=== PATIENT | female | born 1945 | race Caucasian/White ===

== ENCOUNTER → 2017-10-14 08:20 | Outpatient (CLI) | payer MEDICARE, SELFPAY | PROVIDERS: Family Provider Family Medicine; PCP Family Medicine; Visit Provider Obstetrics & Gynecology | DX: Z12.31 Encounter for screening mammogram for malignant neoplasm of breast (principal) | CPT/HCPCS: 77063; 77067 ==

== ENCOUNTER → 2018-10-16 | Outpatient (CLI) | payer MEDICARE, SELFPAY ==
--- NOTE | 2018-10-16 06:53 | BI_ITS ---
MAMMOGRAPHY - BILATERAL SCREENING - CAD and HAROON IMAGES REASON FOR EXAM: Female, 72 years old. Routine annual screening examination. PERTINENT HISTORY: Non-contributory. TECHNIQUE: Digital examination. Mediolateral oblique (MLO) and craniocaudad (CC) views of both breasts were obtained. CAD: CAD was performed on this study. Haroon images were reviewed. COMPARISON: Mammograms 10/14/2017, 10/13/2016 and 10/13/2015 FINDINGS: Breast Composition: The breasts are heterogeneously dense, which may obscure small masses. There are no suspicious masses, suspicious cluster of microcalcifications, architectural distortion or secondary sign of malignancy identified in either breast. Focal fibroglandular densities are noted bilaterally. Benign vascular and round calcifications are seen in both breasts. No other significant abnormalities are identified. CAD and Haroon were reviewed. BI/SCREEN MAMM (CAD) W/HAROON BILAT IMPRESSION: Stable bilateral screening mammogram. ASSESSMENT CATEGORY: BIRADS Category 2: Benign. A letter regarding these results will be sent to the patient by the facility within 30 days. FOLLOW UP RECOMMENDATION: Yearly follow up mammogram recommended. (A) Approximately 10% of breast cancers are not detected by mammography. A normal mammogram should not delay biopsy of a clinically suspicious abnormality. [id number] Electronically Signed: America Fitzgerald DO at 21:17 EDT Tel , Service support ,
== END | disposition home or self-care (01) ==
LOC: OPBI 07:26
PROVIDERS: Family Provider Family Medicine; PCP Family Medicine; Referring Provider Obstetrics & Gynecology; Visit Provider Obstetrics & Gynecology
DX: Z12.31 Encounter for screening mammogram for malignant neoplasm of breast (principal)
CPT/HCPCS: 77063; 77067

== ENCOUNTER → 2019-10-18 | Outpatient (CLI) | payer MEDICARE, SELFPAY ==
--- NOTE | 2019-10-18 07:03 | BI_ITS ---
MAMMOGRAPHY - BILATERAL SCREENING 3-D TOMOSYNTHESIS REASON FOR EXAM: Female, 73 years old. Routine screening PERTINENT HISTORY: FAM HX MAT AUNT AGE 45 -- NO SX. TECHNIQUE: 2-D mammograms and 3-D Tomosynthesis of the breast (s) were performed. CAD was performed. COMPARISON: 06/16/2018 FINDINGS: The breast composition is heterogeneously dense that can obscure small breast masses. Scattered benign calcifications are seen. No dense spiculated masses or suspicious microcalcifications are identified. No architectural distortion is identified. There is no skin thickening or retraction. There has been no significant change since the prior study. BI/SCREEN MAMM (CAD) W/HAROON BILAT IMPRESSION: No mammographic signs of malignancy. Routine yearly mammograms recommended. ASSESSMENT CATEGORY: BIRADS Category 2: Benign. A letter regarding these results will be sent to the patient by the facility within 30 days. FOLLOW UP RECOMMENDATION: Yearly follow up mammogram recommended. (A) Approximately 10% of breast cancers are not detected by mammography. A normal mammogram should not delay biopsy of a clinically suspicious abnormality. Electronically Signed: Jacinto Norton MD at 12:50 EDT , Service support ,
== END | disposition home or self-care (01) ==
LOC: OPBI 07:00
PROVIDERS: PCP Family Medicine; Referring Provider Obstetrics & Gynecology; Visit Provider Obstetrics & Gynecology
DX: Z12.31 Encounter for screening mammogram for malignant neoplasm of breast (principal)
CPT/HCPCS: 77063; 77067

== ENCOUNTER 2020-09-29 11:04 | Emergency (ER) | payer MEDICARE, SELFPAY ==
[2020-09-29 11:04] VITALS: BP 170/85; PULSE 87; RESP 18; TEMP 35.7; O2SAT 100; BMI 23.6
--- NOTE | 2020-09-29 11:22 | RAD_ITS ---
STUDY: X-RAY - LEFT SHOULDER REASON FOR EXAM: Female, 74 years old. trauma, shoulder pain TECHNIQUE: 2 view(s) of the shoulder. COMPARISON: None. FINDINGS: Inferior dislocation of the glenohumeral joint. Normal acromioclavicular joint. Normal acromion. Normal humeral head and visualized proximal humerus. The soft tissue structures are unremarkable. Normal visualized pulmonary apex. RAD/Shoulder min 2 Views IMPRESSION: Inferior dislocation of the glenohumeral joint. Electronically Signed: Jose Cruz Reid MD at 12:09 EDT Tel , Service support ,
[2020-09-29] MEDS: Acetaminophen 500 MG Tablet 1000 MG PO (11:29)
[2020-09-29] MEDS: Ondansetron ODT 4 MG Tablet PO (11:30)
--- NOTE | 2020-09-29 11:32 | EDS_ITS ---
HPI History of Present Illness Chief Complaint: Upper Extremity Injury Informant: patient and spouse/S.O. Narrative Narrative: Patient had a slip and fall. This was a mechanical trip. Was not syncope. She reached out and landed on her left hand which slid forward. She has some mild discomfort of her left hand elbow. Mostly her left shoulder hurts. Her shoulder is in an upward position at this time. However, she states she was able to get it down before. But spasm seems to keep it up. She denies hitting her head. She denies any pulmonary or chest symptoms. Patient is also allergic to almost are all narcotics. They cause significant nausea and vomiting. She cannot tolerate Tylenol so I will get her this. I will also give her Zofran to see if we can control her nausea pending the need for further medications. Patient is a history of high blood pressure Multiple allergies reviewed Medications and include hydrochlorothiazide and lisinopril PFSH PFSH no medical history Home Medications ondansetron HCl [Zofran] 4 mg PO Q6H PRN #14 tab 09/29/20 [Rx Last Taken Unknown] tramadol 50 mg PO Q6H PRN 3 Days #10 tab 09/29/20 [Rx Last Taken Unknown] Allergy/AdvReac Type Severity Reaction Status Date / Time acetaminophen Allergy Other Verified 09/29/20 11:07 [From Darvocet-N] oxycodone [From Percocet] Allergy Other Verified 09/29/20 11:07 Penicillins [PCN] Allergy Rash Verified 09/29/20 11:07 propoxyphene Allergy Other Verified 09/29/20 11:07 [From Darvocet-N] Social History Smoking Status: Never smoker ROS ROS ED Constitutional Constitutional ED: Denies frequent falls Eyes Eyes: Denies blurry vision or change in vision ENT ENT ED: Denies rhinorrhea Cardiovascular Cardiovascular: Denies chest pain Respiratory/Chest Respiratory/Chest: Denies dyspnea Gastrointestinal Gastrointestinal: Denies abdominal pain, nausea or vomiting Musculoskeletal Musculoskeletal: Reports other Details: See history of present illness. ; Denies back pain or neck pain Integumentary Reports Abrasions Neurologic Neurologic: Denies headache(s) or weakness Hematologic/Lymphatic Hematologic/Lymphatic: Denies easy bleeding or easy bruising EXAM Physical Exam Const Vital Signs: 09/29/20 11:04 Temperature 96.2 F L Temperature Source Temporal Pulse Rate 87 Respiratory Rate 18 Blood Pressure 170/85 H Blood Pressure Mean 113 Pulse Ox 100 Oxygen Delivery Method Room Air Positive well nourished and well developed General Appearance ED: well developed HEENT normocephalic and atraumatic; Negative for trauma Eyes PERRL and EOMs intact bilaterally Neck full ROM and supple General: Negative for tenderness Chest Wall inspection of chest normal Resp normal respiratory effort and clear to auscultation bilaterally Effort and Inspection: Negative for pain with movement Auscultation: Negative for wheezes Cardio regular rate and regular rhythm GI non-tender Palpation: soft Back/Spine no CVA tenderness Thoracic Spine / Upper Back: Negative for thoracic spinal tenderness Lumbar Spine / Lower Back: Negative for lumbar spinal tenderness Extremity Extremity Narrative: Patient has an abrasion to her left thenar eminence and left elbow. No notable tenderness is that in that area. Her left shoulder is held in an upright position. Distal pulses are intact. I did not move this down initially pending x-rays. Neuro oriented x3 Sensorium / Orientation: alert MDM MDM MDM Narrative Medical decision making narrative: Repeat imaging after procedural sedation and reduction shows good position. Patient feels much better. She states the wrist and elbow are not really hurting now. They are not tender. Her exam is much easier as she is much more relaxed and not having pain from the shoulder. We will cancel these x-rays at this time. She will follow up with orthopedics. I explained that she can have stiffness from the shoulder. She should see o rthopedics in the next couple days. I will write her for some pain meds. I will write for some Zofran as she has had problems with nausea with pain meds. Procedures Other Procedures Procedure(s): Procedural sedation and left shoulder reduction. I discussed risk benefits and options with patient and her . She did want to pursue sedation. Last meal was over 5 hours ago. Only problems with anesthesia or sensitivity to dosage of medicines. She has a Mallampati of 2. No significant cardiorespiratory illnesses. Patient is preoxygenated. All questions were answered. A timeout was done. She received a total of 60 mg of Diprivan?20, 20, 20. We had good sedation. No hypoxia. Slight external rotation and traction reduce the shoulder clinically. It is in good position clinically. Patient woke up and she is talking to us. She can tell me exactly what finger on touching. Motor sense is also intact. She has normal capillary refill. We are awaiting postreduction x-rays. Discharge Plan Triage Chief Complaint: Upper Extremity Injury ED Provider: Roddy Harrison Dx/Rx/DC Orders Clinical Impression: Fall from slipping, Dislocation of shoulder, left, closed, Contusion of elbow, left, Contusion of hand, left Instructions: ED Dislocation: Shoulder (Reduced), ED Sling and Swathe Prescriptions: New ondansetron HCl [Zofran] 4 mg tablet 4 mg PO Q6H PRN (Reason: nausea and vomiting) Qty: 14 RF: 0 tramadol 50 mg tablet 50 mg PO Q6H PRN (Reason: pain) 3 Days Qty: 10 RF: 0 Primary Care Provider: Zoë Ruth Referrals: Roma Leary DO [STAFF PHYSICIAN] - 2 Days Zoë Ruth MD [Primary Care Provider] - Disposition Disposition: Home, Self Care
[2020-09-29 12:49] VITALS: BP 119/68; BP 123/63; BP 143/80; BP 161/67; PULSE 77; PULSE 81; PULSE 82; PULSE 85; PULSE 90; PULSE 94; RESP 14; RESP 16; RESP 18; O2SAT 100; O2SAT 98; O2SAT 99
[2020-09-29] MEDS: Morphine 2 MG/ML Syringe IV (12:54)
--- NOTE | 2020-09-29 13:15 | RAD_ITS ---
INDICATION: post reduction EXAMINATION/TECHNIQUE: X-RAY - LEFT XR Shoulder Min 2 Views 2 VIEWS COMPARISON: Previous left shoulder x-rays obtained earlier on 2020 FINDINGS: The left humeral head is now in the better anatomic position and alignment. There is some mild irregularity involving the superior aspect of the humeral head. On these limited to x-rays of the left humeral head determination of the a Hill-Sachs deformity cannot be completely evaluated or and included or excluded on this study. Dedicated 3 view x-rays of the left shoulder might be helpful for additional evaluation. 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 RAD/Shoulder min 2 Views IMPRESSION: There has been interval reduction of the previously noted dislocated left shoulder which is now in good position and alignment. There is some irregularity of the superior lateral humeral head, and an underlying Hill-Sachs deformity cannot be excluded. Electronically Signed: Rodney Bowman DO at 13:52 EDT Tel , Service support ,
[2020-09-29 13:25] VITALS: BP 119/76; PULSE 84; PULSE 86; RESP 18; O2SAT 98; O2SAT 99
[2020-09-29] MEDS: Propofol 200 MG/20 ML Vial 20 MG IV BOLUS (13:28)
[2020-09-29 14:33] VITALS: BP 113/62; PULSE 77; RESP 18; O2SAT 96
== END 2020-09-29 14:39 | disposition home or self-care (01) ==
PROVIDERS: Emergency Provider Emergency Medicine; PCP Internal Medicine
DX: S43.085A Other dislocation of left shoulder joint, initial encounter (principal); S50.02XA Contusion of left elbow, initial encounter; S60.222A Contusion of left hand, initial encounter; I10 Essential (primary) hypertension; W01.0XXA Fall on same level from slipping, tripping and stumbling without subsequent striking against object, initial encounter; Y93.89 Activity, other specified; Y92.009 Unspecified place in unspecified non-institutional (private) residence as the place of occurrence of the external cause; Y99.8 Other external cause status
CPT/HCPCS: 23650; 73030; 96374; 96375; 99152; 99284; J7030; A4216

== ENCOUNTER → 2020-10-20 07:02 | Outpatient (CLI) | payer MEDICARE, SELFPAY ==
--- NOTE | 2020-10-20 07:04 | BI_ITS ---
MAMMOGRAPHY - BILATERAL SCREENING REASON FOR EXAM: Female, 74 years old. Routine annual screening examination. PERTINENT HISTORY: Aunt with breast cancer. TECHNIQUE: Digital bilateral breast haroon (3D mammographic acquisition) in the CC and MLO projections. 2-D mediolateral oblique (MLO) and craniocaudad (CC) views of both breasts were obtained. CAD: Full Field Digital Mammography with Computer Added Detection was performed. COMPARISON: Comparison is made with prior study dated 10/18/2019 and 10/16/2018. FINDINGS: Breast Composition: The breasts are heterogeneously dense, which may obscure small masses. There are no dominant masses or suspicious calcifications. Stable benign-appearing bilateral axillary. No other significant abnormalities are identified. There has been no significant change since the prior study. BI/SCRN MAMM (CAD)W/HAROON BILAT IMPRESSION: Stable bilateral screening mammogram. Yearly follow-up mammogram recommended. (A) ASSESSMENT CATEGORY: BIRADS Category 2: Benign. A letter regarding these results will be sent to the patient by the facility within 30 days. Approximately 10% of breast cancers are not detected by mammography. A normal mammogram should not delay biopsy of a clinically suspicious abnormality. [id number] Electronically Signed: Kailash López MD at 8:30 EDT , Service support ,
== END ==
PROVIDERS: PCP Internal Medicine; Referring Provider Internal Medicine; Visit Provider Internal Medicine
DX: Z12.31 Encounter for screening mammogram for malignant neoplasm of breast (principal)
CPT/HCPCS: 77063; 77067

== ENCOUNTER 2020-11-13 11:00 | Outpatient (RCR) | payer MEDICARE, SELFPAY ==
[2020-10-01 10:37] VITALS: BMI 23.6
--- NOTE | 2020-10-08 12:19 | HP.PTEVAL ---
Patient's Visit Information AJ AREVALO is a 74 year old F referred to Physical Therapy by RODRI Fitzpatrick with a diagnosis of L shoulder dislocation. Date of Evaluation: 10/08/20 Physical Therapist: Patrick Machado PT, ATC - Visit Plan Frequency: 2-3x /Week Duration: 4-6 Weeks Plan: L shoulder overhead pulleys into flex and scaption, rotator cuff strengthening, scap stab ex's, UBE, and HEP - Subjective DOI: one week ago. Pt reports she was walking on a sidewalk and tripped, resulting in a dislocation of the L shoulder. Pt reports She has had B rotator cuff tear and repairs approx 20 years ago. Pt reports she had to go to the ER to have her shoulder relocated. Pt notes she is ambidetrious being able to use both arms equally. Pt reports no tingling or numbness in L UE. Pt notes she has no sleep difficulty secondary to pain. Pt notes she has been told she may have torn her rotator cuff. 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 Pt reports she would like to get back to her normal ex's as soon as possible. Pt reports she is in no pain today, and really hasnt been in pain since the injury date. - Objective Neuro: B UE sensation is WNL to light touch. bicepital reflex= 1/3. ROM: R shoulder flex= 155, abd= 140, ER= 65, IR WNL; L shoulder flex= 105, abd= 100, ER= 40. MMT: R shoulder 5/5 throughout, L shoulder 3-/5 and painful - Balance/Special Test Scores Quick DASH Score: 47.7250 - Goals Goal 1:: Decrease L shoulder pain x 50% to aid with IADL's Goal Time Frame: 4-6 Weeks Goal 2:: Increase L shoulder strength x 1 grade to aid with return to exercise without limitation Goal Time Frame: 4-6 Weeks Goal 3:: Increase L shoulder flex and abd ROM x 20 degrees to aid with IADL's Goal Time Frame: 4-6 Weeks Goal 4:: I with HEP Goal Time Frame: 4-6 Weeks - Rehabilitation Potential Physical Therapy Diagnosis: L shoulder pain, weakness, and limited ROM secondary to L shoulder dislocation Rehabilitation Potential: Good - Anticipated Interventions Patient/Client Instruction: Educate patient on: Condition, Plan of Care For the Purpose of:: To improve self management Therapeutic Exercise to Include: Strength training, Body mechanics, Active ROM, Scapular Strength/Stabilization For the Purpose of:: To decrease pain, To increase ROM, To improve muscle performance and motor function Cryotherapy (ice pack, ice massage): Yes For the Purpose of:: To decrease pain Thank you for the opportunity to evaluate your patient. For Medicare and Medicare HMO plans, please review the plan of care and approve it. It will need to be FAXED BACK to us at [phone] for Medicare purposes. For Medicare only, by signing this I certify the plan of care. Please let me know if there are questions or concerns regarding this plan of care. Physician Signature: Date:
--- NOTE | 2020-11-13 11:25 | HP.PTDCSUM ---
It has been my pleasure to treat AJ AREVALO referred by RODRI Fitzpatrick, with the diagnosis of L shoulder dislocation for a total of 17 visit(s). Discharge Date: Please see the following information for a summary of their discharge status. Subjective: Pain is about the same L shoulder Pain Intensity (Out of 10): 1 % Improvement: 95 Objective/Function: R shoulder pain 1/10 currently. R shoulder MMT: B shoulders are grossly 4/5 throughout. R shoulder ROM: flex= 145, abd= 150. Pt is I with HEP. Rx goals achieved Goal 1:: Decrease L shoulder pain x 50% to aid with IADL's Goal Progress: Goal Met Goal 2:: Increase L shoulder strength x 1 grade to aid with return to exercise without limitation Goal Progress: Goal Met Goal 3:: Increase L shoulder flex and abd ROM x 20 degrees to aid with IADL's Goal Progress: Goal Met Goal 4:: I with HEP Goal Progress: Goal Met Plan: Discharge to HEP If there are questions or concerns regarding this patient's physical therapy, please feel free to call me at [phone]. Thank you for the referral of this patient. Sincerely, Patrick Machado, PT, ATC Balance/Gait/Functional tests - Balance/Special Test Scores Quick DASH Score: 15.9075
== END 2020-11-13 19:00 | disposition home or self-care (01) ==
LOC: PT 11:00
PROVIDERS: PCP Internal Medicine
DX: S43.005D Unspecified dislocation of left shoulder joint, subsequent encounter (principal); X58.XXXD Exposure to other specified factors, subsequent encounter; M19.012 Primary osteoarthritis, left shoulder; Z87.828 Personal history of other (healed) physical injury and trauma
CPT/HCPCS: 97110; 97161; 97164

== ENCOUNTER → 2021-10-21 | Outpatient (CLI) | payer MEDICARE, SELFPAY ==
--- NOTE | 2021-10-21 07:07 | BI_ITS ---
MAMMOGRAPHY - BILATERAL SCREENING REASON FOR EXAM: Female, 75 years old. Routine annual screening examination. PERTINENT HISTORY: Aunt with breast cancer. TECHNIQUE: Digital bilateral breast haroon (3D mammographic acquisition) in the CC and MLO projections. 2-D mediolateral oblique (MLO) and craniocaudad (CC) views of both breasts were obtained. CAD: Full Field Digital Mammography with Computer Added Detection was performed. COMPARISON: Comparison is made with prior study dated 10/20/2020 and 10/18/2019. FINDINGS: Breast Composition: The breasts are heterogeneously dense, which may obscure small masses. There are no dominant masses or suspicious calcifications. Stable small benign-appearing bilateral axillary lymph nodes. No other significant abnormalities are identified. There has been no significant change since the prior study. BI/SCRN MAMM (CAD)W/HAROON BILAT IMPRESSION: Stable bilateral screening mammogram. Yearly follow-up mammogram recommended. (A) ASSESSMENT CATEGORY: BIRADS Category 2: Benign. A letter regarding these results will be sent to the patient by the facility within 30 days. Approximately 10% of breast cancers are not detected by mammography. A normal mammogram should not delay biopsy of a clinically suspicious abnormality. [id number] Electronically Signed: Kailash López MD at 8:00 EDT ,
== END | disposition home or self-care (01) ==
LOC: OPBI 07:04
PROVIDERS: PCP Internal Medicine; Visit Provider Internal Medicine
DX: Z12.31 Encounter for screening mammogram for malignant neoplasm of breast (principal)
CPT/HCPCS: 77063; 77067

== ENCOUNTER → 2022-10-22 | Outpatient (CLI) | payer MEDICARE, SELFPAY ==
--- NOTE | 2022-10-22 07:20 | BI_ITS ---
MAMMOGRAPHY - BILATERAL SCREENING REASON FOR EXAM: Female, 76 years old. Routine annual screening examination. PERTINENT HISTORY: Aunt with breast cancer. TECHNIQUE: Digital bilateral breast haroon (3D mammographic acquisition) in the CC and MLO projections. 2-D mediolateral oblique (MLO) and craniocaudad (CC) views of both breasts were obtained. CAD: Full Field Digital Mammography with Computer Added Detection was performed. COMPARISON: Screening mammogram from 10/21/2021, 10/20/2020. FINDINGS: Breast Composition: The breasts are heterogeneously dense, which may obscure small masses. There are no dominant masses or suspicious calcifications. Stable small benign-appearing bilateral axillary lymph nodes. No other significant abnormalities are identified. There has been no significant change since the prior study. BI/SCRN MAMM (CAD)W/HAROON BILAT IMPRESSION: Stable bilateral screening mammogram. Yearly follow-up mammogram recommended. (A) ASSESSMENT CATEGORY: BIRADS Category 2: Benign. A letter regarding these results will be sent to the patient by the facility within 30 days. Approximately 10% of breast cancers are not detected by mammography. A normal mammogram should not delay biopsy of a clinically suspicious abnormality. Electronically Signed: Devon Wallace DO at 11:44 EDT ,
== END | disposition home or self-care (01) ==
PROVIDERS: PCP Internal Medicine; Referring Provider Obstetrics & Gynecology; Visit Provider Obstetrics & Gynecology
DX: Z12.31 Encounter for screening mammogram for malignant neoplasm of breast (principal)
CPT/HCPCS: 77063; 77067

== ENCOUNTER → 2022-11-23 | Outpatient (CLI) | payer MEDICARE, SELFPAY ==
--- NOTE | 2022-11-23 08:43 | BD_ITS ---
STUDY: DUAL ENERGY X-RAY ABSORPTIOMETRY / DXA REASON FOR EXAM: Female, 76 years old. Post menopausal TECHNIQUE: Bone Mineral Density (BMD) measurements of lumbar spine and bilateral hips were obtained. COMPARISON: None. FINDINGS: Lumbar Spine (L1-L4): g/cm2 (0.897) / T-score (-1.4) / Z-score (1.1) Findings are suggestive of osteopenia with a low fracture risk. Left Femur Total: g/cm2 (0.828) / T-score (-0.9) / Z-score (1.0) Left Femoral Neck: g/cm2 (0.729) / T-score (-1.1) / Z-score (1.1) Right Femur Total: g/cm2 (0.869) / T-score (-0.6) / Z-score (1.3) Right Femoral Neck: g/cm2 (0.733) / T-score (-1.0) / Z-score (1.1) BD/Dexa Bone Density Study IMPRESSION: The patient is considered osteopenic as outlined below according to World Nba Organization (WHO) criteria with a low fracture risk. Reference Information: The T-score is the number of standard deviations above or below the standard which is normal for young adults at their peak bone mineral density. The World Health Organization (WHO) interprets the T-scores as follows: Above -1 Normal bone density Between -1 and -2.5 Osteopenia Equal to / or below -2.5 Osteoporosis As a practical clinical guideline, osteopenia may be graded as follows: Mild -1 through -1.5 Moderate -1.6 through -2.0 Severe -2.1 through -2.4 The Z-score is the number of standard deviations above or below age-matched controls. A Z-score of less than -1.5 would be considered abnormal. References: 1. NIH Osteoporosis and Related Bone Diseases www osteo.org 2. International Society for Clinical Densitometry www iscd.org 3. National Osteoporosis Foundation www nof.org Electronically Signed: Kailash López MD at 14:05 EDT ,
== END | disposition home or self-care (01) ==
LOC: OPBD 08:26
PROVIDERS: PCP Internal Medicine; Referring Provider Internal Medicine; Visit Provider Internal Medicine
DX: Z78.0 Asymptomatic menopausal state (principal)
CPT/HCPCS: 77080

== ENCOUNTER → 2023-01-15 | Outpatient (CLI) | payer MEDICARE, SELFPAY ==
[2023-01-15 08:52] LABS: Absolute Lymphocyte Count 2.15 X10^3/uL (0.83-4.51); Absolute Neutrophil Count 2.1 X10^3/uL (2.0-7.7); Basophil# 0.04 X10^3/uL; Basophil% 0.8 % (0-1); Eosinophil# 0.19 X10^3/uL; Eosinophils% 3.7 % (0-5); Hematocrit 38.6 % (37-47); Hemoglobin 12.3 g/dL (12.0-15.0); Lymphocyte # 2.15 X10^3/ul (0.83-4.51); Lymphocyte % 42.1 % (19-41); Mean Corp Hgb Conc 31.9 g/dL (32-36); Mean Corpuscular Hgb 29.1 pg (27.0-32.0); Mean Corpuscular Volume 91.3 fL (81-99); Mean Platelet Vol. 9.3 fl (6.2-12.0); Monocyte% 11.7 % (0-10); NRBC Flagged by Analyzer 0 % (0-5); Neutrophil # 2.12 X10^3/uL (2.7-7.7); Neutrophil % 41.5 % (47-70); Platelet Count 382 K/mm3 (150-450); RBC Distribution Width CV 13.4 % (11.6-14.6); RBC Distribution Width SD 45.2 fl (35.1-43.9); Red Blood Count 4.23 M/mm3 (4.2-5.4); White Blood Count 5.1 K/mm3 (4.4-11.0)
[2023-01-15 09:22] LABS: ALB/GLOB Ratio 0.9 RATIO (0.9-2.4); AST(SGOT) 24 U/L (15-37); Alanine Aminotransfer ALT/SGPT 26 U/L (13-56); Albumin, Serum 3.7 g/dL (3.2-5.0); Alkaline Phosphatase 88 U/L (45-117); Anion Gap 6 (5-15); BUN 21 mg/dL (7-18); Calcium,Total 9.3 mg/dL (8.5-10.1); Chloride 107 mmol/L (98-107); Cholesterol 205 mg/dL (200); Creatinine, Serum 0.84 mg/dL (0.55-1.02); EST Glomerular Filtration Rate 70 mL/min (>60); Est Glom Filt Rate - Afr Amer 85 mL/min (>60); Globulin 4.1 g/dL (2.2-4.2); Glucose 98 mg/dL (74-106); High Density Lipoprotein 66 mg/dL; Potassium 4.7 mmol/L (3.5-5.1); Protein, Total 7.8 g/dL (6.4-8.2); Sodium Level 140 mmol/L (136-145); Triglycerides 118 mg/dL; Very Low Density Lipoprotein 24 mg/dL (5-40)
[2023-01-17 08:57] LABS: Vitamin D,25 Hydroxy 55.6 ng/mL
== END | disposition home or self-care (01) ==
LOC: LAB 07:55
PROVIDERS: PCP Internal Medicine; Referring Provider Internal Medicine; Visit Provider Internal Medicine
DX: I10 Essential (primary) hypertension (principal); M85.80 Other specified disorders of bone density and structure, unspecified site; E78.5 Hyperlipidemia, unspecified
CPT/HCPCS: 36415; 80053; 80061; 82306; 85025

== ENCOUNTER → 2023-10-24 | Outpatient (CLI) | payer MEDICARE, SELFPAY ==
--- NOTE | 2023-10-24 07:03 | BI_ITS ---
MAMMOGRAPHY - BILATERAL SCREENING REASON FOR EXAM: Female, 77 years old. Routine annual screening examination. PERTINENT HISTORY: Aunt with breast cancer. TECHNIQUE: Digital bilateral breast haroon (3D mammographic acquisition) in the CC and MLO projections. 2-D mediolateral oblique (MLO) and craniocaudad (CC) views of both breasts were obtained. CAD: Full Field Digital Mammography with Computer Added Detection was performed. COMPARISON: Comparison is made with prior study October 22, 2022 and October 21, 2021. FINDINGS: Breast Composition: The breasts are heterogeneously dense, which may obscure small masses. There are no dominant masses or suspicious calcifications. Stable benign-appearing bilateral axillary lymph nodes. No other significant abnormalities are identified. There has been no significant change since the prior study. BI/SCRN MAMM (CAD)W/HAROON BILAT IMPRESSION: Stable bilateral screening mammogram. Yearly follow-up mammogram recommended. (A) ASSESSMENT CATEGORY: BIRADS Category 2: Benign. A letter regarding these results will be sent to the patient by the facility within 30 days. Approximately 10% of breast cancers are not detected by mammography. A normal mammogram should not delay biopsy of a clinically suspicious abnormality. [id number] Electronically Signed: Kailash López MD at 8:23 EDT ,
== END | disposition home or self-care (01) ==
LOC: OPBI 07:02
PROVIDERS: PCP Internal Medicine; Referring Provider Obstetrics & Gynecology; Visit Provider Obstetrics & Gynecology
DX: Z12.31 Encounter for screening mammogram for malignant neoplasm of breast (principal)
CPT/HCPCS: 77063; 77067

== ENCOUNTER → 2023-12-17 | Outpatient (CLI) | payer MEDICARE, SELFPAY ==
[2023-12-17 08:47] LABS: Absolute Lymphocyte Count 2.28 X10^3/uL (0.83-4.51); Absolute Neutrophil Count 2.9 X10^3/uL (2.0-7.7); Basophil# 0.03 X10^3/uL; Basophil% 0.5 % (0-1); Eosinophils% 3.3 % (0-5); Hematocrit 38.9 % (37-47); Hemoglobin 12.3 g/dL (12.0-15.0); Lymphocyte # 2.28 X10^3/ul (0.83-4.51); Lymphocyte % 37.1 % (19-41); Mean Corp Hgb Conc 31.6 g/dL (32-36); Mean Corpuscular Hgb 28.9 pg (27.0-32.0); Mean Corpuscular Volume 91.5 fL (81-99); Mean Platelet Vol. 9.3 fl (6.2-12.0); Monocyte# 0.69 X10^3/uL; Monocyte% 11.2 % (0-10); NRBC Flagged by Analyzer 0 % (0-5); Neutrophil # 2.92 X10^3/uL (2.7-7.7); Neutrophil % 47.4 % (47-70); Platelet Count 395 K/mm3 (150-450); Red Blood Count 4.25 M/mm3 (4.2-5.4); White Blood Count 6.2 K/mm3 (4.4-11.0)
[2023-12-17 09:08] LABS: AST(SGOT) 26 U/L (15-37); Alanine Aminotransfer ALT/SGPT 30 U/L (13-56); Albumin, Serum 3.9 g/dL (3.2-5.0); Alkaline Phosphatase 101 U/L (45-117); Anion Gap 6 (5-15); BUN 27 mg/dL (7-18); BUN/Creat Ratio 30.9 RATIO (10-20); Calcium,Total 9.3 mg/dL (8.5-10.1); Chloride 107 mmol/L (98-107); Cholesterol 242 mg/dL (200); Creatinine, Serum 0.87 mg/dL (0.55-1.02); EST Glomerular Filtration Rate 67 mL/min (>60); Est Glom Filt Rate - Afr Amer 81 mL/min (>60); Globulin 4.1 g/dL (2.2-4.2); Glucose 97 mg/dL (74-106); High Density Lipoprotein 76 mg/dL; Potassium 4.3 mmol/L (3.5-5.1); Sodium Level 139 mmol/L (136-145); Triglycerides 96 mg/dL; Very Low Density Lipoprotein 19 mg/dL (5-40)
[2023-12-19 09:56] LABS: Vitamin D,25 Hydroxy 39.9 ng/mL
== END | disposition home or self-care (01) ==
LOC: LAB 07:26
PROVIDERS: PCP Internal Medicine; Referring Provider Internal Medicine; Visit Provider Internal Medicine
DX: E78.5 Hyperlipidemia, unspecified (principal); I10 Essential (primary) hypertension; M85.80 Other specified disorders of bone density and structure, unspecified site
CPT/HCPCS: 36415; 80053; 80061; 82306; 85025

== ENCOUNTER → 2024-06-16 | Outpatient (CLI) | payer MEDICARE, SELFPAY ==
[2024-06-16 12:31] LABS: Cholesterol 220 mg/dL (<=200); High Density Lipoprotein 62 mg/dL; Low Density Lipoprotein Calc. 133 mg/dL; Triglycerides 130 mg/dL; Very Low Density Lipoprotein 26 mg/dL (5-40); cholesterol:hdl ratio screen 3.58
== END | disposition home or self-care (01) ==
LOC: LAB 06:51
PROVIDERS: PCP Internal Medicine; Referring Provider Internal Medicine; Visit Provider Internal Medicine
DX: E78.5 Hyperlipidemia, unspecified (principal)
CPT/HCPCS: 36415; 80061

== ENCOUNTER → 2024-10-24 | Outpatient (CLI) | payer MEDICARE, SELFPAY ==
--- OUTSIDE RECORDS SUMMARY | 2024-10-24 07:12 | XMS RPT_ITS | CCD ---
Author Organization [facility] Care Team Providers Care Salesperson Terrazzo Tiles Name Role Phone Flory LEIGH, Zoë Primary Care Provider Dr. Zoë Hernandez Primary Care Provider Dr. Zoë Hernandez Referring Provider Dr. Joslyn Stanton Attending Provider [phone] Zoë Hernandez MD Primary Care Provider Flory, Dr. Camp Primary Care Provider Leena Grande Attending Provider Unavailable Dr. Zoë Hernandez Referring Provider Dr. Joslyn Stanton Attending Provider [phone]) Dr. Kym Del Rosario Attending Provider [phone] Dr. Zoë Hernandez Primary Care Provider Dr. Zoë Hernandez Referring Provider Dr. Joslyn Stanton Attending Provider 1(3 [phone]) Dr. Kym Del Rosario Attending Provider [phone] Zoë Hernandez Primary Care Unavailable Ganta, Zoë Referring Unavailable Joslyn Stanton Attending UnavailJoslyn Martinez Referring UnavailKym Marin Primary Care Unavailable Joslyn Stanton Attending Unavailholly e Kym Del Rosario Attending Unavailable Ganta, Zoë Primary Care Unavailable Ganta, Zoë Referring Unavailable Kem Aceves Attending Unavailable Ganta, Zoë Primary Care Unavailable Ganta, Zoë Referring Unavailable Kym Del Rosario Attending Unavailable Kym Del Rosario Referring Unavailable Ganta, Zoë Primary Care Unavailable Kym Del Rosario Attending Unavailable Kym Del Rosario Referring [facility] Unavailable Allergies Allergy Classification Reported Allergen(s) Allergy Type Date of Onset Reaction(s) Facility (4 sources) Acetaminophen / HYDROcodone Drug Allergy 7 [facility] Work Phone: (4 sources) Azithromycin Drug Allergy 5 [facility] Work Phone: (6 sources) Erythromycin Drug Allergy 5 Hives [facility] Work Phone: (7 sources) Ibuprofen Drug Allergy 5 Vomiting [facility] Work Phone: (1 source) Penicillins Propensity to adverse reactions 5 [facility] Work Phone: (4 sources) Propoxyphene N-Acetaminophen Propensity to adverse reactions 6 [facility] Work Phone: (3 sources) Penicillins Propensity to adverse reactions 5 [facility] Work Phone: (3 sources) Acetaminophen Drug Allergy 1 Other [facility] (3 sources) oxyCODONE Drug Allergy 1 Other [facility] (3 sources) Penicillins Allergy to substance 1 Rash [facility] (3 sources) Propoxyphene Drug Allergy 1 Other [facility] (2 sources) HYDROcodone Drug Allergy 3 Nausea/Vom/Soledad rrhea [facility] (1 source) Acetaminophen Drug Allergy 4 [facility] (1 source) Erythromycin Drug Allergy 4 [facility] (1 source) HYDROcodone Drug Allergy 4 [facility] (1 source) Ibuprofen Drug Allergy 4 [facility] (1 source) oxyCODONE Drug Allergy 4 [facility] (1 source) Penicillins Drug allergy (disorder) 4 [facility] (1 source) Propoxyphene Drug Allergy 4 [facility] Medications Current Medications Medication Drug Class(es) Dates Sig (Normalized) Sig (Original) aspirin 81 mg delayed release oral tablet (10 sources) Platelet Aggregation Inhibitor, Nonsteroidal Anti-inflammatory Drug Start: 10-21-2021 take 81 mg by mouth two times weekly Aspirin Active 81 MG PO .twice a week October 21, 2021 7:07am Start: 10-01-2020 End: 10-21-2021 take 81 mg by mouth once daily Aspirin Discontinued 81 MG PO DAILY September 30, 2020 11:00pm October 21, 2021 7:08am Start: 10-11-2006 take 1 tablet by sim th two times weekly Aspirin 81 mg ORAL Tab Take by mouth. taking 81 mg twice per week 0 10/11/2006 Active Start: 10-11-2006 take 1 tablet by sim th once daily Aspirin 81 mg ORAL Tab Take one(1) tablet daily. 0 10/11/2006 Active Comment on above: Take one(1) tablet d aily. Take by mouth. takin g 81 mg twice per week calcium carbonate 1500 mg oral tablet (2 sources) Start: 06-08-19 take 1 tablet by mouth once daily Calcium Carbonate (Calcium 600) 600 mg calcium (1,500 mg) tablet Active 600 MG PO DAILY June 06, 2022 11:00pm cholecalciferol 0.05 mg oral capsule (2 sources) Vitamin D Start: 06-08-19 take 50 ug by mouth once daily Cholecalciferol (Vitamin D3) Active 50 MCG PO DAILY June 06, 2022 11:00pm Fiber Force (2 sources) Start: 06-08-19 Fiber Force Active PO DAILY June 06, 2022 11:00pm Start: 06-07-2022 Fiber Force Ac tive PO DAILY June 07, 2022 12:00am Ginkgo Biloba (12 sources) Start: 06-07-2022 take 40 mg by mouth once daily Ginkgo Biloba Active 40 MG PO DAILY June 06, 2022 11:00pm give with meal/snack Start: 06-07-2022 take 40 mg by mouth once daily Ginkgo Biloba Active 40 MG PO DAILY June 07, 2022 12:00am give with meal/snack Start: 10-21-2021 take 60 mg by mouth once Ginkg o Biloba Active 60 MG PO ONCE October 21, 2021 7:07am give with meal/snack Start: 10-21-2021 take 60 mg by mouth once Ginkg o Biloba Active 60 MG PO ONCE October 21, 2021 8:07am give with meal/snack Start: 10-01-2020 End: 10-21-2021 take 60 mg by mouth twice daily Ginkgo Biloba Disconti nued 60 MG PO TWICE A DAY September 30, 2020 11:00pm October 21, 2021 7:08am give with meal/snack Start: 10-01-2020 End: 10-21-2021 take 60 mg by mouth twice daily Ginkgo Biloba Disconti nued 60 MG PO TWICE A DAY October 01, 2020 12:00am October 21, 2021 8:08am give with meal/snack Start: 10-11-2006 take 1 tablet by sim th once daily Ginkgo Biloba (GINKGO) 60 mg ORAL Tab Take one(1) tablet daily. 0 10/11/2006 Active Comment on above: Take one(1) tablet d aily. hydroCHLOROthiazide 12.5 mg oral capsule (9 sources) Thiazide Diuretic Start: End: take 1 tablet by mouth once daily hydroCHLOROthiazide (HYDRODIURIL, ESIDRIX) 12.5 mg tablet Indications: Essential hypertension, benign Take 1 tablet by mouth once daily. 90 tablet 3 11/05/2021 Active Start: 10-01-2020 End: 11-10-2022 take 12.5 mg by mouth once daily Hydrochlorothiazide Active 12.5 MG PO DAILY November 10, 2022 8:20am Comment on above: Take 1 tablet by sim th once daily. lactobacillus acidophilus 10 mg oral tablet (7 sources) Start: take 1 capsule by mouth once daily Lactobacillus Acidophilus (Acidophilus) capsule Active 10 MG PO DAILY September 30, 2020 11:00pm Start: 09-19-2006 Lactobacillus Acidoph-Pectin (ACIDOPHILUS) ORAL Cap lisinopril 10 mg oral tablet (13 sources) Angiotensin Converting Enzyme Inhibitor Start: 11-10-2022 take 10 mg by mouth once daily Lisinopril Active 10 MG PO DAILY November 10, 2022 8:41am Start: 06-07-2022 End: 11-10-2022 take 10 mg by mouth once daily Lisinopril Discontinued 10 MG PO DAILY November 10, 2022 8:20am November 10, 2022 8:41am Start: 11-04-2020 End: 11-05-2021 take 1 tablet by mouth once daily lisinopril (ZESTRIL, PRINIVIL) 10 mg tablet Indications: Essential hypertension, benign Take 1 tablet by mouth once daily. 90 tablet 3 11/05/2021 Active Start: 10-01-2020 End: 06-07-2022 take 5 mg by mouth once daily Lisinopril Discontinued 5 MG PO DAILY September 30, 2020 11:00pm June 07, 2022 3:20pm Comment on above: Take 1 tablet by sim th once daily. Magnesium (3 sources) Start: 10-01-2020 take 250 mg by mouth once daily Magnesium Active 250 MG PO DAILY September 30, 2020 11:00pm Start: 10-01-2020 take 250 mg by mouth once elza y Magnesium Active 250 MG PO DAILY October 01, 2020 12:00am Multivitamin preparation (3 sources) Start: 10-21-2021 take 1 tablet by mouth once daily Multivitamin Active 1 TABLET PO DAILY October 20, 2021 11:00pm Start: 10-21-2021 take 1 tablet by sim th once daily Multivitamin Active 1 TABLET PO DAILY October 21, 2021 12:00am potassium gluconate 2.5 meq oral tablet (7 sources) Start: 10-01-2020 take 2.5 mEq by mouth once daily Potassium Gluconate Active 2.5 MEQ PO DAILY September 30, 2020 11:00pm Start: 09-18-2008 POTASSIUM GLUC LUCA 595 MG (99 MG) TAB Take one(1) tablet two(2) times daily. 0 09/18/2008 Active Comment on above: Take one(1) tablet t wo(2) times daily. ubidecarenone 100 mg oral capsule (5 sources) Start: 06-07-2022 Coenzyme Q10 (Coq-10) 100 mg capsule Active 100 MG PO DAILY June 07, 2022 3:16pm Start: 10-01-2020 End: 06-07-2022 Coenzyme Q10 (Coq-10) 100 mg capsule Discontinued 100 MG PO TWICE A DAY September 30, 2020 11:00pm June 07, 2022 3:20pm Vitamin B Complex (B Complex-Vitamin B12) tablet (3 sources) Start: 10-01-2020 take 1 tablet by mouth once daily Vitamin B Complex (B Complex-Vitamin B12) tablet Active 1 TABLET PO DAILY September 30, 2020 11:00pm Start: 10-01-2020 take 1 tablet by sim once daily Vitamin B Complex (B Complex-Vitamin B12) tablet Active 1 TABLET PO DAILY October 01, 2020 12:00am Completed/Discontinued Medications Medication Drug Class(es) Dates Sig (Normalized) Sig (Original) calcium carbonate 1500 mg / cholecalciferol 200 unt oral tablet (4 sources) Vitamin D Start: 02-17-2007 calcium carbonate/vitamin d3(CALCIUM 600 WITH VITAMIN D3 600 MG (1,500)-200 UNIT TAB) Take one(1) tablet twice daily. 0 02/17/2007 Active Comment on above: Take one(1) tablet t wice daily. calcium polycarbophil 625 mg oral tablet (4 sources) Start: 10-11-2006 take 1 tablet by mouth once daily calcium polycarbophil (FIBERCON) 625 mg ORAL Tab Take one(1) tablet two(2) times daily. 0 10/11/2006 Active Comment on above: Take one(1) tablet t wo(2) times daily. chromium picolinate 0.2 mg oral capsule (4 sources) Start: 02-17-2007 CHROMIUM PICOLINATE 200 MCG CAP Take one(1) tablet daily. 0 02/17/2007 Active Comment on above: Take one(1) tablet d aily. COMPOUNDED PRESCRIPTION (4 sources) Start: 09-18-2008 COMPOUNDED PRESCRIPTION Glucosamine, chondroitin/MSM liquid - 1 tablespoonful daily 0 09/18/2008 Active Comment on above: Glucosamine, chondro itin/MSM liquid - 1 tablespoonful daily MULTI-VITAMIN ORAL TAB (4 sources) Start: 10-26-2004 MULTI-VITAMIN ORAL TAB ondansetron 4 mg oral tablet (6 sources) Serotonin-3 Receptor Antagonist Start: 10-01-2020 End: 10-15-2020 take 1 tablet by mouth every eight hours Ondansetron Hcl (Zofran) 4 mg tablet Discontinued 4 MG PO Q8H September 30, 2020 11:00pm October 15, 2020 7:59am Start: 09-29-2020 End: 10-01-2020 take 1 tablet by mouth every six hours Ondansetron Hcl (Zofran) 4 mg tablet Discontinued 4 MG PO EVERY 6 HOURS 14 September 28, 2020 11:00pm October 01, 2020 1:18pm psyllium 3400 mg powder for oral suspension (4 sources) Start: 10-15-2015 take 1 dose by mouth twice daily psyllium (METAMUCIL) 3.4 gram packet Take 1 Packet by mouth twice daily. 0 10/15/2015 Active Comment on above: Take 1 Packet by sim twice daily. traMADol hydrochloride 50 mg oral tablet (3 sources) Opioid Agonist Start: 09-29-2020 End: 10-15-2020 take 50 mg by mouth every six hours Tramadol Discontinued 50 MG PO EVERY 6 HOURS 10 3 September 28, 2020 11:00pm October 15, 2020 7:59am ubidecarenone 100 mg / vitamin e 5 unt oral capsule (4 sources) Start: 02-17-2007 ubidecarenone/ vit e acetate(CO Q-10 100 MG-5 UNIT CAP) Take one(1) tablet two(2) times daily. 0 02/17/2007 Active Comment on above: Take one(1) tablet t wo(2) times daily. Problems Active Problems Problem Classification Problem Date Documented Da te Episodic/Chronic Allergic reactions (4 sources) Urticaria; Translations: [Urticaria, unspecified] 06-03-2022 Episodic Disorders of lipid metabolism (9 sources) Hyperlipidemia; Translations: [Hyperlipidemia, unspecified] Onset: 10-15-2015 10-15-2015 Chronic E Codes: Fall (3 sources) Fall on same level from slipping; Translations: [Fall on same level from slipping, tripping and stumbling without subsequent striking against object, initial encounter] 09-29-2020 Episodic Essential hypertension (11 sources) Benign essential hypertension; Translations: [Essential (primary) hypertension] Onset: 12-15-2006 12-15-2006 Chronic Joint disorders and dislocations; trauma-related (3 sources) Dislocation of shoulder joint; Translations: [Unspecified dislocation of left shoulder joint, initial encounter] 08-02-2021 Episodic Other bone disease and musculoskeletal deformities (6 sources) Osteopenia; Translations: [Other specified disorders of bone density and structure, multiple sites] Onset: 09-28-2007 10-17-2017 Episodic Other screening for suspected conditions (not mental disorders or infectious disease) (3 sources) Patient encounter status; Translations: [Encounter for screening mammogram for malignant neoplasm of breast] Onset: 10-22-2024 Episodic Superficial injury; contusion (6 sources) Contusion of elbow; Translations: [Contusion of left elbow, initial encounter] 09-29-2020 Episodic Past or Other Problems Problem Classification Problem Date Documented Da te Episodic/Chronic Other bone disease and musculoskeletal deformities (3 sources) Other specified disorders of bone density and structure, unspecified site; Translations: [Disorder of bone and cartilage, unspecified] Onset: 11-11-2023 11-10-2022 Episodic Results Test Name Value Interpretation Reference Range Facility Lipid Profileon 06-16-2024 CHOL:HDL 3.58 Normal [facility] Comment on above: Performed By: #### L 500.4100 #### [facility] [address] [id number] Cholesterol [Mass/Vol] 220 mg/dL High <=200 [facility] Comment on above: Result Comment: Chol esterol level, Desirable <200 mg/dL Borderline high cholesterol 200-239 mg/dL High cholesterol >=240 mg/dL Recommendations of the NCEP Adult Treatment Panel for the following risk-cutoff thresholds for the [place] population. Performed By: #### L 500.4100 #### [facility] [address] [place], [place], [address] Cholesterol in HDL [Mass/Vol] 62 mg/dL Normal [facility] Comment on above: Result Comment: Rosa onal Cholesterol Education Program (NCEP) guidelines: <40 mg/dL: Low HDL-cholesterol (major risk factor for CHD) >= 60 mg/dL: High HDL-cholesterol (negative risk factor for CHD) HDL-cholesterol is affected by a number of factors, e.g. smoking, exercise, hormones, sex and age. Performed By: #### L 500.4100 #### [facility] [address] [place], [place], [address] Cholesterol in LDL [Mass/Vol] 133 mg/dL Normal [facility] Comment on above: Result Comment: Bord dvbstr=968-894 mg/dL Higher Iizi=701 mg/dL or greater Performed By: #### L 500.4100 #### [facility] [address] [place], [place], [address] Cholesterol in VLDL [Mass/Vol] 26 mg/dL Normal 5-40 [facility] Comment on above: Performed By: #### L 500.4100 #### [facility] [address] [place], [place], [address] (382) Triglyceride [Mass/Vol] 130 mg/dL Normal [facility] Comment on above: Result Comment: The drugs N-Acetylcysteine and Metamizole may falsely depress this assay. Normal range: <150 mg/dL Borderline High: 150-199 mg/dL High: 200-499 mg/dL Very High: >500 mg/dL Performed By: #### L 500.4100 #### [facility] [address] [place], [place], [address] Urgent Care Visit Reporton 1 03-25-2023 Urgent Care Visit Report [facility] [address], [address] [place], [place] [address] OFFICE VISIT Date of Service: 01/24/24 MR#: [id number] Acct: [id number] Name: AJ AREVALO Rep #: [id number] : 1945 Provider: RODRI Scherer Age/Sex: 78/F Location: [facility] Status: Signed Intake Vital Signs 11/11/23 07:56 01/24/24 09:07 Height 5 ft 2 in Weight: 136 lb 4 oz 139 lb BMI 24.9 BP 128/78 H 120/78 Blood Pressure Location Lt brachial Lt brachial Position Sitting Sitting Respiration 16 15 Pulse 60 87 Pulse Source Monitor NIBP Temp 98.0 F 97.7 F L Temp Source Temporal Oral Pulse Oximetry (%) 99 98 Oxygen Delivery Method room air room air Intake Visit Reasons: SINSUS COMPLAINT/CHEST CONGESTION/R EAR COMPLAINT Chief Complaint: sinus complaint/chest congestion 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 Required: No Is patient in pain?: No Allergies erythromycin base Allergy (Intermediate, Verified 11/11/23 07:54) Hives hydrocodone (From Vicodin) Allergy (Intermediate, Verified 11/11/23 07:54) Nausea/Vom/Diarrhea ibuprofen (From Motrin) Allergy (Mild, Verified 11/11/23 07:54) Vomiting acetaminophen (From Darvocet-N) Allergy (Verified 11/11/23 07:54) Other oxycodone (From Percocet) Allergy (Verified 11/11/23 07:54) Other Penicillins (PCN) Allergy (Verified 11/11/23 07:54) Rash propoxyphene (From Darvocet-N) Allergy (Verified 11/11/23 07:54) Other Is last menstrual period known: No Post menopausal: No Have you fallen in the past year?: No Nurse's Note: sinus congestion for 1 month stated began December 29. Declined covid/flu test. [facility] Medical History Health care maintenance Osteopenia Hives Hyperlipidemia Hypertension Allergies High blood pressure Surgical History History of salpingo-oophorectomy History of surgery on wrist Hx of arthroscopy of left knee Hx of rotator cuff surgery Family History Brother Seizures Hypertension Myocardial infarction Hypercholesterolemia Father Myocardial infarction Asthma Angina at rest Aunt Breast cancer Sister Asthma Social History Smoking Status: Never smoker alcohol intake: never substance use type: does not use caffeine: No what type of physical activity do you participate in: bicycling, yoga and aerobics frequency: daily seatbelt use: always do you feel safe at home: Yes additional social history: -Jose Cruz [facility] HPI Chief Complaint: sinus complaint/chest congestion Details: AJ AREVALO, is a 78 F who presents to the office today for [facility] at [facility] for approximately 4-5-week history of progressively worsening L>R facial pressure/congestion with purulent postnasal drip/cough and bilateral ear pressure and productive purulent cough after applying hot compresses to her face. No complaints of fever, chills, myalgias, fatigue, runny nose, or nausea/vomiting/diarrhe a. No complaints of chest pain/shortness of breath/dyspnea on exertion. No close contacts with similar complaints. No other associated symptoms and no other alleviating/aggravating factors. ROS Const Constitutional: No other (as above) Exam Const General: cooperative, healthy appearing and no acute distress Nutritional Appearance: average body habitus Orientation: alert, awake and oriented x3 HENMT Head: normal to inspection Ears: hearing grossly normal bilaterally, external ears normal, TM's normal bilaterally and EAC's normal Nose: external nose normal, nares normal, septum normal and no nasal discharge Face and sinus: normal facial exam, left more so than right maxillary sinuses palpable tender (with left greater than right maxillary fullness to palpation) and face asymmetric (left face with coleman appearance) Mouth: oral mucosae normal, lip normal, tongue normal and oropharynx normal Throat: posterior oropharynx normal, tonsils normal, uvula midline and postnasal drainage (Purulent) Eyes General: appearance normal, both eyes and all related structures Neck Neck: normal visual inspection, full ROM, no meningeal signs, supple and lymphadenopathy (Bilateral anterior cervical lymph node swelling/tender to palpation) Neck mass: No Thyroid: thyroid normal Chest Chest palpation inspection: normal inspection of the chest Resp Effort Inspection: normal respiratory effort and able to speak in complete sentences Auscultation: Bilateral: Clear to Auscultation Cardio Palpation: normal PMI Rate: regular rate Rhythm: regular rhythm Heart Sounds: S1 normal, S2 normal, no gallops, no murmurs and no rubs Pulses: radial pulses present GI Inspection: n (more content not included)... Normal [facility] Vitamin D,25 Hydroxyon 12-18 Vitamin D 25-OH 39.9 ng/mL Normal [facility] Comment on above: Result Comment: Aranza min D 25(OH) Status Range Deficiency <20 ng/mL (50nmol/L) Insufficiency 20 - 30 ng/mL (50 - 75 nmol/L) Sufficiency 30 - 100 ng/mL (75 - 250 nmol/L) Toxicity >100 ng/mL (>250 nmol/L) Performed By: #### L 100.0100, L500.4100, L500.4050, L506.1000 #### [facility] [address] [place], [address] CBC W/Diff, Automatedon 11-28 Absolute Lymph 2.28 X10 3/uL Normal 0.83-4.51 [facility] Comment on above: Performed By: #### L 100.0100, L500.4100, L500.4050, L506.1000 #### [facility] [address] [place], [address] Absolute Neut 2.9 X10 3/uL Normal 2.0-7.7 [facility] Comment on above: Performed By: #### L 100.0100, L500.4100, L500.4050, L506.1000 #### [facility] [address] [place], [address] Basophils/100 WBC (Bld) 0.5 % Normal 0-1 [facility] Comment on above: Performed By: #### L 100.0100, L500.4100, L500.4050, [id number] #### [facility] [address] [place], [address] Eosinophils/100 WBC (Bld) 3.3 % Normal 0-5 [facility] Comment on above: Performed By: #### L 100.0100, L500.4100, L500.4050, L506.1000 #### [facility] [address] [place], [address] Erythrocyte distribution width (RBC) [Ratio] 13.0 % Normal 11.6-14.6 [facility] Comment on above: Performed By: #### L 100.0100, L500.4100, L500.4050, [id number] #### [facility] [address] [place], [address] Hematocrit (Bld) [Volume fraction] 38.9 % Normal 37-47 [facility] Comment on above: Performed By: #### L 100.0100, L500.4100, L500.4050, [id number] #### [facility] [address] [place], [address] Hemoglobin (Bld) [Mass/Vol] 12.3 g/dL Normal 12.0-15.0 [facility] Comment on above: Performed By: #### L 100.0100, L500.4100, L500.4050, [id number] #### [facility] [address] [place], [address] IG% 0.500 Normal 0.0-0.9 [facility] Comment on above: Result Comment: IG% - Immature Granulocytes (promyelocytes, myelocytes and metamyelocytes) > 1% indicates that a LEFT SHIFT is Present. Performed By: #### L 100.0100, L500.4100, L500.4050, L506.1000 #### [facility] [address] [place], [address] Lymphocytes/100 WBC (Bld) 37.1 % Normal 19-41 [facility] Comment on above: Performed By: #### L 100.0100, L500.4100, L500.4050, [id number] #### [facility] [address] [place], [address] MCH (RBC) [Entitic mass] 28.9 pg Normal 27.0-32.0 [facility] Comment on above: Performed By: #### L 100.0100, L500.4100, L500.4050, [id number] #### [facility] [address] [place], [address] MCHC (RBC) [Mass/Vol] 31.6 g/dL Low 32-36 [facility] Comment on above: Performed By: #### L 100.0100, L500.4100, L500.4050, [id number] #### [facility] [address] [place], [address] MCV (RBC) [Entitic vol] 91.5 fL Normal 81-99 [facility] Comment on above: Performed By: #### L 100.0100, L500.4100, L500.4050, [id number] #### [facility] [address] [place], [address] Monocytes/100 WBC (Bld) 11.2 % High 0-10 [facility] Comment on above: Performed By: #### L 100.0100, L500.4100, L500.4050, L506.1000 #### [facility] [address] [place], [address] Neutrophils/100 WBC (Bld) 47.4 % Normal 47-70 [facility] Comment on above: Performed By: #### L 100.0100, L500.4100, L500.4050, L506.1000 #### [facility] [address] [place], [address] Nucleated RBC (Bld) [#/Vol] 0 10*3/uL Normal 0-5 [facility] Comment on above: Performed By: #### L 100.0100, L500.4100, L500.4050, L506.1000 #### [facility] [address] [place], [address] Platelet mean volume (Bld) [Entitic vol] 9.3 fL Normal 6.2-12.0 [facility] Comment on above: Performed By: #### L 100.0100, L500.4100, L500.4050, L506.1000 #### [facility] [address] [place], [address] Platelets (Bld) [#/Vol] 395 10*3/uL Normal 150-450 [facility] Comment on above: Performed By: #### L 100.0100, L500.4100, L500.4050, L506.1000 #### [facility] [address] [place], [address] RBC (Bld) [#/Vol] 4.25 10*6/uL Normal 4.2-5.4 [facility] Comment on above: Performed By: #### L 100.0100, L500.4100, L500.4050, L506.1000 #### [facility] [address] [place], [address] RDW SD 44.0 fl High 35.1-43.9 [facility] Comment on above: Performed By: #### L 100.0100, L500.4100, L500.4050, L506.1000 #### [facility] [address] [place], [address] WBC (Bld) [#/Vol] 6.2 10*3/uL Normal 4.4-11.0 [facility] Comment on above: Performed By: #### L 100.0100, L500.4100, L500.4050, L506.1000 #### [facility] [address] [place], [address] Comprehensive Metabolic [facility] 12-17-2023 Albumin [Mass/Vol] 3.9 g/dL Normal 3.2-5.0 [facility] Comment on above: Performed By: #### L 100.0100, L500.4100, L500.4050, L506.1000 #### [facility] [address] [place], [address] Albumin/Globulin [Mass ratio] 1.0 {ratio} Normal 0.9-2.4 [facility] Comment on above: Performed By: #### L 100.0100, L500.4100, L500.4050, L506.1000 #### [facility] [address] [place], [address] ALK P 101 U/L Normal 45-117 [facility] Comment on above: Performed By: #### L 100.0100, L500.4100, L500.4050, L506.1000 #### [facility] [address] [place], [address] ALT [Catalytic activity/Vol] 30 U/L Normal 13-56 [facility] Comment on above: Performed By: #### L 100.0100, L500.4100, L500.4050, L506.1000 #### [facility] [address] [place], [address] AST [Catalytic activity/Vol] 26 U/L Normal 15-37 [facility] Comment on above: Performed By: #### L 100.0100, L500.4100, L500.4050, L506.1000 #### [facility] [address] [place], [address] Bilirubin [Mass/Vol] 0.60 mg/dL Normal 0.20-1.00 [facility] Comment on above: Result Comment: For patients on eltrombopag therapy, use of Dimension [place] TBIL is not recommended. Performed By: #### L 100.0100, L500.4100, L500.4050, L506.1000 #### [facility] [address] [place], [address] BUN/CRE 30.9 RATIO High 10-20 [facility] Comment on above: Performed By: #### L 100.0100, L500.4100, L500.4050, L506.1000 #### [facility] [address] [place], [address] CA,Total 9.3 mg/dL Normal 8.5-10.1 [facility] Comment on above: Performed By: #### L 100.0100, L500.4100, L500.4050, L506.1000 #### [facility] [address] [place], [address] Chloride [Moles/Vol] 107 mmol/L Normal 98-107 [facility] Comment on above: Performed By: #### L 100.0100, L500.4100, L500.4050, L506.1000 #### [facility] [address] [place], [address] CO2 [Moles/Vol] 26.0 mmol/L Normal 21.0-32.0 [facility] Comment on above: Performed By: #### L 100.0100, L500.4100, L500.4050, L506.1000 #### [facility] [address] [place], [address] Creatinine [Mass/Vol] 0.87 mg/dL Normal 0.55-1.02 [facility] Comment on above: Result Comment: The validity of the calculated GFR GFRAA in patients over 70 years has not been determined. Clinical correlation is essential. Performed By: #### L 100.0100, L500.4100, L500.4050, L506.1000 #### [facility] [address] [place], [address] EST GFR - AA 81 mL/min Normal >60 [facility] Comment on above: Result Comment: Afri can Belgian GFR Calc Performed By: #### L 100.0100, L500.4100, L500.4050, L506.1000 #### [facility] [address] [place], [address] GAP 6 Normal 5-15 [facility] Comment on above: Performed By: #### L 100.0100, L500.4100, L500.4050, L506.1000 #### [facility] [address] [place], [address] GFR/1.73 sq M.predicted among non-blacks MDRD (S/P/Bld) [Vol rate/Area] 67 mL/min/{1.73_m2} Normal >60 [facility] Comment on above: Result Comment: Non- GFR Calc Performed By: #### L 100.0100, L500.4100, L500.4050, L506.1000 #### [facility] [address] [place], [address] Globulin (S) [Mass/Vol] 4.1 g/dL Normal 2.2-4.2 [facility] Comment on above: Performed By: #### L 100.0100, L500.4100, L500.4050, L506.1000 #### [facility] [address] [place], [address] Glucose [Mass/Vol] 97 mg/dL Normal 74-106 [facility] Comment on above: Performed By: #### L 100.0100, L500.4100, L500.4050, L506.1000 #### [facility] [address] [place], [address] Potassium [Moles/Vol] 4.3 mmol/L Normal 3.5-5.1 [facility] Comment on above: Performed By: #### L 100.0100, L500.4100, L500.4050, L506.1000 #### [facility] [address] [place], [address] Sodium [Moles/Vol] 139 mmol/L Normal 136-145 [facility] Comment on above: Performed By: #### L 100.0100, L500.4100, L500.4050, L506.1000 #### [facility] [address] [place], [address] T PROT 8.0 g/dL Normal 6.4-8.2 [facility] Comment on above: Performed By: #### L 100.0100, L500.4100, L500.4050, L506.1000 #### [facility] [address] [place], [address] Urea nitrogen [Mass/Vol] 27 mg/dL High 7-18 [facility] Comment on above: Performed By: #### L 100.0100, L500.4100, L500.4050, L506.1000 #### [facility] [address] [place], [address] Lipid Profileon 12-17-2023 Cholesterol [Mass/Vol] 242 mg/dL High 200 [facility] Comment on above: Result Comment: <200 mg/dL Desirable 200-240 mg/dL Borderline >240 mg/dL High Risk Performed By: #### L 100.0100, L500.4100, L500.4050, L506.1000 #### [facility] [address] [place], [address] Cholesterol in HDL [Mass/Vol] 76 mg/dL Normal [facility] Comment on above: Result Comment: The drugs N-Acetylcysteine and Metamizole may falsely depress this assay. Reference Range HDL <40 mg/dL Low HDL Cholesterol HDL >or= 60 mg/dL High HDL Cholesterol Performed By: #### L 100.0100, L500.4100, L500.4050, L506.1000 #### [facility] [address] [place], [address] Cholesterol in LDL [Mass/Vol] 147 mg/dL High 0-130 [facility] Comment on above: Performed By: #### L 100.0100, L500.4100, L500.4050, L506.1000 #### [facility] [address] [place], [address] Cholesterol in VLDL [Mass/Vol] 19 mg/dL Normal 5-40 [facility] Comment on above: Performed By: #### L 100.0100, L500.4100, L500.4050, L506.1000 #### [facility] [address] [place], [address] Triglyceride [Mass/Vol] 96 mg/dL Normal [facility] Comment on above: Result Comment: The drugs N-Acetylcysteine and Metamizole may falsely depress this assay. Serum Triglycerides Reference Interval Normal <150 mg/dL Borderline high 150 - 199 mg/dL High 200 - 499 mg/dL Very High > or = 500 mg/dL Performed By: #### L 100.0100, L500.4100, L500.4050, L506.1000 #### [facility] [address] [place], [address] Internal Medicine Office Vis iton 11-11-2023 Internal Medicine Office Visit [facility] [place], [place] [address] OFFICE VISIT Date of Service: 11/11/23 MR#: [id number] Acct: [id number] Name: AJ AREVALO Rep #: [id number] : 1945 Provider: Dr. 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 Accompanied by: Self Is patient in pain?: No Allergies erythromycin base Allergy (Intermediate, Verified 11/11/23 07:54) Hives hydrocodone (From Vicodin) Allergy (Intermediate, Verified 11/11/23 07:54) Nausea/Vom/Diarrhea ibuprofen (From Motrin) Allergy (Mild, Verified 11/11/23 07:54) Vomiting acetaminophen (From Darvocet-N) Allergy (Verified 11/11/23 07:54) Other oxycodone (From Percocet) Allergy (Verified 11/11/23 07:54) Other Penicillins (PCN) Allergy (Verified 11/11/23 07:54) Rash propoxyphene (From Darvocet-N) Allergy (Verified 11/11/23 07:54) Other Medications ???Medication ???Instructions ???Recorded ???Confirmed ???Type Lactobacillus acidophilus 10 mg PO DAILY 10/01/20 11/11/23 History (Acidophilus capsule) magnesium 250 mg tablet 250 mg PO DAILY 10/01/20 11/11/23 History potassium gluconate 2.5 mEq tablet 2.5 meq PO DAILY 10/01/20 11/11/23 History vitamin B complex (B 1 tab PO DAILY 10/01/20 11/11/23 History Complex-Vitamin B12 tablet) aspirin 81 mg tablet,delayed 81 mg PO .twice a week 10/21/21 11/11/23 History release multivitamin 1 tab PO DAILY 10/21/21 11/11/23 History Fiber Force PO DAILY 06/07/22 11/11/23 History calcium carbonate (Calcium 600) 600 mg PO DAILY 06/07/22 11/11/23 History cholecalciferol (vitamin D3) 50 50 mcg PO DAILY 06/07/22 11/11/23 History mcg (2,000 unit) capsule coenzyme Q10 100 mg capsule 100 mg PO DAILY 06/07/22 11/11/23 History (CoQ-10) hydrochlorothiazide 12.5 mg capsule 12.5 mg PO DAILY #90 caps 11/10/22 11/11/23 Rx lisinopril 10 mg tablet 10 mg PO DAILY #90 tabs 11/10/22 11/11/23 Rx Have you fallen in the past year?: No PFSH Medical History Health care maintenance Osteopenia Hives Hyperlipidemia Hypertension Allergies High blood pressure Surgical History History of salpingo-oophorectomy History of surgery on wrist Hx of arthroscopy of left knee Hx of rotator cuff surgery Family History Brother Seizures Hypertension Myocardial infarction Hypercholesterolemia Father Myocardial infarction Asthma Angina at rest Aunt Breast cancer Sister Asthma Social History Smoking Status: Never smoker alcohol intake: never substance use type: does not use caffeine: No what type of physical activity do you participate in: bicycling, yoga and aerobics frequency: daily seatbelt use: always do you feel safe at home: Yes additional social history: -Jose Cruz HPI HPI Chief Complaint: Follow-up chronic conditions Details: AJ AREVALO, is a 77 F who presents to the office today for follow-up of her chronic medical conditions. No acute concerns at this time. History of hypertension, blood pressure today at 128/78 mmHg. Does not routinely check her blood pressure readings at home but reports compliance with her medication. Stays active. No chest pain, palpitation or shortness of breath. Other chronic medical conditions are stable. ROS Const Constitutional: No body ache, chills, excessive sweating, fatigue, fever(s), frequent falls, headache(s), snoring, weakness or change in appetite Eyes Eyes: No blurry vision, change in vision, vision loss, dry eyes, bulging eyes, floaters, eye pain or Light sensitivity ENT ENT: No abnormal hearing, ear or mastoid pain, tinnitus, balance problems, nasal congestion, headache(s), neck pain or sore throat Resp Respiratory: No cough, excessive phlegm production, pain on inspiration, shortness of breath, snoring or wheezing Cardio Cardiology: No chest pain at rest, chest pain with exertion, excessive sweating, dyspnea on exertion, lightheadedness, orthopnea or palpitations Gastro GI: No abdominal pain, change in bowel habits, coffee ground emesis, constipation, cramping, diarrhea, nausea/dyspepsia or vomiting Genitourinary-Female: No burning urination, (more content not included)... 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 Is patient in pain?: No Allergies erythromycin base Allergy (Intermediate, Verified 11/07/23 08:38) Hives hydrocodone (From Vicodin) Allergy (Intermediate, Verified 11/07/23 08:38) Nausea/Vom/Diarrhea ibuprofen (From Motrin) Allergy (Mild, Verified 11/07/23 08:38) Vomiting acetaminophen (From Darvocet-N) Allergy (Verified 11/07/23 08:38) Other oxycodone (From Percocet) Allergy (Verified 11/07/23 08:38) Other Penicillins (PCN) Allergy (Verified 11/07/23 08:38) Rash propoxyphene (From Darvocet-N) Allergy (Verified 11/07/23 08:38) Other Medications ???Medication ???Instructions ???Recorded ???Confirmed ???Type Lactobacillus acidophilus 10 mg PO DAILY 10/01/20 11/07/23 History (Acidophilus capsule) magnesium 250 mg tablet 250 mg PO DAILY 10/01/20 11/07/23 History potassium gluconate 2.5 mEq tablet 2.5 meq PO DAILY 10/01/20 11/07/23 History vitamin B complex (B 1 tab PO DAILY 10/01/20 11/07/23 History Complex-Vitamin B12 tablet) aspirin 81 mg tablet,delayed 81 mg PO .twice a week 10/21/21 11/07/23 History release multivitamin 1 tab PO DAILY 10/21/21 11/07/23 History Fiber Force PO DAILY 06/07/22 11/07/23 History calcium carbonate (Calcium 600) 600 mg PO DAILY 06/07/22 11/07/23 History cholecalciferol (vitamin D3) 50 50 mcg PO DAILY 06/07/22 11/07/23 History mcg (2,000 unit) capsule coenzyme Q10 100 mg capsule 100 mg PO DAILY 06/07/22 11/07/23 History (CoQ-10) ginkgo biloba 40 mg tablet 40 mg PO DAILY 06/07/22 11/10/22 History hydrochlorothiazide 12.5 mg capsule 12.5 mg PO DAILY #90 caps 11/10/22 11/07/23 Rx lisinopril 10 mg tablet 10 mg PO DAILY #90 tabs 11/10/22 11/07/23 Rx Is last menstrual period known: No Post menopausal: Yes Patient : No : No PFSH Medical History Health care maintenance Osteopenia Hives Hyperlipidemia Hypertension Allergies High blood pressure Surgical History History of salpingo-oophorectomy History of surgery on wrist Hx of arthroscopy of left knee Hx of rotator cuff surgery Family History Brother Seizures Hypertension Myocardial infarction Hypercholesterolemia Father Myocardial infarction Asthma Angina at rest Aunt Breast cancer Sister Asthma Social History Smoking Status: Never smoker alcohol intake: never substance use type: does not use caffeine: No what type of physical activity do you participate in: bicycling, yoga and aerobics frequency: daily seatbelt use: always do you feel safe at home: Yes additional social history: -Jose Cruz History 0 Elective abortions Hx Para Spontaneous abortions Hx # Term Pregnancies Ectopic pregnancies Hx # Pregnancies Multiple births # of living children HPI Encounter for routine gynecological examination Details: AJ AREVALO is a 77 year old who presents for annual exam. Last PAP: none on file, History of abnormal PAP: no Last mammogram: 2023 History of abnormal mammogram: yes, h/o breast cancer. s/p BSO Colon cancer screening: up to date Other preventative health care screenings: dawn Del Rosario on Tuesday for annual exam Female Reproductive History Cycle Length: 21-35 Bleeding Duration: 5 Questions: metorrhagia: No, sexually active: Yes, dyspareunia: No and PCB: No Menopausal Symptoms: No hot flashes, No night sweats, No weight change, No mood changes, No difficulty concentrating, No sleep problems and No change in libido ROS Const Constitutional: Reports as per HPI; Denies fatigue, increased appetite, poor appetite, night sweats, weight gain or weight loss Cardio Card: Denies chest pain Resp Resp: Denies cough or dyspnea GI GI: Reports as per HPI; Denies abdominal pain, bloating, constipation, nausea or vomiting : Reports as per HPI and other; Denies difficulty voiding, dysuria, hematuria, hot flashes, nipple discharge, pelvic pain, prolapse symptoms, urinary frequency, urinary incontinence, urinary urgency, vaginal discharge, vaginal dryness, vaginal odor or vaginal pruritus Skin Skin/Breast: De (more content not included)... Normal [facility] Absolute lymphocyte countOrd ered By: Kym Del Rosario on 01-15-2023 Lymphocytes Auto (Unsp spec) [#/Vol] 2.15 10*3/uL 0.83-4.51 [facility] Basophil percentageOrdered B y: Kym Del Rosario on 01-15-2023 Basophils/100 WBC (Bld) 0.8 % 0-1 [facility] Bilirubin [Mass/Vol] 0.50 mg/dL 0.20-1.00 [facility] Comment on above: For patients on eltr ombopag therapy, use of Dimension [place] TBIL is not recommended. Chloride [Moles/Vol] 107 mmol/L 98-107 [facility] Cholesterol [Mass/Vol] 205 mg/dL <200 [facility] Comment on above: <200 mg/dL Desirable 200-240 mg/dL Borderline >240 mg/dL High Risk Eosinophils/100 WBC (Bld) 3.7 % 0-5 [facility] Glucose [Mass/Vol] 98 mg/dL 74-106 [facility] Neutrophils (Bld) [#/Vol] 2.1 10*3/uL 2.0-7.7 [facility] Neutrophils/100 WBC (Bld) 41.5 % 47-70 [facility] Potassium [Moles/Vol] 4.7 mmol/L 3.5-5.1 [facility] Protein [Mass/Vol] 7.8 g/dL 6.4-8.2 [facility] Sodium [Moles/Vol] 140 mmol/L 136-145 [facility] Triglyceride [Mass/Vol] 118 mg/dL <199 [facility] Comment on above: The drugs N-Acetylcy steine and Metamizole may falsely depress this assay.Serum Triglycerides Reference Interval Normal <150 mg/dL Borderline high 150 - 199 mg/dL High 200 - 499 mg/dL Very High > or = 500 mg/dL WBC (Bld) [#/Vol] 5.1 10*3/uL 4.4-11.0 [facility] Blood erythrocytes count (nu mber/volume)Ordered By: Kym Del Rosario on 01-15-2023 RBC (Bld) [#/Vol] 4.23 10*6/uL 4.2-5.4 [facility] Blood hemoglobin measurement (mass/volume)Ordered By: Kym Del Rosario on 01-15-2023 Hemoglobin (Bld) [Mass/Vol] 12.3 g/dL 12.0-15.0 [facility] Blood lymphocytes/100 leukoc ytesOrdered By: Kym Del Rosario on 01-15-2023 Lymphocytes/100 WBC (Bld) 42.1 % 19-41 [facility] Blood monocytes/100 leukocyt esOrdered By: silkecantonchino Del Rosario on 01-15-2023 Monocytes/100 WBC (Bld) 11.7 % 0-10 [facility] Blood platelet mean volumeOr dered By: Kym Del Rosario on 01-15-2023 Platelet mean volume (Bld) [Entitic vol] 9.3 fL 6.2-12.0 [facility] Determination of erythrocyte mean corpuscular volume (MCV)Ordered By: Kym Del Rosario on 01-15-2023 MCV (RBC) [Entitic vol] 91.3 fL 81-99 [facility] Hematocrit Auto (Bld) [Volum e fraction]Ordered By: Kym Del Rosario on 01-15-2023 Hematocrit (Bld) [Volume fraction] 38.6 % 37-47 [facility] Laboratory - Chemistry and C hemistry - challengeOrdered By: Kym Del Rosario on 01-15-2023 ALP [Catalytic activity/Vol] 88 U/L 45-117 [facility] ALT [Catalytic activity/Vol] 26 U/L 13-56 [facility] CO2 [Moles/Vol] 27.0 mmol/L 21.0-32.0 [facility] Globulin (S) [Mass/Vol] 4.1 g/dL 2.2-4.2 [facility] Urea nitrogen/Creatinine [Mass ratio] 25.0 mg/mg 10-20 [facility] - Hematology and Cell countsOrdered By: Kym Del Rosario on 01-15-2023 Erythrocyte distribution width (RBC) [Entitic vol] 45.2 fL 35.1-43.9 [facility] Erythrocyte distribution width (RBC) [Ratio] 13.4 % 11.6-14.6 [facility] Immature granulocytes/100 WBC (Bld) 0.200 % 0.0-0.9 [facility] Comment on above: IG% - Immature Granu locytes (promyelocytes, myelocytes and metamyelocytes) > 1% indicates that a LEFT SHIFT is Present. MCH (RBC) [Entitic mass] 29.1 pg 27.0-32.0 [facility] Nucleated RBC/100 WBC (Bld) [Ratio] 0 % 0-5 [facility] MCHC Auto (RBC) [Mass/Vol]Or dered By: Kym Del Rosario on 01-15-2023 MCHC (RBC) [Mass/Vol] 31.9 g/dL 32-36 [facility] No Panel InformationOrdered By: Kym Del Rosario on 01-15-2023 Estimated GFR (MDRD) Amer 85 mL/min >60 [facility] Comment on above: GFR Calc Estimated GFR (MDRD) Non-Af Amer 70 mL/min >60 [facility] Comment on above: Non- GFR Calc Vitamin D 25-Hydroxy 55.6 ng/mL [facility] Comment on above: Vitamin D 25(OH) Sta tus Range Deficiency <20 ng/mL (50nmol/L) Insufficiency 20 - 30 ng/mL (50 - 75 nmol/L) Sufficiency 30 - 100 ng/mL (75 - 250 nmol/L) Toxicity >100 ng/mL (>250 nmol/L) Platelets bldOrdered By: Oc Del Rosario on 01-15-2023 Platelets (Bld) [#/Vol] 382 10*3/uL 150-450 [facility] Serum or plasma albumin radha urement (mass/volume)Ordered By: Kym Del Rosario on 01-15-2023 Albumin [Mass/Vol] 3.7 g/dL 3.2-5.0 [facility] Serum or plasma albumin/glob ulin mass ratioOrdered By: Kym Del Rosario on 01-15-2023 Albumin/Globulin [Mass ratio] 0.9 {ratio} 0.9-2.4 [facility] Serum or plasma calcium radha urement (mass/volume)Ordered By: Kym Del Rosario on 01-15-2023 Calcium [Mass/Vol] 9.3 mg/dL 8.5-10.1 [facility] Serum or plasma cholesterol in HDL measurement (mass/volume)Ordered By: Kym Del Rosario on 01-15-2023 Cholesterol in HDL [Mass/Vol] 66 mg/dL >40 [facility] Comment on above: The drugs N-Acetylcy steine and Metamizole may falsely depress this assay. Reference Range HDL <40 mg/dL Low HDL Cholesterol HDL >or= 60 mg/dL High HDL Cholesterol Serum or plasma cholesterol in VLDL measurement (mass/volume)Ordered By: Kym Del Rosario on 01-15-2023 Cholesterol in VLDL [Mass/Vol] 24 mg/dL 5-40 [facility] Serum or plasma creatinine m easurement (mass/volume)Ordered By: Kym Del Rosario on 01-15-2023 Creatinine [Mass/Vol] 0.84 mg/dL 0.55-1.02 [facility] Comment on above: The validity of the calculated GFR & GFRAA in patients over 70 years has not been determined. Clinical correlation is essential. Serum or plasma low density lipoprotein (LDL) cholesterol measurement (mass/volume)Ordered By: Kym Del Rosario on 01-15-2023 Cholesterol in LDL [Mass/Vol] 115 mg/dL 0-130 [facility] Serum or plasma urea nitroge n measurement (mass/volume)Ordered By: Kym Del Rosario on 01-15-2023 Urea nitrogen [Mass/Vol] 21 mg/dL 7-18 [facility] Thin prep Papanicolaou smear with manual screeningOrdered By: Kym Del Rosario on 01-15-2023 Thin prep Papanicolaou smear with manual screening 24 U/L 15-37 [facility] Thin prep Papanicolaou smear with manual screening 6 5-15 [facility] CNOVon 11-05-2021 CNOV Office Visit (INTMWS ) AJ AREVALO ([id number]) 1945 F Date Time Provider Department 11/05/21 8:40 AM ZOË HERNANDEZ INTMWS During your visit today, we recorded the following information about you: Pulse Respiration Blood pressure Weight 72/minute 16/minute 138/72 59 kg Height 1.57 m Zoë Hernandez MD 11/05/2021 1:35 PM Signed Medicare Yearly Visit Medical B eligibilty date age 65 Date of last exam none in the past year PAST MEDICAL HISTORY Diagnosis Date Anemia, unspecified BORDERLINE BENIGN HYPERTENSION 12/15/2006 Esophageal reflux External hemorrhoids without mention of complication Mental disorder anxiety PAST SURGICAL HISTORY Procedure Laterality Date ARTHROSCOPY KNEE DIAGNOSTIC W/WO SYNOVIAL BX SPX 1995 ACL REPAIR COLONOSCOPY FLX DX W/COLLJ SPEC WHEN PFRMD 12/13/06 COLONOSCOPY FLX DX W/COLLJ SPEC WHEN PFRMD 12/13/2016 repeat 10 years OOPHORECTOMY PARTIAL/TOTAL UNI/BI OPEN REPAIR OF ROTATOR CUFF ACUTE 110/01 LEFT Rotator cuff repair OPEN REPAIR OF ROTATOR CUFF ACUTE 09/02 RIGHT Rotator cuff repair PAST SURGICAL HISTORY OF gui hand surgeries SALPINGECTOMY ALLERGIES: Darvocet A500 [Propoxyphene N-Acetaminophen], Erythromycin, Motrin [Ibuprofen], Penicillins, Vicodin [Hydrocodone-Acetaminop hen], and Zithromax [Azithromycin] Medications reviewed: Yes FAMILY HISTORY Problem Relation Age of Onset Psychiatry Mother DEMENTIA Alzheimer's Disease Mother COPD Father Heart Father Heart Brother SOCIAL HISTORY: Social History Tobacco Use Smoking status: Never Smokeless tobacco: Never Substance Use Topics Alcohol use: No Drug use: No Aj does regular aerobic exercise. She watches her diet for sodium, low fat and low cholesterol most of the time. She is trying to loose weight, around 5 pounds of it. She works out an hour and a half every day. List of current specialists seen: None in the past year- she has an eye doctor- going to [place] for 3 weeks. End of Live Planning discussed including patients advanced directive wishes: Yes I am willing to follow Aj's advanced directives. PHQ-2 / Depression screen She in the past two weeks denies having felt down, depressed, hopeless, or with little interest or pleasure in doing things. Functional Ability/Safety Screen 1. Was the patient's timed Up and Go test unsteady or longer than 30 seconds? No 2. Does the patient need help with the phone, transportation, shopping,preparing meals, housework, laundry, medications or managing money? No 3. Does your home have rugs in the hallway, lack of grab bars in the bathroom, lack of handrails on the stairs or have poor lighting? No Hearing Evaluation: within normal limits and normal PHYSICAL EXAM BP 138/72 Pulse 72 Resp 16 Ht 157 cm (5' 1.81) Wt 59 kg (130 lb) BMI 23.92 kg/m? Alert and oriented X 3: YES Body mass index is 23.92 kg/m?. ASSESSMENT/PLAN: 75 year old female The following prevention plan was discussed during the office visit and provided to the patient: - Lipid panel - Glaucoma screening Zoë Hernandez MD Patient has white coat syndrome, her blood pressures is high today but at home she is around 127 systolic, Diastolic is any in the range of 72 Referring Provider: SELF [200] Allergies As of Date: 11/05/2021 Noted Allergy Reaction DARVOCET A500 (PROPOXYPHENE N-TERRY*08/11/2005 ERYTHROMYCIN 10/26/2004 4 - Hives MOTRIN (IBUPROFEN) 10/26/2004 Comments: RINGING IN EARS PENICILLINS 10/26/2004 VICODIN (HYDROCODONE-ACETAMINOP HE*09/19/2006 ZITHROMAX (AZITHROMYCIN) 10/26/2004 Date Reviewed: 11/05/2021 Reviewed by: Ayaka Iyer LPN - Fully Assessed Reason for Visit: Medicare Wellness Exam [4060] Primary Visit Diagnosis:Medicare annual wellness visit, subsequent [Z00.00] Other Visit Diagnosis:Essential hypertension, benign [I10] Order(s):lisinopril (ZESTRIL, PRINIVIL) 10 mg tabletTake 1 tablet by mouth once daily.Disp: 90 tabletRfl: 3 hydroCHLOROthiazide (HYDRODIURIL, ESIDRIX) 12.5 mg tabletTake 1 tablet by mouth once daily.Disp: 90 tabletRfl: 3 LIPID PANEL BASIC [SQLIPB] Order #: [id number] FUTURE Prescriptions as of 11/05/2021 - lisinopril (ZESTRIL, PRINIVIL) 10 mg tablet Take 1 tablet by mouth once daily. - hydroCHLOROthiazide (HYDRODIURIL, ESIDRIX) 12.5 mg tablet Take 1 tablet by mouth once daily. - psyllium (METAMUCIL) 3.4 gram packet Take 1 Packet by mouth twice daily. - COMPOUNDED PRESCRIPTION Glucosamine, chondroitin/MSM liquid - 1 tablespoonful daily - POTASSIUM GLUCONATE 595 MG (99 MG) TAB Take one(1) tablet two(2) times daily. - calcium carbonate/vitamin d3(CALCIUM 600 WITH VITAMIN D3 600 MG (1,500)-200 UNIT TAB) Take one(1) tablet twice daily. - ubidecarenone/vit e acetate(CO Q-10 100 MG-5 UNIT CAP) Take one(1) tablet two(2) times daily. - CHROMIUM PICOLINATE 200 MCG CA (more content not included)... Normal [facility] Lipid 1996 panelon 2 Cholesterol [Mass/Vol] 215 mg/dL High <200 Cl [facility] Comment on above: Order Comment: Speci men Type: BLOOD SPECIMEN Ordering Facility: [facility] Address: [address] [place] [id number] Result Comment: <200 mg/dL, Desirable 200-239 mg/dL, Borderline high >239 mg/dL, High Performed By: #### 2 4331-1 #### [facility] CLIA [id number] [address] [place] [address] [place] [address] [place] Cholesterol in HDL [Mass/Vol] 66 mg/dL Normal >39 [facility] Comment on above: Order Comment: Angel megan Type: BLOOD SPECIMEN Ordering Facility: [facility] Address: [address] [place] [address] Result Comment: 40-5 9 mg/dL, Acceptable >59 mg/dL, High: Negative risk factor for coronary heart disease <40 mg/dL, Low: Positive risk factor for coronary heart disease Performed By: #### 2 4331-1 #### [facility] CLIA [id number] [address] [place] [address] [place] [facility] Cholesterol in LDL [Mass/Vol] 126 mg/dL High <100 [facility] Comment on above: Order Comment: Angel megan Type: BLOOD SPECIMEN Ordering Facility: [facility] Address: [address] [place] [address] Result Comment: <100 mg/dL, Optimal 100-129 mg/dL, Near optimal/above optimal 130-159 mg/dL, Borderline high 160-189 mg/dL, High >189 mg/dL, Very high Secondary prevention optimal LDL Cholesterol levels are recommended to be < 70 mg/dL Performed By: #### 2 4331-1 #### [facility] CLIA [id number] [address] [place] [address] [place] Cholesterol in LDL/Cholesterol in HDL [Mass ratio] 1.91 {ratio} Normal <2.54 [facility] Comment on above: Order Comment: Jaleelele guzman Type: BLOOD SPECIMEN Ordering Facility: [facility] Address: [address] [place] [address] Result Comment: Refe rence: 1. National Cholesterol Education Program ATP III Guideline At-A-Glance Quick Desk Reference: National Heart, Lung, and Blood [place]. National Institutes of Health. 2001: NIH Publication No. 01-3305. 2. An International Atherosclerosis Society position paper: global recommendations for the management of dyslipidemia: executive summary, Atherosclerosis. 2014: 232(2):410-413. Performed By: #### 2 4331-1 #### [facility] CLIA [id number] [address] [place], [place] [id number] [place] Cholesterol in VLDL [Mass/Vol] 23 mg/dL Normal <30 [facility] Comment on above: Order Comment: Speci men Type: BLOOD SPECIMEN Ordering Facility: [facility] Address: [address] [place] [address] Performed By: #### 2 4331-1 #### [facility] CLIA [id number] [address] [place] [address] [place] Cholesterol non HDL [Mass/Vol] 149 mg/dL High <130 [facility] Comment on above: Order Comment: Speci men Type: BLOOD SPECIMEN Ordering Facility: [facility] Address: [address] [place] [address] Result Comment: <130 mg/dL, Optimal 130-159 mg/dL, Near optimal/above optimal 160-189 mg/dL, Borderline high 190-219 mg/dL, High >219 mg/dL, Very high Secondary prevention optimal non HDL Cholesterol levels are recommended to be <100 mg/dL Performed By: #### 2 4331-1 #### [facility] CLIA [id number] [address] [place] [address] [place] Cholesterol.total/Chol esterol in HDL [Mass ratio] 3.26 {ratio} Normal <5.10 [facility] Comment on above: Order Comment: Speci men Type: BLOOD SPECIMEN Ordering Facility: [facility] Address: [address] [place] [address] Performed By: #### 2 4331-1 #### [facility] CLIA [id number] [address] [place] [address] [place] FASTING TIME 14 hrs Normal [facility] Comment on above: Order Comment: Speci men Type: BLOOD SPECIMEN Ordering Facility: [facility] Address: [address] [place] [address] Performed By: #### 2 4331-1 #### [facility] CLIA [id number] [address] [id number] [address] [place] Triglyceride [Mass/Vol] 115 mg/dL Normal <150 [facility] Comment on above: Order Comment: Speci men Type: BLOOD SPECIMEN Ordering Facility: [facility] Address: [address] [place] [address] Result Comment: <150 mg/dL, Normal 150-199 mg/dL, Borderline high 200-499 mg/dL, High >499 mg/dL, Very high Performed By: #### 2 4331-1 #### [facility] CLIA [id number] [address] [place] [address] [place] Basic metabolic 2000 panelon 11-03-2021 Anion gap [Moles/Vol] 12 mmol/L Normal 9-18 [facility] Comment on above: Order Comment: Speci men Type: BLOOD SPECIMEN Ordering Facility: [facility] Address: [address] [place], [place] [address] Performed By: #### 2 4321-2 #### [facility] CLIA [id number] [address] [place] [address] [place] Calcium [Mass/Vol] 9.8 mg/dL Normal 8.5-10.[address] [facility] Comment on above: Order Comment: Speci men Type: BLOOD SPECIMEN Ordering Facility: [facility] Address: [address] [place] [address] Performed By: #### 2 4321-2 #### [facility] CLIA [id number] [address] [place], [place] [id number] [place] Chloride [Moles/Vol] 103 mmol/L Normal 97-105 [facility] Comment on above: Order Comment: Speci men Type: BLOOD SPECIMEN Ordering Facility: [facility] Address: [address] [place] [address] Performed By: #### 2 4321-2 #### [facility] CLIA [id number] [address] [place] [address] [place] CO2 [Moles/Vol] 24 mmol/L Normal 22-30 [facility] Comment on above: Order Comment: Speci men Type: BLOOD SPECIMEN Ordering Facility: [facility] Address: [address] [place] [address] Performed By: #### 2 4321-2 #### [facility] CLIA [id number] [address] [place] [address] [place] Creatinine [Mass/Vol] 0.86 mg/dL Normal 0.58-0.96 [facility] Comment on above: Order Comment: Speci men Type: BLOOD SPECIMEN Ordering Facility: [facility] Address: [address] [place] [address] Performed By: #### 2 4321-2 #### [facility] CLIA [id number] [address] [place] [address] [place] ESTIMATED GLOMERULAR FILTRATION RATE 71 mL/min/1.73m??? Normal >=60 [facility] Comment on above: Order Comment: Speci men Type: BLOOD SPECIMEN Ordering Facility: [facility] Address: [address] [place] [address] Result Comment: Renee mated Glomerular Filtration Rate (eGFR) is calculated using the 2020 CKD-EPI creatinine equation. This equation utilizes serum creatinine, sex, and age as parameters. The creatinine assay has traceable calibration to isotope dilution-mass spectrometry. Refer to KDIGO guidelines for clinical interpretation. In patients with unstable renal function, e.g. those with acute kidney injury, the eGFR may not accurately reflect actual GFR. Performed By: #### 2 4321-2 #### [facility] CLIA [id number] [address] [place] [address] [place] Glucose [Mass/Vol] 83 mg/dL Normal 74-[address] [facility] Comment on above: Order Comment: Speci men Type: BLOOD SPECIMEN Ordering Facility: [facility] Address: [address] [place] [address] Result Comment: The [place] Diabetes Association (ADA) provides guidance for cutoff values for fasting glucose and random glucose. The ADA defines fasting as no caloric intake for at least 8 hours. Fasting plasma glucose results between 100 to 125 mg/dL indicate increased risk for diabetes (prediabetes). Fasting plasma glucose results greater than or equal to 126 mg/dL meet the criteria for diagnosis of diabetes. In the absence of unequivocal hyperglycemia, results should be confirmed by repeat testing. In a patient with classic symptoms of hyperglycemia or hyperglycemic crisis, random plasma glucose results greater than or equal to 200 mg/dL meet the criteria for diagnosis of diabetes. Reference: Standards of Medical Care in Diabetes 2016, [place] Diabetes Association. Diabetes Care. 2016.39(Suppl 1). Performed By: #### 2 4321-2 #### [facility] CLIA [id number] [address] [place] [address] [place] Potassium [Moles/Vol] 3.9 mmol/L Normal 3.7-5.1 [facility] Comment on above: Order Comment: Speci men Type: BLOOD SPECIMEN Ordering Facility: [facility] Address: [address] [place] [address] Performed By: #### 2 4321-2 #### [facility] CLIA [id number] [address] [place] [address] [place] Sodium [Moles/Vol] 139 mmol/L Normal 136-[address] [facility] Comment on above: Order Comment: Speci men Type: BLOOD SPECIMEN Ordering Facility: [facility] Address: [address] [place], [place] [address] Performed By: #### 2 4321-2 #### [facility] CLIA [id number] [address] [place] [address] [place] Urea nitrogen [Mass/Vol] 22 mg/dL High 7-21 [facility] Comment on above: Order Comment: Speci men Type: BLOOD SPECIMEN Ordering Facility: [facility] Address: [address] [place] [address] Performed By: #### 2 4321-2 #### [facility] CLIA [id number] [address] [place] [address] [place] CBC panel Auto (Bld)on 11-03 Erythrocyte distribution width (RBC) [Ratio] 13.2 % Normal 11.5-15.0 [facility] Comment on above: Order Comment: Speci men Type: BLOOD SPECIMEN Ordering Facility: [facility] Address: [address] [place] [address] Performed By: #### 5 8410-2 #### [facility] CLIA [id number] [address] [place] [address] [place] Hematocrit (Bld) [Volume fraction] 39.2 % Normal 36.0-46.0 [facility] Comment on above: Order Comment: Speci men Type: BLOOD SPECIMEN Ordering Facility: [facility] Address: [address] [place] [address] Performed By: #### 5 8410-2 #### [facility] CLIA [id number] [address] [place] [address] [place] Hemoglobin (Bld) [Mass/Vol] 12.6 g/dL Normal 11.5-15.5 [facility] Comment on above: Order Comment: Speci men Type: BLOOD SPECIMEN Ordering Facility: [facility] Address: [address] [place], [place] [address] Performed By: #### 5 8410-2 #### [facility] CLIA [id number] [address] [place] [address] [place] MCH (RBC) [Entitic mass] 29.7 pg Normal 26.0-34.0 [facility] Comment on above: Order Comment: Speci men Type: BLOOD SPECIMEN Ordering Facility: [facility] Address: [address] [place], [place] [address] Performed By: #### 5 8410-2 #### [facility] CLIA [id number] [address] [place] [address] [place] MCHC (RBC) [Mass/Vol] 32.1 g/dL Normal 30.5-36.0 [facility] Comment on above: Order Comment: Speci men Type: BLOOD SPECIMEN Ordering Facility: [facility] Address: [address] [place], [place] [address] Performed By: #### 5 8410-2 #### [facility] CLIA [id number] [address] [place] [address] [place] MCV (RBC) [Entitic vol] 92.5 fL Normal 80.0-100.0 [facility] Comment on above: Order Comment: Speci men Type: BLOOD SPECIMEN Ordering Facility: [facility] Address: [address] [place], [place] [address] Performed By: #### 5 8410-2 #### [facility] CLIA [id number] [address] [place] [address] [place] Nucleated RBC (Bld) [#/Vol] 10*3/uL Normal <0.01 [facility] Comment on above: Order Comment: Speci men Type: BLOOD SPECIMEN Ordering Facility: [facility] Address: [address] [place], [place] [address] Performed By: #### 5 8410-2 #### [facility] CLIA [id number] [address] [place] [address] [place] Platelet mean volume (Bld) [Entitic vol] 10.1 fL Normal 9.0-12.7 [facility] Comment on above: Order Comment: Speci men Type: BLOOD SPECIMEN Ordering Facility: [facility] Address: [address] [place], [place] [address] Performed By: #### 5 8410-2 #### [facility] CLIA [id number] [address] [place] [address] [place] Platelets (Bld) [#/Vol] 361 10*3/uL Normal 150-400 [facility] Comment on above: Order Comment: Speci men Type: BLOOD SPECIMEN Ordering Facility: [facility] Address: [address] [place] [address] Performed By: #### 5 8410-2 #### [facility] CLIA [id number] [address] [place] [address] [place] RBC (Bld) [#/Vol] 4.24 10*6/uL Normal 3.90-5.20 [facility] Comment on above: Order Comment: Speci men Type: BLOOD SPECIMEN Ordering Facility: [facility] Address: [address] [place] [address] Performed By: #### 5 8410-2 #### [facility] CLIA [id number] [address] [place] [address] [place] WBC (Bld) [#/Vol] 6.03 10*3/uL Normal 3.70-11.00 [facility] Comment on above: Order Comment: Speci men Type: BLOOD SPECIMEN Ordering Facility: [facility] Address: [address] [place] [address] Performed By: #### 5 8410-2 #### [facility] CLIA [id number] [address] [place] [address] [place] [facility] AJ AREVALO ([id number]) 1945 F Date Time Provider Department 10/14/21 ZOË HERNANDEZ INTWS During your visit today, we recorded the following information about you: Reji Claire, RN 10/14/2021 8:15 AM Signed Pt called in and reports she is getting a mammogram at [facility] 10/21/21. Pt asking for orders to be sent to [facility] for mammogram. Orders sent to fax # [phone]. Allergies As of Date: 10/14/2021 Noted Allergy Reaction DARVOCET A500 (PROPOXYPHENE N-TERRY*08/11/2005 ERYTHROMYCIN 10/26/2004 4 - Hives MOTRIN (IBUPROFEN) 10/26/2004 Comments: RINGING IN EARS PENICILLINS 10/26/2004 VICODIN (HYDROCODONE-ACETAMINOP HE*09/19/2006 ZITHROMAX (AZITHROMYCIN) 10/26/2004 Date Reviewed: 11/04/2020 Reviewed by: Prabhakar Eason APRN.SHIPPER RECEIVER - Fully Assessed Reason for Visit: Orders [681] Prescriptions as of 10/14/2021 - lisinopril (ZESTRIL, PRINIVIL) 10 mg tablet Take 1 tablet by mouth once daily. - hydroCHLOROthiazide (HYDRODIURIL, ESIDRIX) 12.5 mg tablet Take 1 tablet by mouth once daily. - psyllium (METAMUCIL) 3.4 gram packet Take 1 Packet by mouth twice daily. - COMPOUNDED PRESCRIPTION Glucosamine, chondroitin/MSM liquid - 1 tablespoonful daily - POTASSIUM GLUCONATE 595 MG (99 MG) TAB Take one(1) tablet two(2) times daily. - calcium carbonate/vitamin d3(CALCIUM 600 WITH VITAMIN D3 600 MG (1,500)-200 UNIT TAB) Take one(1) tablet twice daily. - ubidecarenone/vit e acetate(CO Q-10 100 MG-5 UNIT CAP) Take one(1) tablet two(2) times daily. - CHROMIUM PICOLINATE 200 MCG CAP Take one(1) tablet daily. - Aspirin 81 mg ORAL Tab Take one(1) tablet daily. - Ginkgo Biloba (GINKGO) 60 mg ORAL Tab Take one(1) tablet daily. - calcium polycarbophil (FIBERCON) 625 mg ORAL Tab Take one(1) tablet two(2) times daily. - Lactobacillus Acidoph-Pectin (ACIDOPHILUS) ORAL Cap - MULTI-VITAMIN ORAL TAB Meds Comments as of 10/18/2018: Cranberry tablets added Red Yeast Rice Problem List As Of Date 10/14/2021 Noted Resolved ANEMIA NOS [D64.9] 10/11/2014 Esophageal reflux [K21.9] 10/17/2017 Dermatophytosis of nail [B35.1] 09/19/2006 10/17/2017 BENIGN HYPERTENSION [I10] 12/15/2006 Osteopenia of multiple sites [M85.89] 09/28/2007 Hyperlipidemia LDL goal <130 [E78.5] 10/15/2015 Encounter Status:Closed by REJI CLAIRE on 10/14/21 Normal [facility] Vital Signs Date Time Vital Sign Value Performing Clinician Tanmay ortiz 11-10-2022 08:42-0400 Body height 157.[address] Zoë Hernandez Work Phone: [phone] [place] [address] 11-10-2022 08:42-0400 Body mass index (BMI) [Ratio] 24.8 kg/m2 Dr. Zoë Hernandez Work Phone: [phone] [address] 11-10-2022 08:42-0400 Body temperature 98.7 [degF] Dr. Zoë Hernandez Work Phone: [phone] [place] [address] 11-10-2022 08:42-0400 Body weight 61.[address] Zoë Hernandez Work Phone: [phone] [address] 11-10-2022 08:42-0400 Diastolic blood pressure 78 mm[Hg] Dr. Zoë Hernandez Work Phone: [phone] [address] 11-10-2022 08:42-0400 Heart rate 67 /min Dr. Zoë Hernandez Work Phone: [phone] [place] [address] 11-10-2022 08:42-0400 Respiratory rate 16 /min Dr. Zoë Hernandez Work Phone: [phone] [place] [address] 11-10-2022 08:42-0400 SaO2% (BldA) [Mass fraction] 99 % Dr. Zoë Hernandez Work Phone: [phone] [place] [address] 11-10-2022 08:42-0400 Systolic blood pressure 128 mm[Hg] Dr. Zoë Hernandez Work Phone: [phone] [place] [address] 10-27-2022 15:46-0400 Body mass index (BMI) [Ratio] 24.7 kg/m2 Dr. Zoë Hernandez Work Phone: [facility] 10-27-2022 15:46-0400 Body weight 61.[address] Zoë Hernandez Work Phone: [facility] 10-27-2022 15:46-0400 Diastolic blood pressure 81 mm[Hg] Dr. Zoë Hernandez Work Phone: [facility] 10-27-2022 15:46-0400 Systolic blood pressure 146 mm[Hg] Dr. Zoë Hernandez Work Phone: [facility] 11-05-2021 08:37-0400 Body height 157 cm Zoë Hernandez MD Work Phone: [facility] 11-05-2021 08:37-0400 Body weight 58.97 kg Zoë Hernandez MD Work Phone: [facility] 11-05-2021 08:37-0400 Diastolic blood pressure 72 mm[Hg] Zoë Hernandez MD Work Phone: [facility] 11-05-2021 08:37-0400 Heart rate 72 /min Zoë Hernandez MD Work Phone: [facility] 11-05-2021 08:37-0400 Respiratory rate 16 /min Zoë Hernandez MD Work Phone: [facility] 11-05-2021 08:37-0400 Systolic blood pressure 138 mm[Hg] Zoë Hernandez MD Work Phone: [facility] 10-21-2021 08:05-0400 Body height 157.[address] Zoë Hernandez Work Phone: [facility] Work Phone: 10-21-2021 08:05-0400 Body mass index (BMI) [Ratio] 23.9 kg/m2 Dr. Zoë Hernandez Work Phone: [facility] Work Phone: 10-21-2021 08:05-0400 Body weight 59.[address] Zoë Hernandez Work Phone: [facility] Work Phone: 10-21-2021 08:05-0400 Diastolic blood pressure 90 mm[Hg] Dr. Zoë Hernandez Work Phone: [facility] Work Phone: 10-21-2021 08:05-0400 Systolic blood pressure 138 mm[Hg] Dr. Zoë Hernandez Work Phone: [facility] Work Phone: Encounters Encounter Date Encounter Type Care Provider Facility Start: 10-24-2024 [facility] Start: 06-16-2024 End: 06-16-2024 ambulatory [facility] Facility:[facility] Start: 01-24-2024 End: 01-24-2024 ambulatory Kem MACE Facility:[facility] Start: 12-17-2023 End: 12-17-2023 ambulatory [facility] Facility:[facility] Start: 11-11-2023 End: 11-11-2023 ambulatory [facility] Facility:[facility] Start: 11-07-2023 Encounter for gynecological examination (general) (routine) without abnormal findings [facility] Start: 11-07-2023 End: 11-07-2023 ambulatory Zoë Hernandez Facility:[facility] Start: 01-15-2023 End: 01-15-[address] Zoë Hernandez Work Phone: [facility] Work Phone: Start: 01-15-2023 End: 01-15-[address] Zoë Hernandez Work Phone: [facility] Work Phone: Start: 11-23-2022 End: 11-23-[address] Zoë Hernandez Work Phone: [facility] Work Phone: Start: 11-23-2022 End: 11-23-[address] Zoë Hernandez Work Phone: [facility]Outpatient Bone Densitometry Work Phone: Start: 11-10-[address] Damari Hernandez Work Phone: [facility] Start: 11-10-2022 End: 11-10-2022 Encounter for general adult medical examination without abnormal findings Dr. Zoë Hernandez Work Phone: [facility] Start: 11-10-2022 End: 11-10-[address] Zoë Hernandez Work Phone: [facility] Work Phone: Start: 10-27-2022 End: 10-27-[address] Zoë Hernandez Work Phone: [facility] Work Phone: Start: 10-22-2022 End: 10-22-[address] Zoë Hernandez Work Phone: [facility]Outpatient Breast Imaging Work Phone: Start: 09-16-2022 Non-patient / Non-visit Dr. Amy Hernandez Work Phone: [facility] Work Phone: Start: 11-05-2021 End: 11-05-2021 Patient encounter procedure Zoë Hernandez MD Work Phone: [facility] Comment on above: Medicare annual well ness visit, subsequent (Primary Dx); Essential hypertension, benign Start: 11-03-2021 ambulatory Zoë Dee Work Phone: [facility] Comment on above: Lipid Panel Test Res ults Start: 10-21-2021 End: 10-21-[address] Zoë Hernandez Work Phone: [facility] Work Phone: Start: 10-21-2021 End: 10-21-[address] Zoë Hernandez Work Phone: [facility] Start: 10-20-2021 ambulatory Zoë Dee Work Phone: [facility] [place] Start: 05-20-2021 ambulatory Stefania (Nathan) Maria Fernanda [facility] Comment on above: Population Health Na vigation Outreach ([employer] Care Gaps) Procedures Date Procedure Procedure Detail Performing Clinician Start: 11-23-2022 Dual energy X-ray absorptiometry Dr. Zoë Hernandez Work Phone: Start: 10-22-2022 Screening mammography Leila Hernandez Work Phone: Start: 11-05-2021 Adult depression scr eening assessment Zoë Hernandez MD Work Phone: Start: 10-21-2021 Screening mammography Leila Hernandez Work Phone: Start: 10-21-2020 Adult depression scr eening assessment Stefania Colon Start: 12-13-2016 Colonoscopy Stefania wilson Plan of Treatment Date Care Activity Detail Author Start: 09-10-2030 Urine microalbumin profile DTAP,TDAP,TD (1 - Tdap) [facility] Comment on above: Postponed from 09/11 (Postponed To Appropriate Date) Start: 12-13-2026 Colonoscopy COLONOSCOPY [facility] Start: 12-13-2026 COLORECTAL CANCER SCREENING COLORECTAL CANCER SCREENING [facility] Start: 10-23-2025 LIPID SCREEN LIPID SCREEN [facility] Start: 11-03-2024 DIABETES SCREEN DIABETES SCREEN [facility] Start: 10-24-2023 DIABETES SCREEN DIABETES SCREEN [facility] Start: 11-05-2022 Adult depression screening assessment DEPRESSION SCREENING [facility] Start: 11-05-2022 ANNUAL PCP TEAM ZYGLO INSPECTOR NEIL DISEASE VISIT ANNUAL PCP TEAM CHRONIC DISEASE VISIT [facility] Start: 11-05-2021 End: 01-05-2022 Lipid 1996 panel - Serum or Plasma [facility] Work Phone: Comment on above: Expected: 11/05/2021 , Expires: 01/05/2022 Start: 11-04-2021 ANNUAL PCP TEAM ZYGLO INSPECTOR NEIL DISEASE VISIT ANNUAL PCP TEAM CHRONIC DISEASE VISIT [facility] Start: 10-29-2021 Influenza vaccination INFLUENZA (#1) [facility] Start: 10-21-2021 Adult depression screening assessment DEPRESSION SCREENING [facility] Start: 10-20-2021 End: 12-20-2021 Basic metabolic 2000 panel - Serum or Plasma BASIC METABOLIC PNL Lab Routine Essential hypertension, benign Expected: 10/20/2021, Expires: 12/20/2021 [facility] Work Phone: Comment on above: Expected: 10/20/2021 , Expires: 12/20/2021 Start: 10-20-2021 End: 12-20-2021 CBC panel - Blood by Automated count CBC Lab Routine Medication management Expected: 10/20/2021, Expires: 12/20/2021 [facility] Work Phone: Comment on above: Expected: 10/20/2021 , Expires: 12/20/2021 Start: 10-20-2021 End: 12-20-2021 SCHEDULE LAB TESTING SCHEDULE LAB TESTING Lab Routine Expected: 10/20/2021, Expires: 12/20/2021 [facility] Work Phone: Comment on above: Expected: 10/20/2021 , Expires: 12/20/2021 Start: 10-01-2021 COVID-19 VACCINE (4 - Booster for Pfizer series) COVID-19 VACCINE (4 - Booster for Pfizer series) [facility] Start: 02-28-2021 ADVANCE DIRECTIVE DISCUSSION ADVANCE DIRECTIVE DISCUSSION [facility] Start: 1990 COLOGUARD (FIT-DNA) COLOGUARD (FIT-D NA) [facility] Start: [address] COLONOGRAPHY [facility] Start: 1990 FECAL OCCULT BLOOD FECAL OCCULT BLOO D [facility] Start: 1990 SIGMOIDOSCOPY SIGMOIDOSCOPY [facility] CBC W Auto Different ial panel - Blood [facility] Lipid 1996 panel - S hui or Plasma [facility] End: 06-19-2022 Screening mammography bi 2-view breast inc cad ALTHEA SCREENING Radiology Routine Breast cancer screening by mammogram 1 Occurrences starting 05/20/2021 until 06/19/2022 [facility] Work Phone: Comment on above: 1 Occurrences starti ng 05/20/2021 until 06/19/2022 Vitamin D, 25-hydrox y measurement [facility] Immunizations Immunization Date Immunization Notes Care Provider Kera joyajenny 06-01-2021 COVID-19 vaccine, ag e 12+ yr ([employer] - LEE TOP) Zoë Hernandez MD Work Phone: [facility] 11-28-2020 influenza, seasonal, injectable [facility] 09-10-2020 tetanus and diphther ia toxoids, adsorbed, preservative free, for adult use (5 Lf of tetanus toxoid and 2 Lf of diphtheria toxoid) [facility] Work Phone: 11-26-2019 influenza, high dose seasonal, preservative-free [facility] 01-15-2019 zoster vaccine recombinant [facility] 12-16-2018 influenza, high dose seasonal, preservative-free [facility] 10-18-2018 zoster vaccine recombinant [facility] 12-31-2017 influenza, injectabl e, quadrivalent, contains preservative [facility] 01-01-2017 influenza, injectabl e, quadrivalent, contains preservative [facility] Work Phone: 12-20-2015 influenza, injectabl e, quadrivalent, contains preservative [facility] 12-07-2014 influenza, high dose seasonal, preservative-free [facility] Work Phone: 10-11-2014 pneumococcal conjuga te vaccine, 13 valent [facility] 12-12-2013 influenza, seasonal, injectable [facility] 12-30-2010 pneumococcal polysaccharide vaccine, 23 valent [facility] Work Phone: 11-28-2010 influenza virus vacc ine, unspecified formulation [facility] Work Phone: 02-25-2010 zoster vaccine, live [facility] Work Phone: 12-24-2009 tetanus and diphther ia toxoids, adsorbed, preservative free, for adult use (2 Lf of tetanus toxoid and 2 Lf of diphtheria toxoid) [facility] 12-02-2009 influenza virus vacc ine, unspecified formulation [facility] Work Phone: 11-23-2008 influenza virus vacc ine, unspecified formulation [facility] 01-03-2008 influenza virus vacc ine, unspecified formulation [facility] 12-28-2006 influenza virus vacc ine, unspecified formulation [facility] 12-20-2005 influenza virus vacc ine, unspecified formulation [facility] Work Phone: 12-24-2004 influenza virus vacc ine, unspecified formulation [facility] Work Phone: 01-10-1995 hepatitis B vaccine, adult dosage [facility] Work Phone: 07-22-1994 hepatitis B vaccine, adult dosage [facility] Work Phone: 06-14-1994 hepatitis B vaccine, adult dosage [facility] Work Phone: Payers Date Payer Category Payer Self-pay [id number] 2022 Private Health Insurance 101 [id number] 2010 Medicare [employer] MEDICARE A ETNA MEDICARE PPO [id number] 2010-Present [phone] [address] [place] [address] O [id number] 2010 Medicare [employer] MEDICARE A ETNA MEDICARE PPO [id number] 2010-Present [phone] [address] [place] [address] PPO [id number] Unknown [id number] 62 Unknown [id number] 62 Unknown [id number] 62 Unknown [id number] 62 Unknown [id number] 62 Unknown [id number] Social History Date Type Detail Facility Start: 01-03-2012 End: 11-05-2021 Tobacco smoking status NHIS Never smoked tobacco [facility] Start: 11-04-2020 End: 11-05-2021 Alcohol intake Current non-drinker of alcohol (finding) [facility] Start: 10-22-2020 End: 10-30-2021 History SDOH Alcohol Frequency 1 [facility] Start: 10-21-2019 History SDOH Alcohol Std Drinks 98 [facility] Start: 10-22-2020 End: 10-30-2021 History SDOH Social Connections Phone 5 [facility] Start: 10-22-2020 End: 10-30-2021 History SDOH Social Connections Jewish 3 [facility] Start: 10-22-2020 History SDOH Physica l Activity MPS 6 [facility] Start: 10-22-2020 End: 10-30-2021 History SDOH Stress 2 [facility] Start: 10-21-2019 Education 18 [facility] Start: 1945 Sex Assigned At Female [facility] Start: 05-10-2021 End: 11-05-2021 Exposure to SARS-CoV-2 (event) Not sure [facility] Start: 01-03-2012 End: 11-05-2021 Tobacco use and exposure Smokeless tobacco non-user [facility] Start: 10-21-2021 End: 11-10-2022 Tobacco smoking status NHIS Unknown if ever smoked [facility] Start: 10-30-2021 History SDOH Alcohol Std Drinks 0 [facility] Start: 10-30-2021 History SDOH Physica l Activity DPW 7 [facility] Start: 10-30-2021 History SDOH Physica l Activity MPS 9 [facility] Clinical Notes 09-19-2006 to 11-05-2021 Telephone Encounter - Zoë Hernandez MD - 11/05/2021 9:35 AM Katelynn Hernandez MD - 11/05/2021 8:50 AM Katelynn Hernandez MD - 05/20/2021 3:53 PM EDT Note Date & Type Note Facility 11-05-2021 Note HNO ID: [id number] Author: Zoë Hernandez MD Service: ? Author Type: Physician Type: Progress Notes Filed: 11/05/2021 1:35 PM Note Text: Medicare Yearly Visit Medical B eligibilty date age 65 Date of last exam none in the past year PAST MEDICAL HISTORY Diagnosis Date Anemia, unspecified BORDERLINE BENIGN HYPERTENSION 12/15/2006 Esophageal reflux External hemorrhoids without mention of complication Mental disorder anxiety PAST SURGICAL HISTORY Procedure Laterality Date ARTHROSCOPY KNEE DIAGNOSTIC W/WO SYNOVIAL BX SPX 1995 ACL REPAIR COLONOSCOPY FLX DX W/COLLJ SPEC WHEN PFRMD 12/13/06 COLONOSCOPY FLX DX W/COLLJ SPEC WHEN PFRMD 12/13/2016 repeat 10 years OOPHORECTOMY PARTIAL/TOTAL UNI/BI OPEN REPAIR OF ROTATOR CUFF ACUTE LEFT Rotator cuff repair OPEN REPAIR OF ROTATOR CUFF ACUTE 10/30 RIGHT Rotator cuff repair PAST SURGICAL HISTORY OF gui hand surgeries SALPINGECTOMY ALLERGIES: Darvocet A500 [Propoxyphene N-Acetaminophen], Erythromycin, Motrin [Ibuprofen], Penicillins, Vicodin [Hydrocodone-Acetaminophen], and Zithromax [Azithromycin] Medications reviewed: Yes FAMILY HISTORY Problem Relation Age of Onset Psychiatry Mother DEMENTIA Alzheimer's Disease Mother COPD Father Heart Father Heart Brother SOCIAL HISTORY: Social History Tobacco Use Smoking status: Never Smokeless tobacco: Never Substance Use Topics Alcohol use: No Drug use: No Aj does regular aerobic exercise. She watches her diet for sodium, low fat and low cholesterol most of the time. She is trying to loose weight, around 5 pounds of it. She works out an hour and a half every day. List of current specialists seen: None in the past year- she has an eye doctor- going to [place] for 3 weeks. End of Live Planning discussed including patients advanced directive wishes: Yes I am willing to follow Aj's advanced directives. PHQ-2 / Depression screen She in the past two weeks denies having felt down, depressed, hopeless, or with little interest or pleasure in doing things. Functional Ability/Safety Screen 1. Was the patient's timed Up and Go test unsteady or longer than 30 seconds? No 2. Does the patient need help with the phone, transportation, shopping,preparing meals, housework, laundry, medications or managing money? No 3. Does your home have rugs in the hallway, lack of grab bars in the bathroom, lack of handrails on the stairs or have poor lighting? No Hearing Evaluation: within normal limits and normal PHYSICAL EXAM BP 138/72 Pulse 72 Resp 16 Ht 157 cm (5' 1.81) Wt 59 kg (130 lb) BMI 23.92 kg/m? Alert and oriented X 3: YES Body mass index is 23.92 kg/m?. ASSESSMENT/PLAN: 75 year old female The following prevention plan was discussed during the office visit and provided to the patient: - Lipid panel - Glaucoma screening Zoë Hernandez MD Patient has white coat syndrome, her blood pressures is high today but at home she is around 127 systolic, Diastolic is any in the range of 72 [facility] 11-05-2021 Miscellaneous Notes Addressed in another visit documented in this encounter [facility] 11-05-2021 History of Present illness Narrative Medicare Yearly Visit Medical B eligibilty date age 65 Date of last exam none in the past year PAST MEDICAL HISTORY Diagnosis Date Anemia, unspecified BORDERLINE BENIGN HYPERTENSION 12/15/2006 Esophageal reflux External hemorrhoids without mention of complication Mental disorder anxiety PAST SURGICAL HISTORY Procedure Laterality Date ARTHROSCOPY KNEE DIAGNOSTIC W/WO SYNOVIAL BX SPX 1995 ACL REPAIR COLONOSCOPY FLX DX W/COLLJ SPEC WHEN PFRMD 12/13/06 COLONOSCOPY FLX DX W/COLLJ SPEC WHEN PFRMD 12/13/2016 repeat 10 years OOPHORECTOMY PARTIAL/TOTAL UNI/BI OPEN REPAIR OF ROTATOR CUFF ACUTE 110/01 LEFT Rotator cuff repair OPEN REPAIR OF ROTATOR CUFF ACUTE 09 RIGHT Rotator cuff repair PAST SURGICAL HISTORY OF gui hand surgeries SALPINGECTOMY ALLERGIES: Darvocet A500 [Propoxyphene N-Acetaminophen], Erythromycin, Motrin [Ibuprofen], Penicillins, Vicodin [Hydrocodone-Acetaminophen], and Zithromax [Azithromycin] Medications reviewed: Yes FAMILY HISTORY Problem Relation Age of Onset Psychiatry Mother DEMENTIA Alzheimer's Disease Mother COPD Father Heart Father Heart Brother SOCIAL HISTORY: Social History Tobacco Use Smoking status: Never Smokeless tobacco: Never Substance Use Topics Alcohol use: No Drug use: No Aj does regular aerobic exercise. She watches her diet for sodium, low fat and low cholesterol most of the time. She is trying to loose weight, around 5 pounds of it. She works out an hour and a half every day. List of current specialists seen: None in the past year- she has an eye doctor- going to [place] for 3 weeks. End of Live Planning discussed including patients advanced directive wishes: Yes I am willing to follow Aj's advanced directives. PHQ-2 / Depression screen She in the past two weeks denies having felt down, depressed, hopeless, or with little interest or pleasure in doing things. Functional Ability/Safety Screen 1. Was the patient's timed Up and Go test unsteady or longer than 30 seconds? No 2. Does the patient need help with the phone, transportation, shopping,preparing meals, housework, laundry, medications or managing money? No 3. Does your home have rugs in the hallway, lack of grab bars in the bathroom, lack of handrails on the stairs or have poor lighting? No Hearing Evaluation: within normal limits and normal PHYSICAL EXAM BP 138/72 Pulse 72 Resp 16 Ht 157 cm (5' 1.81) Wt 59 kg (130 lb) BMI 23.92 kg/m Alert and oriented X 3: YES Body mass index is 23.92 kg/m . ASSESSMENT/PLAN: 75 year old female The following prevention plan was discussed during the office visit and provided to the patient: - Lipid panel - Glaucoma screening Zoë Hernandez MD Patient has white coat syndrome, her blood pressures is high today but at home she is around 127 systolic, Diastolic is any in the range of 72 documented in this encounter [facility] 10-20-2021 Note Patient Outreach (IN [facility]) AJ AREVALO ([id number]) 1945 F Date Time Provider Department 10/20/21 ZOË HERNANDEZ During your visit today, we recorded the following information about you: Allergies As of Date: 10/20/2021 Noted Allergy Reaction DARVOCET A500 (PROPOXYPHENE N-TERRY*08/11/2005 ERYTHROMYCIN 10/26/2004 4 - Hives MOTRIN (IBUPROFEN) 10/26/2004 Comments: RINGING IN EARS PENICILLINS 10/26/2004 VICODIN (HYDROCODONE-ACETAMINOPHE*09/20/19 07 ZITHROMAX (AZITHROMYCIN) 10/26/2004 Date Reviewed: 11/04/2020 Reviewed by: Prabhakar Eason APRN.SHIPPER RECEIVER - Fully Assessed Visit Diagnoses:Essential hypertension, benign [I10] Medication management [Z79.899] Order(s):BASIC METABOLIC PNL [SQBMP] Order #: [id number] FUTURE CBC [SQCBC] Order #: [id number] FUTURE SCHEDULE LAB TESTING [[id number]] Order #: [id number] FUTURE Prescriptions as of 10/23/2021 - lisinopril (ZESTRIL, PRINIVIL) 10 mg tablet Take 1 tablet by mouth once daily. - hydroCHLOROthiazide (HYDRODIURIL, ESIDRIX) 12.5 mg tablet Take 1 tablet by mouth once daily. - psyllium (METAMUCIL) 3.4 gram packet Take 1 Packet by mouth twice daily. - COMPOUNDED PRESCRIPTION Glucosamine, chondroitin/MSM liquid - 1 tablespoonful daily - POTASSIUM GLUCONATE 595 MG (99 MG) TAB Take one(1) tablet two(2) times daily. - calcium carbonate/vitamin d3(CALCIUM 600 WITH VITAMIN D3 600 MG (1,500)-200 UNIT TAB) Take one(1) tablet twice daily. - ubidecarenone/vit e acetate(CO Q-10 100 MG-5 UNIT CAP) Take one(1) tablet two(2) times daily. - CHROMIUM PICOLINATE 200 MCG CAP Take one(1) tablet daily. - Aspirin 81 mg ORAL Tab Take one(1) tablet daily. - Ginkgo Biloba (GINKGO) 60 mg ORAL Tab Take one(1) tablet daily. - calcium polycarbophil (FIBERCON) 625 mg ORAL Tab Take one(1) tablet two(2) times daily. - Lactobacillus Acidoph-Pectin (ACIDOPHILUS) ORAL Cap - MULTI-VITAMIN ORAL TAB Meds Comments as of 10/18/2018: Cranberry tablets added Red Yeast Rice Problem List As Of Date 10/20/2021 Noted Resolved ANEMIA NOS [D64.9] 10/11/2014 Esophageal reflux [K21.9] 10/17/2017 Dermatophytosis of nail [B35.1] 09/19/2006 10/17/2017 BENIGN HYPERTENSION [I10] 12/15/2006 Osteopenia of multiple sites [M85.89] 09/28/2007 Hyperlipidemia LDL goal <130 [E78.5] 10/15/2015 Encounter Status:Closed by NEEL KAUR on 10/23/21 [facility] 05-20-2021 History of Present illness Narrative POPULATION HEALTH NAVIGATION OUTREACH Action/FYI: [employer] Care Gaps Discuss/Due: Advance Directives, Medicare Wellness Outcome: Patient scheduled for Medicare Wellness 11/05/21 Patient requesting new screening mammogram order faxed to [facility] at [phone]. States she would like to be scheduled 10/21/21 and current order expires 10/10/21. Thank you! Pt identified by name and : YES, via phone Outreach Outcome/Action Spoke to patient or caregiver: Patient scheduled Reason for Outreach Care Gap or Scheduling/Wellness visits Payer: Payor: [employer] MEDICARE / Plan: [employer] MEDICARE PPO / Product Type: PPO / Care Gap Reviewed:: Annual Wellness visit Reminder: Reminder note to check Health Maintenance for items below Health Maintenance items due: COVID-19 VACCINE(3 - Booster for Pfizer series) due on 10/05/2020 ADVANCE DIRECTIVE DISCUSSION Never done Message Sent to Practice: Yes Navigation Signature: Stefania Colon Population Health Navigator May 20, 2021 3:53 PM documented in this encounter [facility] 05-20-2021 Note Patient Outreach (NE TNAV) AJ AREVALO ([id number]) 1945 F Date Time Provider Department 05/20/21 STEFANIA COLON ([facility]) NETNAV During your visit today, we recorded the following information about you: Zoë Hernandez MD 06/22/2021 3:00 AM Signed POPULATION HEALTH NAVIGATION OUTREACH Action/FYI: [employer] Care Gaps Discuss/Due: Advance Directives, Medicare Wellness Outcome: Patient scheduled for Medicare Wellness 11/05/21 - Patient requesting new screening mammogram order faxed to [facility] at [phone]. States she would like to be scheduled 10/21/21 and current order expires 10/10/21. Thank you! Pt identified by name and : YES, via phone Outreach Outcome/Action Spoke to patient or caregiver: Patient scheduled Reason for Outreach Care Gap or Scheduling/Wellness visits Payer: Payor: [employer] MEDICARE / Plan: [employer] MEDICARE PPO / Product Type: PPO / Care Gap Reviewed:: Annual Wellness visit Reminder: Reminder note to check Health Maintenance for items below Health Maintenance items due: COVID-19 VACCINE(3 - Booster for Pfizer series) due on 10/05/2020 ADVANCE DIRECTIVE DISCUSSION Never done Message Sent to Practice: Yes Navigation Signature: Stefania Colon Population Health Navigator May 20, 2021 3:53 PM Allergies As of Date: 05/20/2021 Noted Allergy Reaction DARVOCET A500 (PROPOXYPHENE N-TERRY*08/11/2005 ERYTHROMYCIN 10/26/2004 4 - Hives MOTRIN (IBUPROFEN) 10/26/2004 Comments: RINGING IN EARS PENICILLINS 10/26/2004 VICODIN (HYDROCODONE-ACETAMINOPHE*09/20/19 07 ZITHROMAX (AZITHROMYCIN) 10/26/2004 Date Reviewed: 11/04/2020 Reviewed by: Prabhakar Eason APRN.SHIPPER RECEIVER - Fully Assessed Reason for Visit: Population Health Navigation Outreach [3910] Cmt: Aegiancarlo Care Gaps Primary Visit Diagnosis:Breast cancer screening by mammogram [Z12.31] Order(s):ALTHEA SCREENING [[id number]] Order #: [id number] FUTURE Prescriptions as of 06/22/2021 - lisinopril (ZESTRIL, PRINIVIL) 10 mg tablet Take 1 tablet by mouth once daily. - hydroCHLOROthiazide (HYDRODIURIL, ESIDRIX) 12.5 mg tablet Take 1 tablet by mouth once daily. - psyllium (METAMUCIL) 3.4 gram packet Take 1 Packet by mouth twice daily. - COMPOUNDED PRESCRIPTION Glucosamine, chondroitin/MSM liquid - 1 tablespoonful daily - POTASSIUM GLUCONATE 595 MG (99 MG) TAB Take one(1) tablet two(2) times daily. - calcium carbonate/vitamin d3(CALCIUM 600 WITH VITAMIN D3 600 MG (1,500)-200 UNIT TAB) Take one(1) tablet twice daily. - ubidecarenone/vit e acetate(CO Q-10 100 MG-5 UNIT CAP) Take one(1) tablet two(2) times daily. - CHROMIUM PICOLINATE 200 MCG CAP Take one(1) tablet daily. - Aspirin 81 mg ORAL Tab Take one(1) tablet daily. - Ginkgo Biloba (GINKGO) 60 mg ORAL Tab Take one(1) tablet daily. - calcium polycarbophil (FIBERCON) 625 mg ORAL Tab Take one(1) tablet two(2) times daily. - Lactobacillus Acidoph-Pectin (ACIDOPHILUS) ORAL Cap - MULTI-VITAMIN ORAL TAB Meds Comments as of 10/18/2018: Cranberry tablets added Red Yeast Rice Problem List As Of Date 05/20/2021 Noted Resolved ANEMIA NOS [D64.9] 10/11/2014 Esophageal reflux [K21.9] 10/17/2017 Dermatophytosis of nail [B35.1] 09/19/2006 10/17/2017 BENIGN HYPERTENSION [I10] 12/15/2006 Osteopenia of multiple sites [M85.89] 09/28/2007 Hyperlipidemia LDL goal <130 [E78.5] 10/15/2015 Encounter Status:Closed by VINCENT PRODUSER on 06/22/21 [facility] 09-19-2006 History of Past i llness Narrative Problem Noted Date Resolved Date Dermatophytosis of nail 09/19/2006 10/18/19 18 ANEMIA NOS 10/11/2014 Esophageal reflux 10/17/2017 documented as of this encounter (statuses as of 06/22/2021) [facility] History of Past illness Narrative* Problem Noted Date Resolved Date Dermatophytosis of nail 09/19/2006 10/18/19 18 ANEMIA NOS 10/11/2014 Esophageal reflux 10/17/2017 documented as of this encounter (statuses as of 10/23/2021) [facility] History of Past illness Narrative* Problem Noted Date Resolved Date Dermatophytosis of nail 09/19/2006 10/18/19 18 ANEMIA NOS 10/11/2014 Esophageal reflux 10/17/2017 documented as of this encounter (statuses as of 11/05/2021) [facility] History of Past illness Narrative* Problem Noted Date Resolved Date Dermatophytosis of nail 09/19/2006 10/18/19 18 ANEMIA NOS 10/11/2014 Esophageal reflux 10/17/2017 documented as of this encounter (statuses as of 11/05/2021) [facility] [place] [facility] Diagnosis Breast cancer screening by mammogram- Primary documented in this encounter [facility] note* Diagnosis Essential hypertension, benign Medication management Encounter for long-term (current) use of other medications documented in this encounter [facility] note* Diagnosis Onset Date Resolution Status Encounter for routine gynecological examination noneactive [facility] Work Phone: Evaluation note* Diagnosis Medicare annual wellness visit, subsequent- Primary Routine general medical examination at a health care facility Essential hypertension, benign documented in this encounter [facility] note* Diagnosis Onset Date Resolution Status Encounter for routine gynecological examination noneactive Health care maintenance acut e Hyperlipidemia chronic Hypertension chronic Osteopenia chronic [facility] Work Phone: Reason for referral (narrative)* Diagnostic Procedure Only (Routine) - Pending Review Specialty Diagnoses / Procedures Referred By Karol t Referred To Contact [facility] Diagnoses Breast cancer screening by mammogram Procedures ALTHEA SCREENING SCREENING MAMMOGRAPHY BI 2-VIEW BREAST INC CAD Zoë Hernandez MD [address] [place] [address] [facility] [address] [place] [address] Referral ID Status Reason Start Date Expiration Date Visits Requested Visits Authorized [id number] Pending Review Auto-Generat ed Referral 05/20/2021 06/19/2022 1 1 [facility] Advance Directives No Advanced Directives Records FoundDocuments on File Type Date Recorded Patient General Operator Expl anation Advance Directive(s) 12/13/2016 10:01 AM Advance Directive(s) 11/17/2016 1:57 PM Chief Complaint and Reason for Visit Chief Complaint SCREENING Annual (JOURNEYMAN GLAZIER) Reason for Visit Encounter for routin e gynecological examination Chief Complaint Amb Documentation SCREENING Annual (JOURNEYMAN GLAZIER) CHASER HELPER, EST. CARE, [facility] PT, CC CONSENT POST MENOPAUSAL Reason for Visit Encounter for routin e gynecological examination Health care maintenance Hyperlipidemia Hypertension Osteopenia Chief Complaint SCREENING Annual (JOURNEYMAN GLAZIER) CHASER HELPER, EST. CARE, [facility] PT, CC CONSENT POST MENOPAUSAL E-ORDER Reason for Visit Encounter for routin e gynecological examination Health care maintenance Hyperlipidemia Hypertension Osteopenia Family History No Family History Records Found Relationship Condition Age at Onset Recorded Date/T annabel brother Seizure Unknown Hypertension Unknown Myocardial infarction Unknown father Myocardial infarction Unknown aunt Malignant neoplasm of breast Unknown Relationship Condition Age at Onset Recorded Date/T annabel brother Seizure Unknown Hypertension Unknown Myocardial infarction Unknown Hypercholesterolemia Unknown father Myocardial infarction Unknown Asthma Unknown Angina at rest Unknown aunt Malignant neoplasm of breast Unknown sister Asthma Unknown Summary Purpose Additional Source Comments Source Comments (unrecognize d section and content) In the event this informatio n is protected by the Federal Confidentiality of Alcohol and Drug Abuse Patient Records regulations: The Federal rules restrict any use of the information to criminally investigate or prosecute any alcohol or drug abuse patient[facility] event this information is protected by the Federal Confidentiality of Alcohol and Drug Abuse Patient Records regulations: The Federal rules restrict any use of the information to criminally investigate or prosecute any alcohol or drug abuse patient.[facility] event this information is protected by the Federal Confidentiality of Alcohol and Drug Abuse Patient Records regulations: The Federal rules restrict any use of the information to criminally investigate or prosecute any alcohol or drug abuse patient.[facility] event this information is protected by the Federal Confidentiality of Alcohol and Drug Abuse Patient Records regulations: The Federal rules restrict any use of the information to criminally investigate or prosecute any alcohol or drug abuse patient.[facility] Reason for Visit (unrecogniz ed section and content) Reason Onset Date Comments Population Health Navigation Outreach 05/20/2021 [employer] Care Gaps Reason Comments Medicare Wellness Exam Care Teams (unrecognized sec tion and content) Salesperson [employer] Relationship Specialty Start Date End Date Zoë Hernandez MD [address] [place] [id number] PCP - General Internal Medicine 11/04/20 Salesperson [employer] Relationship Specialty Start Date End Date Zoë Hernandez MD [address] [place] [id number] PCP - General Internal Medicine 11/04/20 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 Madhu Quinones III, MD Family Provider Active Dr. Zoë Hernandez MD Primary Care Provider Active Team Status: Inactive Member Role Status Dates Dr. Zoë Hernandez MD Primary Care Provider, Referring Provider Active Dr. Joslyn Stanton DO Attending Provider Activ e Team Status: Inactive Member Role Status Dates Dr. Zoë Hernandez MD Primary Care Provider, Referring Provider Active Dr. Kym Del Rosario MD Attending Provider Active Team Status: Active Member Role Status Dates Dr. Zoë Hernandez MD Primary Care Provider Active Leena Grande Attending Provider Active Team Status: Inactive Member Role Status Dates Dr. Zoë Hernandez MD Primary Care Provider Active Dr. Joslyn Stanton DO Attending Provider, Refe rring Provider Active Team Status: Inactive Member Role Status Dates Dr. Zoë Hernandez MD Primary Care Provider Active Dr. Kym Del Rosario MD Attending Provider, Referrin g Provider Active Goals (unrecognized section and content) Goals may be documented in a n alternate sectionGoals may be documented in an alternate sectionGoals may be documented in an alternate section INFORMATION SOURCE (unrecogn ized section and content) DATE CREATED AUTHOR 11/06/2021 [facility] DATE CREATED AUTHOR AUTHOR'S ORGANIZ ATION 10/23/2024 [facility] FOR RECORDS PERTAINING TO PATIENTS WHO ARE OR HAVE BEEN ENROLLED IN A CHEMICAL DEPENDENCY/SUBSTANCEABUSE PROGRAM, SOME INFORMATION MAY BE OMITTED. This clinical summary was aggregated from multiple sources. Caution should be exercised in using it in the provision of clinical care. This summary normalizes information from multiple sources, and as a consequence, information in this document may materially change the coding, format and clinical context of patient data. In addition, data may be omitted in some cases. CLINICAL DECISIONS SHOULD BE BASED ON THE PRIMARY CLINICAL RECORDS. [employer] provides no warranty or guarantee of the accuracy or completeness of information in this document.
--- NOTE | 2024-10-24 07:15 | BI_ITS ---
EXAM: SCRN MAMM (CAD)W/HAROON BILAT DATE: 10/24/2024 CLINICAL HISTORY: F, Age 78 y/o , SCREEN FOR BREAST CANCER Aunt with breast cancer. TECHNIQUE: SCRN MAMM (CAD)W/HAROON BILAT COMPARISON: Prior exam(s) dated October 24, 2023.. FINDINGS: TISSUE DENSITY: The breasts are heterogeneously dense, which may obscure small masses. Bilateral Breast Mammographic Findings: No significant masses, calcifications or other abnormalities are identified. Small benign-appearing bilateral axillary lymph nodes. No suspicious masses, areas of developing architectural distortion, or suspicious calcifications. There has been no significant interval change. BI/SCRN MAMM (CAD)W/HAROON BILAT IMPRESSION: Stable examination. OVERALL FINAL ASSESSMENT BI-RADS 2: BENIGN RECOMMENDATION: Routine annual follow-up in 1 Year A letter with findings and recommendations will be mailed to the patient. Reading Location: [id number]
== END | disposition home or self-care (01) ==
LOC: OPBI 07:03
PROVIDERS: PCP Internal Medicine; Referring Provider Obstetrics & Gynecology; Visit Provider Obstetrics & Gynecology
DX: Z12.31 Encounter for screening mammogram for malignant neoplasm of breast (principal)
CPT/HCPCS: 77063; 77067

== ENCOUNTER → 2024-11-12 | Outpatient (CLI) | payer MEDICARE, SELFPAY ==
--- OUTSIDE RECORDS SUMMARY | 2024-11-12 09:06 | XMS RPT_ITS | CCD ---
Author Organization [facility]ini[facility] Care Team Providers Care Is Analyst Name Role Phone Flory LEIGH, Yadi Primary Care Provider Dr. Yadi Hernandez Primary Care Provider Dr. Yadi Hernandez Referring Provider Dr. Joslyn Stanton Attending Provider [phone]) Yadi Hernandez MD Primary Care Provider Dr. Yadi Hernandez Primary Care Provider Leena Grande Attending Provider Unavailable Dr. Yadi Hernandez Referring Provider Dr. Joslyn Stanton Attending Provider 1([phone]) Dr. Kym Del Rosario Attending Provider [phone] Dr. Yadi Hernandez Primary Care Provider Dr. Yadi Hernandez Referring Provider Dr. Joslyn Stanton Attending Provider 1([phone]) Dr. Kym Del Rosario Attending Provider [phone] Dr. Joslyn Stanton DO Attending Provider Dr. Joslyn Stanton DO Referring Provider Dr. Kym Del Rosario MD Primary Care Provider Kym Del Rosario Attending Unavailable Yadi Hernandez Primary Care Unavailable Flory, Yadi Referring Unavailable Kem Aceves Attending Unavailable Yadi Hernandez Primary Care Unavailable Yadi Hernandez Referring Unavailable Flory, Yadi Primary Care Unavailable Yadi Hernandez Referring Unavailable Joslyn Stanton Attending Unavailabl e Kishore Del Rosariobe Attending Unavailable Oleghe, Efewongbe Referring Unavailable GantaJosera Primary Care Unavailable KristyeSincereewongbe Attending Unavailable Oleghe, Efewongbe Referring Unavailable Ganta, Yadi Primary Care Unavailable Joslyn Stanton Referring Unavailabl e Rasheedghe, Efewongbe Primary Care Unavailable Joslyn Stanton Attending Oleg Hernandez MD, Dr. Camp Referring Provider [phone] Miguel Ángel LEIGH, Dr. Mejía Attending Provider Miguel Ángel LEIGH, Dr. Mejía Referring Provider [phone] Allergies Allergy Classification Reported Allergen(s) Allergy Type Date of Onset Reaction(s) Facility (4 sources) Acetaminophen / HYDROcodone Drug Allergy 7 [facility] Work Phone: [phone] (4 sources) Azithromycin Drug Allergy 5 [facility] Work Phone: [phone] (8 sources) Erythromycin Drug Allergy 5 Hives [facility] Work Phone: [phone] Comment on above: Vomiting within 45 m inutes (9 sources) Ibuprofen Drug Allergy 5 Vomiting [facility] Work Phone: [phone] (1 source) Penicillins Propensity to adverse reactions 5 [facility] Work Phone: [phone] (4 sources) Propoxyphene N-Acetaminophen Propensity to adverse reactions 6 [facility] Work Phone: (3 sources) Penicillins Propensity to adverse reactions 5 [facility] Work Phone: (5 sources) Acetaminophen Drug Allergy 1 Other [facility] (5 sources) oxyCODONE Drug Allergy 1 Other [facility] (5 sources) Penicillins Allergy to substance 1 Rash [facility] (5 sources) Propoxyphene Drug Allergy 1 Other [facility] (4 sources) HYDROcodone Drug Allergy 3 Nausea/Vom/Soledad rrhea [facility] (1 source) Acetaminophen Drug Allergy 4 [facility] Rep[facility] (1 source) Erythromycin Drug Allergy 4 [facility] (1 source) HYDROcodone Drug Allergy 4 [facility] (1 source) Ibuprofen Drug Allergy 4 [facility] (1 source) oxyCODONE Drug Allergy 4 [facility] (1 source) Penicillins Drug allergy (disorder) 4 [facility] (1 source) Propoxyphene Drug Allergy 4 [facility] (1 source) Doxycycline Drug Allergy 5 Rash [facility] Medications Current Medications Medication Drug Class(es) Dates Sig (Normalized) Sig (Original) aspirin 81 mg delayed release oral tablet (14 sources) Platelet Aggregation Inhibitor, Nonsteroidal Anti-inflammatory Drug Start: 10-21-2021 take 1 tablet by mouth two times weekly Aspirin 81 mg tablet,delayed release (DR/EC) Active 81 mg PO .twice a week October 21, 2021 8:07am Start: 10-01-2020 End: 10-21-2021 take 1 tablet by mouth once daily Aspirin 81 mg tablet,delayed release (DR/EC) Discontinued 81 mg PO DAILY October 01, 2020 12:00am October 21, 2021 8:08am Start: 10-11-2006 take 1 tablet by sim [...] week calcium carbonate 1500 mg oral tablet (4 sources) Start: 06-08-19 23 take 1 tablet by mouth once daily Calcium Carbonate (Calcium 600) 600 mg calcium (1,500 mg) tablet Active 600 mg PO DAILY June 07, 2022 12:00am cholecalciferol 0.05 mg oral capsule (4 sources) Vitamin D Start: 06-08-19 23 take 1 capsule by mouth once daily Cholecalciferol (Vitamin D3) 50 mcg (2,000 unit) capsule Active 50 ug PO DAILY June 07, 2022 12:00am Fiber Force (4 sources) Start: 06-08-19 Fiber Force Active PO DAILY June 06, 2022 11:00pm Start: 06-07-2022 Fiber Force Ac tive PO DAILY June 07, 2022 12:00am lactobacillus acidophilus 10 mg oral tablet (9 sources) Start: 10-01-2020 take 1 capsule by mouth once daily Lactobacillus Acidophilus (Acidophilus) capsule Active 10 mg PO DAILY October 01, 2020 12:00am Start: 09-19-2006 Lactobacillus Acidoph-Pectin (ACIDOPHILUS) ORAL Cap Magnesium (5 sources) Start: 10-01-2020 take 1 tablet by sim th once daily Magnesium 250 mg tablet Active 250 mg PO DAILY October 01, 2020 12:00am Start: 10-01-2020 take 250 mg by mouth once elza y Magnesium Active 250 MG PO DAILY September [...] TABLET PO DAILY October 21, 2021 12:00am Multivitamin tablet (2 sources) Start: 10-21-2021 Multivitamin t ablet Active 1 {tbl} PO DAILY October 21, 2021 12:00am potassium gluconate 2.5 meq oral tablet (9 sources) Start: 10-01-2020 take 1 tablet by mouth once daily Potassium Gluconate 2.5 mEq tablet Active 2.5 meq PO DAILY October 01, 2020 12:00am Start: 09-18-2008 POTASSIUM GLUC LUCA 595 MG (99 MG) TAB Take one(1) tablet two(2) times daily. 0 09/18/2008 Active Comment on above: Take one(1) tablet t wo(2) times daily. ubidecarenone 100 mg oral capsule (9 sources) Start: 06-07-2022 Coenzyme Q10 (Coq-10) 100 mg capsule Active 100 mg PO DAILY June 07, 2022 4:16pm Start: 10-01-2020 End: 06-07-2022 Coenzyme Q10 (Coq-10) 100 mg capsule Discontinued 100 mg PO TWICE A DAY October 01, 2020 12:00am June 07, 2022 4:20pm Vitamin B Complex (B Complex-Vitamin B12) tablet (5 sources) Start: 10-01-2020 Vitamin B Comp joanne (B Complex-Vitamin B12) tablet Active 1 {tbl} PO DAILY October 01, 2020 12:00am Start: 10-01-2020 take 1 tablet by sim th once daily Vitamin B Complex (B Complex-Vitamin B12) tablet Active 1 TABLET PO DAILY September 30, 2020 11:00pm Start: 10-01-2020 take 1 tablet by sim th once daily Vitamin B Complex (B Complex-Vitamin B12) tablet Active 1 TABLET PO DAILY October 01, 2020 12:00am Completed/Discontinued Medications Medication Drug Class(es) Dates Sig (Normalized) Sig (Original) amoxicillin 875 mg / clavulanate 125 mg oral tablet (2 sources) Penicillin-class Antibacterial Start: 01-24-2024 End: 11-12-2024 Amoxicillin-Pot Clavulanate 875-125 mg tablet Discontinued 1 {tbl} PO TWICE A DAY January 24, 2024 1:00am November 12, 2024 7:50am calcium carbonate 1500 mg / cholecalciferol 200 [...] chondro itin/MSM liquid - 1 tablespoonful daily Ginkgo Biloba (18 sources) Start: 06-07-2022 End: 11-11-2023 take 1 tablet by mouth once daily Ginkgo Biloba 40 mg tablet Discontinued 40 mg PO DAILY June 07, 2022 12:00am November 11, 2023 7:54am give with meal/snack Start: 06-07-2022 take 40 mg by mouth once daily Ginkgo Biloba Active 40 MG PO DAILY June 06, 2022 11:00pm give with meal/snack Start: 06-07-2022 take 40 mg by mouth once daily Ginkgo Biloba Active 40 MG PO DAILY June 07, 2022 12:00am give with meal/snack Start: 10-21-2021 End: 11-07-2023 take 1 capsule by mouth once Ginkgo Biloba 60 mg capsu le Discontinued 60 mg PO ONCE October 21, 2021 8:07am November 07, 2023 8:39am give with meal/snack Start: 10-21-2021 take 60 mg by mouth once Ginkg o Biloba Active 60 MG PO ONCE October 21, 2021 7:07am give with meal/snack Start: 10-21-2021 take 60 mg by mouth once Ginkg o Biloba Active 60 MG PO ONCE October 21, 2021 8:07am give with meal/snack Start: 10-01-2020 End: 10-21-2021 take 1 capsule by mouth twice daily Ginkgo Biloba 60 mg capsule Discontinued 60 mg PO TWICE A DAY October 01, 2020 12:00am October 21, 2021 8:08am give with meal/snack Start: 10-01-2020 End: 10-21-2021 [...] d aily. hydroCHLOROthiazide 12.5 mg oral capsule (19 sources) Thiazide Diuretic Start: 021 End: 022 take 1 tablet by mouth once daily hydroCHLOROthiazide (HYDRODIURIL, ESIDRIX) 12.5 mg tablet Indications: Essential hypertension, benign Take 1 tablet by mouth once daily. 90 tablet 3 11/05/2021 Active Start: 10-01-2020 End: 10-15-2024 take 1 capsule by mouth once daily Hydrochlorothiazide 12.5 mg capsule Discontinued 12.5 mg PO DAILY November 25, 2023 1:58pm October 15, 2024 7:59pm Comment on above: Take 1 tablet by sim th once daily. lisinopril 10 mg oral tablet (20 sources) Angiotensin Converting Enzyme Inhibitor Start: End: take 1 tablet by mouth once daily Lisinopril 10 mg tablet Discontinued 10 mg PO DAILY November 25, 2023 1:58pm October 15, 2024 7:59pm Start: 06-07-2022 End: 11-10-2022 take 2 tablets by mouth once daily Lisinopril 5 mg tablet Discontinued 10 mg PO DAILY November 10, 2022 9:20am November 10, 2022 9:41am Start: 06-07-2022 End: 11-10-2022 take 10 mg by mouth once daily Lisinopril Discontinued 10 MG PO DAILY November 10, 2022 8:20am November 10, 2022 8:41am Start: 11-04-2020 End: 11-05-2021 take 1 tablet by mouth once daily lisinopril (ZESTRIL, PRINIVIL) 10 mg tablet Indications: Essential hypertension, benign Take 1 tablet by mouth once daily. 90 tablet 3 11/05/2021 Active Start: 10-01-2020 End: 06-07-2022 take 1 tablet by mouth once daily Lisinopril 5 mg tablet Discontinued 5 mg PO DAILY October 01, 2020 12:00am June 07, 2022 4:20pm Comment on above: Take 1 tablet by sim once daily. MULTI-VITAMIN ORAL TAB (4 sources) Start: MULTI-VITAMIN ORAL TAB ondansetron 4 mg oral tablet (10 sources) Serotonin-3 Receptor Antagonist Start: End: take 1 tablet by mouth every eight hours Ondansetron Hcl (Zofran) 4 mg tablet Discontinued 4 mg PO Q8H October 01, 2020 12:00am October 15, 2020 8:59am Start: 09-29-2020 End: 10-01-2020 take 1 tablet by mouth every six hours as needed for nausea and vomiting Ondansetron Hcl (Zofran) 4 mg tablet Discontinued 4 mg PO EVERY 6 HOURS as needed for nausea and vomiting 14 0 September 29, 2020 12:00am October 01, 2020 2:18pm psyllium 3400 mg powder for oral suspension (4 sources) Start: 10-15-2015 take 1 dose by mouth twice daily psyllium (METAMUCIL) 3.4 gram packet Take 1 Packet by mouth twice daily. 0 10/15/2015 Active Comment on above: Take 1 Packet by [facility] twice daily. traMADol hydrochloride 50 mg oral tablet (5 sources) Opioid Agonist Start: 09-29-2020 End: 10-15-2020 take 1 tablet by mouth every six hours as needed for pain Tramadol 50 mg tablet Discontinued 50 mg PO EVERY 6 HOURS as needed for pain 10 3 0 September 29, 2020 12:00am October 15, 2020 8:59am Closed dislocation of left shoulder Unspecified dislocation of left shoulder joint, initial encounter ubidecarenone 100 mg / vitamin e 5 unt oral capsule (4 sources) Start: 02-17-2007 ubidecarenone/ vit e acetate(CO Q-10 100 MG-5 UNIT CAP) Take one(1) tablet two(2) times daily. 0 02/17/2007 Active Comment on above: Take one(1) tablet t wo(2) times daily. Problems Active Problems Problem Classification Problem Date Documented Da te Episodic/Chronic Allergic reactions (8 sources) Urticaria; Translations: [Urticaria, unspecified] 06-03-2022 Episodic Disorders of lipid metabolism (11 sources) Hyperlipidemia; Translations: [Hyperlipidemia, unspecified] Onset: 10-15-2015 10-15-2015 Chronic E Codes: Fall (5 sources) Fall on same level from slipping; Translations: [Fall on same level from slipping, tripping and stumbling without subsequent striking against object, initial encounter] 09-29-2020 Episodic Essential hypertension (13 sources) Benign essential hypertension; Translations: [Essential (primary) hypertension] Onset: 12-15-2006 12-15-2006 Chronic Joint disorders and dislocations; trauma-related (5 sources) Dislocation of shoulder joint; Translations: [Unspecified dislocation of left shoulder joint, initial encounter] 09-29-2020 Episodic Other bone disease and musculoskeletal deformities (8 sources) Osteopenia; Translations: [Other specified disorders of bone density and structure, multiple sites] Onset: 09-28-2007 10-17-2017 Episodic Other screening for suspected conditions (not mental disorders or infectious disease) (3 sources) Patient encounter status; Translations: [Encounter for screening mammogram for malignant neoplasm of breast] Onset: 10-30-2024 Episodic Superficial injury; contusion (10 sources) Contusion of elbow; Translations: [Contusion of left elbow, initial encounter] 09-29-2020 Episodic Past or Other Problems Problem Classification Problem Date Documented Da te Episodic/Chronic Other bone disease and musculoskeletal deformities (3 sources) Other specified disorders of bone density and structure, unspecified site; Translations: [Disorder of bone and cartilage, unspecified] Onset: 11-11-2023 11-10-2022 Episodic Results Test Name Value Interpretation Reference Range Facility Breast imaging reportOrdered By: Kailash López on 10-24-2024 Study report [facility] Imaging Services [address] [place], [place] [id number] SCRN MAMM (CAD)W/HAROON LARKIN MR#: [id number] Acct: [id number] Name: AJ AREVALO Rep #: [id number] : 1945 F 78 From: Ernesto López MD PCP: Dr. Kym Del Rosario MD Status: R EG CLI Study:SCRN MAMM (CAD)W/HAROON BILAT Date of Exa m: 10/24/24 Exam# [id number] Ordering Dr: Joslyn Serra DO EXAM: SCRN MAMM (CAD)W/HAROON BILAT DATE: 10/24/2024 CLINICAL HISTORY: F, Age 78 y/o , SCREEN FOR BREAST CANCER Aunt with breast cancer. TECHNIQUE: SCRN MAMM (CAD)W/HAROON BILAT COMPARISON: Prior exam(s) dated October 24, 2023.. FINDINGS: TISSUE DENSITY: The breasts are heterogeneously dense, which may obscure small masses. Bilateral Breast Mammographic Findings: No significant masses, calcifications or other abnormalities are identified. Small benign-appearing bilateral axillary lymph nodes. No suspicious masses, areas of developing architectural distortion, or suspicious calcifications. There has been no significant interval change. BI/SCRN MAMM (CAD)W/HAROON BILAT IMPRESSION: Stable examination. OVERALL FINAL ASSESSMENT BI-RADS 2: BENIGN RECOMMENDATION: Routine annual follow-up in 1 Year A letter with findings and recommendations will be mailed to the patient. Reading Location: [id number] CC: Dr. Kym Del Rosario MD; Dr. Joslyn Stanton DO ~ Concrete Tester: Signed [facility] SCRN MAMM (CAD)W/HAROON BILATo n 10-24-2024 SCRN MAMM (CAD)W/HAROON BILAT [facility] Imaging Services [address] [place] [address] SCRN MAMM (CAD)W/HAROON BILAT MR#: [id number] Acct: [id number] Name: AJ AREVALO Rep #: [id number] : 1945 F 78 From: Kailash doran MD PCP: Dr. yKm Del Rosario MD Status: REG CLI Study: SCRN MAMM (CAD)W/HAROON BILAT Date of Exam: 09/29 09/21 Exam# [id number] Ordering Dr: Joslyn Stanton DO EXAM: SCRN MAMM (CAD)W/HAROON BILAT DATE: 10/24/2024 CLINICAL HISTORY: F, Age 78 y/o , SCREEN FOR BREAST CANCER Aunt with breast cancer. TECHNIQUE: SCRN MAMM (CAD)W/HAROON BILAT COMPARISON: Prior exam(s) dated October 24, 2023.. FINDINGS: TISSUE DENSITY: The breasts are heterogeneously dense, which may obscure small masses. Bilateral Breast Mammographic Findings: No significant masses, calcifications or other abnormalities are identified. Small benign-appearing bilateral axillary lymph nodes. No suspicious masses, areas of developing architectural distortion, or suspicious calcifications. There has been no significant interval change. BI/SCRN MAMM (CAD)W/HAROON BILAT IMPRESSION: Stable examination. OVERALL FINAL ASSESSMENT BI-RADS 2: BENIGN RECOMMENDATION: Routine annual follow-up in 1 Year A letter with findings and recommendations will be mailed to the patient. Reading Location: [id number] CC: Dr. Kym Del Rosario MD; Dr. Joslyn Stanton DO Concrete Tester: Signed Normal [facility] Lipid Profileon 06-16-2024 CHOL:HDL 3.58 Normal [facility] Comment on above: Performed By: #### L 500.4100 #### [facility] Laboratory [address] [place], [place], [id number] Cholesterol [Mass/Vol] 220 mg/dL High <=[address] [facility] Comment on above: Result Comment: Chol esterol level, Desirable <200 mg/dL Borderline high cholesterol 200-239 mg/dL High cholesterol >=240 mg/dL Recommendations of the NCEP Adult Treatment Panel for the following risk-cutoff thresholds for the [place] population. Performed By: #### L 500.4100 #### [facility] [address] [place], [place], [id number] Cholesterol in HDL [Mass/Vol] 62 mg/dL Normal [facility] Comment on above: Result Comment: Rosa onal Cholesterol Education Program (NCEP) guidelines: <40 mg/dL: Low HDL-cholesterol (major risk factor for CHD) >= 60 mg/dL: High HDL-cholesterol (negative risk factor for CHD) HDL-cholesterol is affected by a number of factors, e.g. smoking, exercise, hormones, sex and age. Performed By: #### L 500.4100 #### [facility] [address] [place], [address] Cholesterol in LDL [Mass/Vol] 133 mg/dL Normal [facility] Comment on above: Result Comment: Bord hckfir=834-933 mg/dL Higher Xcif=225 mg/dL or greater Performed By: #### L 500.4100 #### [facility] [address] [place], [address] Cholesterol in VLDL [Mass/Vol] 26 mg/dL Normal 5-40 [facility] Comment on above: Performed By: #### L 500.4100 #### [facility] [address] [place], [address] Triglyceride [Mass/Vol] 130 mg/dL Normal [facility] Comment on above: Result Comment: The drugs N-Acetylcysteine and Metamizole may falsely depress this assay. Normal range: <150 mg/dL Borderline High: 150-199 mg/dL High: 200-499 mg/dL Very High: >500 mg/dL Performed By: #### L 500.4100 #### [facility] [address] [place], [address] Urgent Care Visit Reporton 03-25-2023 Urgent Care Visit Report [facility] [address], [address] [place], [place] [address] OFFICE VISIT Date of Service: 01/24/24 MR#: [id number] Acct: [id number] Name: AJ AREVALO Rep #: [id number] : 1945 Provider: RODRI Scherer Age/Sex: 78/F Location: [facility] Status: Signed Intake Vital Signs 11/11/23 07:56 [...] EAR COMPLAINT Chief Complaint: sinus complaint/chest congestion Resource Teacher Required: No Is patient in pain?: No [...] stated began December 29. Declined covid/flu test. [facility] Medical History Health care maintenance Osteopenia Hives [...] history: -Jose Cruz HPI HPI Chief Complaint: sinus complaint/chest congestion Details: [...] Inspection: n (more content not included)... Normal [facility] Vitamin D,25 Hydroxyon 12-18 Vitamin D 25-OH 39.9 ng/mL Normal [facility] Comment on above: Result Comment: Aranza min D 25(OH) Status Range Deficiency <20 ng/mL (50nmol/L) Insufficiency 20 - 30 ng/mL (50 - 75 nmol/L) Sufficiency 30 - 100 ng/mL (75 - 250 nmol/L) Toxicity >100 ng/mL (>250 nmol/L) Performed By: #### L 100.0100, L500.4100, L500.4050, L506.1000 #### [facility] [address] [place], [address] CBC W/Diff, Automatedon 11-28 Absolute Lymph 2.28 X10 3/uL Normal 0.83-4.51 [facility] Comment on above: Performed By: #### L 100.0100, L500.4100, L500.4050, L506.1000 #### [facility] [address] [place], [address] Absolute Neut 2.9 X10 3/uL Normal 2.0-7.7 [facility] Comment on above: Performed By: #### L 100.0100, L500.4100, L500.4050, L506.1000 #### [facility] [address] [place], [address] Basophils/100 WBC (Bld) 0.5 % Normal 0-1 [facility] Comment on above: Performed By: #### L 100.0100, L500.4100, L500.4050, L506.1000 #### [facility] [address] [place], [address] Eosinophils/100 WBC (Bld) 3.3 % Normal 0-5 [facility] Comment on above: Performed By: #### L 100.0100, L500.4100, L500.4050, L506.1000 #### [facility] [address] [place], [address] Erythrocyte distribution width (RBC) [Ratio] 13.0 % Normal 11.6-14.6 [facility] Comment on above: Performed By: #### L 100.0100, L500.4100, L500.4050, L506.1000 #### [facility] [address] [place], [address] Hematocrit (Bld) [Volume fraction] 38.9 % Normal 37-47 [facility] Comment on above: Performed By: #### L 100.0100, L500.4100, L500.4050, L506.1000 #### [facility] [address] [place], [address] Hemoglobin (Bld) [Mass/Vol] 12.3 g/dL Normal 12.0-15.0 [facility] Comment on above: Performed By: #### L 100.0100, L500.4100, L500.4050, L506.1000 #### [facility] [address] [place], [address] IG% 0.500 Normal 0.0-0.9 [facility] Comment on above: Result Comment: IG% - Immature Granulocytes (promyelocytes, myelocytes and metamyelocytes) > 1% indicates that a LEFT SHIFT is Present. Performed By: #### L 100.0100, L500.4100, L500.4050, L506.1000 #### [facility] [address] [place], [address] Lymphocytes/100 WBC (Bld) 37.1 % Normal 19-41 [facility] Comment on above: Performed By: #### L 100.0100, L500.4100, L500.4050, L506.1000 #### [facility] [address] [place], [address] MCH (RBC) [Entitic mass] 28.9 pg Normal 27.0-32.0 [facility] Comment on above: Performed By: #### L 100.0100, L500.4100, L500.4050, L506.1000 #### [facility] [address] [place], [address] MCHC (RBC) [Mass/Vol] 31.6 g/dL Low 32-[address] [facility] Comment on above: Performed By: #### L 100.0100, L500.4100, L500.4050, L506.1000 #### [facility] [address] [place], [address] MCV (RBC) [Entitic vol] 91.5 fL Normal 81-99 [facility] Comment on above: Performed By: #### L 100.0100, L500.4100, L500.4050, L506.1000 #### [facility] [address] [place], [address] Monocytes/100 WBC (Bld) 11.2 % High 0-10 [facility] Comment on above: Performed By: #### L 100.0100, L500.4100, L500.4050, L506.1000 #### [facility] [address] [place], [address] Neutrophils/100 WBC (Bld) 47.4 % Normal 47-70 [facility] Comment on above: Performed By: #### L 100.0100, L500.4100, L500.4050, L506.1000 #### [facility] [address] [place], [address] Nucleated RBC (Bld) [#/Vol] 0 10*3/uL Normal 0-5 [facility] Comment on above: Performed By: #### L 100.0100, L500.4100, L500.4050, L506.1000 #### [facility] [address] [place], [address] Platelet mean volume (Bld) [Entitic vol] 9.3 fL Normal 6.2-12.0 [facility] Comment on above: Performed By: #### L 100.0100, L500.4100, L500.4050, L506.1000 #### [facility] [facility] [address] [place], [address] Platelets (Bld) [#/Vol] 395 10*3/uL Normal 150-450 [facility] Comment on above: Performed By: #### L 100.0100, L500.4100, L500.4050, L506.1000 #### [facility] [address] [place], [address] RBC (Bld) [#/Vol] 4.25 10*6/uL Normal 4.2-5.4 [facility] Comment on above: Performed By: #### L 100.0100, L500.4100, L500.4050, L506.1000 #### [facility] [address] [place], [address] RDW SD 44.0 fl High 35.1-43.9 [facility] Comment on above: Performed By: #### L 100.0100, L500.4100, L500.4050, L506.1000 #### [facility] [address] [place], [address] WBC (Bld) [#/Vol] 6.2 10*3/uL Normal 4.4-11.0 [facility] Comment on above: Performed By: #### L 100.0100, L500.4100, L500.4050, L506.1000 #### [facility] [address] [place], [address] Comprehensive Metabolic Prof ilon 12-17-2023 Albumin [Mass/Vol] 3.9 g/dL Normal 3.2-5.0 [facility] Comment on above: Performed By: #### L 100.0100, L500.4100, L500.4050, L506.1000 #### [facility] [address] [place], [address] Albumin/Globulin [Mass ratio] 1.0 {ratio} Normal 0.9-2.4 [facility] Comment on above: Performed By: #### L 100.0100, L500.4100, L500.4050, L506.1000 #### [facility] [address] [place], [address] ALK P 101 U/L Normal 45-117 [facility] Comment on above: Performed By: #### L 100.0100, L500.4100, L500.4050, L506.1000 #### [facility] [address] [place], [address] ALT [Catalytic activity/Vol] 30 U/L Normal 13-56 [facility] Comment on above: Performed By: #### L 100.0100, L500.4100, L500.4050, L506.1000 #### [facility] [address] [place], [address] AST [Catalytic activity/Vol] 26 U/L Normal 15-37 [facility] Comment on above: Performed By: #### L 100.0100, L500.4100, L500.4050, L506.1000 #### [facility] [address] [place], [address] Bilirubin [Mass/Vol] 0.60 mg/dL Normal 0.20-1.00 [facility] Comment on above: Result Comment: For patients on eltrombopag therapy, use of Dimension [place] TBIL is not recommended. Performed By: #### L 100.0100, L500.4100, L500.4050, L506.1000 #### [facility] [address] [place], [address] BUN/CRE 30.9 RATIO High 10-20 [facility] Comment on above: Performed By: #### L 100.0100, L500.4100, L500.4050, L506.1000 #### [facility] [address] [place], [address] CA,Total 9.3 mg/dL Normal 8.5-10.1 [facility] Comment on above: Performed By: #### L 100.0100, L500.4100, L500.4050, L506.1000 #### [facility] [address] [place], [address] Chloride [Moles/Vol] 107 mmol/L Normal 98-107 [facility] Comment on above: Performed By: #### L 100.0100, L500.4100, L500.4050, L506.1000 #### [facility] [address] [place], [address] CO2 [Moles/Vol] 26.0 mmol/L Normal 21.0-32.0 [facility] Comment on above: Performed By: #### L 100.0100, L500.4100, L500.4050, L506.1000 #### [facility] [address] [place], [address] Creatinine [Mass/Vol] 0.87 mg/dL Normal 0.55-1.[address] [facility] Comment on above: Result Comment: The validity of the calculated GFR GFRAA in patients over 70 years has not been determined. Clinical correlation is essential. Performed By: #### L 100.0100, L500.4100, L500.4050, L506.1000 #### [facility] [address] [place], [address] EST GFR - AA 81 mL/min Normal >60 [facility] Comment on above: Result Comment: Afri can [place] GFR Calc Performed By: #### L 100.0100, L500.4100, L500.4050, L506.1000 #### [facility] [address] [place], [address] GAP 6 Normal 5-15 [facility] Comment on above: Performed By: #### L 100.0100, L500.4100, L500.4050, L506.1000 #### [facility] [address] [place], [address] GFR/1.73 sq M.predicted among non-blacks MDRD (S/P/Bld) [Vol rate/Area] 67 mL/min/{1.73_m2} Normal >60 [facility] Comment on above: Result Comment: Non- GFR Calc Performed By: #### L 100.0100, L500.4100, L500.4050, L506.1000 #### [facility] [address] [place], [address] Globulin (S) [Mass/Vol] 4.1 g/dL Normal 2.2-4.2 [facility] Comment on above: Performed By: #### L 100.0100, L500.4100, L500.4050, L506.1000 #### [facility] [address] [place], [address] Glucose [Mass/Vol] 97 mg/dL Normal 74-106 [facility] Comment on above: Performed By: #### L 100.0100, L500.4100, L500.4050, L506.1000 #### [facility] [address] [place], [address] Potassium [Moles/Vol] 4.3 mmol/L Normal 3.5-5.[address] [facility] Comment on above: Performed By: #### L 100.0100, L500.4100, L500.4050, L506.1000 #### [facility] [address] [place], [address] Sodium [Moles/Vol] 139 mmol/L Normal 136-145 [facility] Comment on above: Performed By: #### L 100.0100, L500.4100, L500.4050, L506.1000 #### [facility] [address] [place], [address] T PROT 8.0 g/dL Normal 6.4-8.2 [facility] Comment on above: Performed By: #### L 100.0100, L500.4100, L500.4050, L506.1000 #### [facility] [address] [place], [address] Urea nitrogen [Mass/Vol] 27 mg/dL High -18 [facility] Comment on above: Performed By: #### L 100.0100, L500.4100, L500.4050, L506.1000 #### [facility] [address] [place], [address] Lipid Profileon 12-17-2023 Cholesterol [Mass/Vol] 242 mg/dL High [address] [facility] Comment on above: Result Comment: <200 mg/dL Desirable 200-240 mg/dL Borderline >240 mg/dL High Risk Performed By: #### L 100.0100, L500.4100, L500.4050, L506.1000 #### [facility] [address] [place], [address] Cholesterol in HDL [Mass/Vol] 76 mg/dL Normal [facility] Comment on above: Result Comment: The drugs N-Acetylcysteine and Metamizole may falsely depress this assay. Reference Range HDL <40 mg/dL Low HDL Cholesterol HDL >or= 60 mg/dL High HDL Cholesterol Performed By: #### L 100.0100, L500.4100, L500.4050, L506.1000 #### [facility] [address] [place], [address] Cholesterol in LDL [Mass/Vol] 147 mg/dL High 0-130 [facility] Comment on above: Performed By: #### L 100.0100, L500.4100, L500.4050, L506.1000 #### [facility] [address] [place], [address] Cholesterol in VLDL [Mass/Vol] 19 mg/dL Normal 5-40 [facility] Comment on above: Performed By: #### L 100.0100, L500.4100, L500.4050, L506.1000 #### [facility] [address] [place], [address] Triglyceride [Mass/Vol] 96 mg/dL Normal [facility] Comment on above: Result Comment: The drugs N-Acetylcysteine and Metamizole may falsely depress this assay. Serum Triglycerides Reference Interval Normal <150 mg/dL Borderline high 150 - 199 mg/dL High 200 - 499 mg/dL Very High > or = 500 mg/dL Performed By: #### L 100.0100, L500.4100, L500.4050, L506.1000 #### [facility] [address] [place], [address] Internal Medicine Office Vis netta 11-11-2023 Internal Medicine Office Visit [facility] [address] [place] [address] [place] [address] OFFICE VISIT Date of Service: 11/11/23 MR#: [id number] Acct: [id number] Name: AJ AREVALO Rep #: [id number] : 1945 Provider: Dr. Kym rdz MD Age/Sex: 77/F Location: [facility] Status: Signed Intake Vital Signs 11/10/22 08:42 [...] Reasons: YEARLY Chief Complaint: Follow-up chronic conditions Resource Teacher Required: No Accompanied by: Self Is patient [...] burning urination, (more content not included)... 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 Normal [facility] Absolute lymphocyte countOrd ered By: Kym Del Rosario on 01-15-2023 Lymphocytes Auto (Unsp spec) [#/Vol] 2.15 10*3/uL 0.83-4.51 [facility] Basophil percentageOrdered B y: Kym Del Rosario on 01-15-2023 Basophils/100 WBC (Bld) 0.8 % 0-1 [facility] Bilirubin [Mass/Vol] 0.50 mg/dL 0.20-1.00 [facility] Comment on above: For patients on eltr ombopag therapy, use of Dimension [place] TBIL is not recommended. Chloride [Moles/Vol] 107 mmol/L 98-107 [facility] Cholesterol [Mass/Vol] 205 mg/dL <[address] [facility] Comment on above: <200 mg/dL Desirable 200-240 mg/dL Borderline >240 mg/dL High Risk Eosinophils/100 WBC (Bld) 3.7 % 0-5 [facility] Glucose [Mass/Vol] 98 mg/dL 74-106 [facility] Neutrophils (Bld) [#/Vol] 2.1 10*3/uL 2.0-7.7 [facility] Neutrophils/100 WBC (Bld) 41.5 % 47-70 [facility] Potassium [Moles/Vol] 4.7 mmol/L 3.5-5.[address] [facility] Protein [Mass/Vol] 7.8 g/dL 6.4-8.2 [facility] Sodium [Moles/Vol] 140 mmol/L 136-145 [facility] Triglyceride [Mass/Vol] 118 mg/dL <199 [facility] Comment on above: The drugs N-Acetylcy steine and Metamizole may falsely depress this assay.Serum Triglycerides Reference Interval Normal <150 mg/dL Borderline high 150 - 199 mg/dL High 200 - 499 mg/dL Very High > or = 500 mg/dL WBC (Bld) [#/Vol] 5.1 10*3/uL 4.4-11.0 [facility] Blood erythrocytes count (nu mber/volume)Ordered By: Kym Del Rosario on 01-15-2023 RBC (Bld) [#/Vol] 4.23 10*6/uL 4.2-5.4 [facility] Blood hemoglobin measurement (mass/volume)Ordered By: Kym Del Rosario on 01-15-2023 Hemoglobin (Bld) [Mass/Vol] 12.3 g/dL 12.0-15.0 [facility] Blood lymphocytes/100 leukoc ytesOrdered By: Kym Del Rosario on 01-15-2023 Lymphocytes/100 WBC (Bld) 42.1 % 19-41 [facility] Blood monocytes/100 leukocyt esOrdered By: Kym Del Rosario on 01-15-2023 Monocytes/100 WBC (Bld) 11.7 % 0-10 [facility] Blood platelet mean volumeOr dered By: Kym Del Rosario on 01-15-2023 Platelet mean volume (Bld) [Entitic vol] 9.3 fL 6.2-12.0 [facility] Determination of erythrocyte mean corpuscular volume (MCV)Ordered By: Kym Del Rosario on 01-15-2023 MCV (RBC) [Entitic vol] 91.3 fL 81-99 [facility] Hematocrit Auto (Bld) [Volum e fraction]Ordered By: Kym Del Rosario on 01-15-2023 Hematocrit (Bld) [Volume fraction] 38.6 % 37-47 [facility] Laboratory - Chemistry and C hemistry - challengeOrdered By: Kym Del Rosario on 01-15-2023 ALP [Catalytic activity/Vol] 88 U/L 45-117 [facility] ALT [Catalytic activity/Vol] 26 U/L 13-56 [facility] CO2 [Moles/Vol] 27.0 mmol/L 21.0-32.0 [facility] Globulin (S) [Mass/Vol] 4.1 g/dL 2.2-4.2 [facility] Urea nitrogen/Creatinine [Mass ratio] 25.0 mg/mg 10-20 [facility] - Hematology and Cell countsOrdered By: silkeijamsvillechino Iqbaldany on 01-15-2023 Erythrocyte distribution width (RBC) [Entitic vol] 45.2 fL 35.1-43.9 [facility] Erythrocyte distribution width (RBC) [Ratio] 13.4 % 11.6-14.6 [facility] Immature granulocytes/100 WBC (Bld) 0.200 % 0.0-0.9 [facility] Comment on above: IG% - Immature Granu locytes (promyelocytes, myelocytes and metamyelocytes) > 1% indicates that a LEFT SHIFT is Present. MCH (RBC) [Entitic mass] 29.1 pg 27.0-32.0 [facility] Nucleated RBC/100 WBC (Bld) [Ratio] 0 % 0-5 [facility] MCHC Auto (RBC) [Mass/Vol]Or dered By: Kym Del Rosario on 01-15-2023 MCHC (RBC) [Mass/Vol] 31.9 g/dL 32-[address] [facility] No Panel InformationOrdered By: Kym Del Rosario on 01-15-2023 Estimated GFR (MDRD) Amer 85 mL/min >60 [facility] Comment on above: GFR Calc Estimated GFR (MDRD) Non-Af Amer 70 mL/min >60 [facility] Comment on above: Non- GFR Calc Vitamin D 25-Hydroxy 55.6 ng/mL [facility] Comment on above: Vitamin D 25(OH) Sta tus Range Deficiency <20 ng/mL (50nmol/L) Insufficiency 20 - 30 ng/mL (50 - 75 nmol/L) Sufficiency 30 - 100 ng/mL (75 - 250 nmol/L) Toxicity >100 ng/mL (>250 nmol/L) Platelets bldOrdered By: Ocdany holt Miguel Ángel on 01-15-2023 Platelets (Bld) [#/Vol] 382 10*3/uL 150-450 [facility] Serum or plasma albumin radha urement (mass/volume)Ordered By: Kym Del Rosario on 01-15-2023 Albumin [Mass/Vol] 3.7 g/dL 3.2-5.0 [facility] Serum or plasma albumin/glob ulin mass ratioOrdered By: Kym Del Rosario on 01-15-2023 Albumin/Globulin [Mass ratio] 0.9 {ratio} 0.9-2.4 [facility] Serum or plasma calcium radha urement (mass/volume)Ordered By: Kym Del Rosario on 01-15-2023 Calcium [Mass/Vol] 9.3 mg/dL 8.5-10.1 [facility] Serum or plasma cholesterol in HDL measurement (mass/volume)Ordered By: Kym Del Rosario on 01-15-2023 Cholesterol in HDL [Mass/Vol] 66 mg/dL >40 [facility] Comment on above: The drugs N-Acetylcy steine and Metamizole may falsely depress this assay. Reference Range HDL <40 mg/dL Low HDL Cholesterol HDL >or= 60 mg/dL High HDL Cholesterol Serum or plasma cholesterol in VLDL measurement (mass/volume)Ordered By: Kym Del Rosario on 01-15-2023 Cholesterol in VLDL [Mass/Vol] 24 mg/dL 5-40 [facility] Serum or plasma creatinine m easurement (mass/volume)Ordered By: Kym Del Rosario on 01-15-2023 Creatinine [Mass/Vol] 0.84 mg/dL 0.55-1.[address] [facility] Comment on above: The validity of the calculated GFR & GFRAA in patients over 70 years has not been determined. Clinical correlation is essential. Serum or plasma low density lipoprotein (LDL) cholesterol measurement (mass/volume)Ordered By: [facility] Del Rosario on 01-15-2023 Cholesterol in LDL [Mass/Vol] 115 mg/dL 0-130 [facility] Serum or plasma urea nitroge n measurement (mass/volume)Ordered By: [facility] Del Ros[facility] on 01-15-2023 Urea nitrogen [Mass/Vol] 21 mg/dL 7-18 [facility] Thin prep Papanicolaou smear with manual screeningOrdered By: [facility] Del [facility] on 01-15-2023 Thin prep Papanicolaou smear with manual screening 24 U/L 15-37 [facility] Thin prep Papanicolaou smear with manual screening 6 5-15 [facility] CNOVon 11-05-2021 CNOV Office Visit (INTMWS ) AJ AREVALO ([id number]) 1945 F Date Time Provider Department 11/05/21 8:40 AM YADI HERNANDEZ INTMWS During your visit today, we recorded the following information about you: Pulse Respiration Blood pressure Weight 72/minute 16/minute 138/72 59 kg Height 1.57 m Yadi Hernandez MD 11/05/2021 1:35 PM Signed Medicare [...] UNI/BI OPEN REPAIR OF ROTATOR CUFF ACUTE / LEFT Rotator cuff repair OPEN REPAIR OF [...] she has an eye doctor- going to [place] for 3 weeks. End of Live Planning [...] patient: - Lipid panel - Glaucoma screening Yadi Hernandez MD Patient has white coat syndrome, [...] 3 LIPID PANEL BASIC [SQLIPB] Order #: [id number] FUTURE Prescriptions as of 11/05/2021 - lisinopril [...] MCG CA (more content not included)... Normal [facility] Lipid 1996 panelon 2 Cholesterol [Mass/Vol] 215 mg/dL High <200 Cl [facility] Comment on above: Order Comment: Speci men Type: BLOOD SPECIMEN Ordering Facility: [facility] Address: [address] [id number] Result Comment: <200 mg/dL, Desirable 200-239 mg/dL, Borderline high >239 mg/dL, High Performed By: #### 2 4331-1 #### [facility] CLIA [id number] [address] [facility] [place] [address] [place] Cholesterol in HDL [Mass/Vol] 66 mg/dL Normal >39 [facility] Comment on above: Order Comment: Speci men Type: BLOOD SPECIMEN Ordering Facility: [facility] Address: [address] [place], [place] [address] Result Comment: 40-5 9 mg/dL, Acceptable >59 mg/dL, High: Negative risk factor for coronary heart disease <40 mg/dL, Low: Positive risk factor for coronary heart disease Performed By: #### 2 4331-1 #### [facility] CLIA [id number] [address] [place] [address] [place] Cholesterol in LDL [Mass/Vol] 126 mg/dL High <100 [facility] Comment on above: Order Comment: Angel men Type: BLOOD SPECIMEN Ordering Facility: [facility] Address: [address] [place] [address] Result Comment: <100 mg/dL, Optimal 100-129 mg/dL, Near optimal/above optimal 130-159 mg/dL, Borderline high 160-189 mg/dL, High >189 mg/dL, Very high Secondary prevention optimal LDL Cholesterol levels are recommended to be < 70 mg/dL Performed By: #### 2 4331-1 #### [facility] CLIA [id number] [address] [place] [address] [place] Cholesterol in LDL/Cholesterol in HDL [Mass ratio] 1.91 {ratio} Normal <2.54 [facility] Comment on above: Order Comment: Angel men Type: BLOOD SPECIMEN Ordering Facility: [facility] Address: [address] [place], [place] [address] Result Comment: Refe rence: 1. National Cholesterol Education Program ATP III Guideline At-A-Glance Quick Desk Reference: National Heart, Lung, and Blood Ransom. National Institutes of Health. 2001: NIH Publication No. 01-3305. 2. An International Atherosclerosis Society position paper: global recommendations for the management of dyslipidemia: executive summary, Atherosclerosis. 2014: 232(2):410-413. Performed By: #### 2 4331-1 #### [facility] CLIA [id number] [facility] [address] [place] Cholesterol in VLDL [Mass/Vol] 23 mg/dL Normal <30 [facility] Comment on above: Order Comment: Angel guzman Type: BLOOD SPECIMEN Ordering Facility: [facility] Address: [address] [place] [address] Performed By: #### 2 4331-1 #### [facility] CLIA [id number] [address] [place] [address] [place] Cholesterol non HDL [Mass/Vol] 149 mg/dL High <130 [facility] Comment on above: Order Comment: Angel guzman Type: BLOOD SPECIMEN Ordering Facility: [facility] Address: [address] [place] [address] Result Comment: <130 mg/dL, Optimal 130-159 mg/dL, Near optimal/above optimal 160-189 mg/dL, Borderline high 190-219 mg/dL, High >219 mg/dL, Very high Secondary prevention optimal non HDL Cholesterol levels are recommended to be <100 mg/dL Performed By: #### 2 4331-1 #### [facility] CLIA [id number] [address] [place] [address] [place] Cholesterol.total/Chol esterol in HDL [Mass ratio] 3.26 {ratio} Normal <5.10 [facility] Comment on above: Order Comment: Angel guzman Type: BLOOD SPECIMEN Ordering Facility: [facility] Address: [address] [place] [address] Performed By: #### 2 4331-1 #### [facility] CLIA [id number] [address] [place] [address] [place] FASTING TIME 14 hrs Normal [facility] Comment on above: Order Comment: Speci men Type: BLOOD SPECIMEN Ordering Facility: [facility] Address: [address] [place] [address] Performed By: #### 2 4331-1 #### [facility] CLIA [id number] [address] [place] [address] [place] Triglyceride [Mass/Vol] 115 mg/dL Normal <150 [facility] Comment on above: Order Comment: Speci men Type: BLOOD SPECIMEN Ordering Facility: [facility] Address: [address] [place] [address] Result Comment: <150 mg/dL, Normal 150-199 mg/dL, Borderline high 200-499 mg/dL, High >499 mg/dL, Very high Performed By: #### 2 4331-1 #### [facility] CLIA [id number] [address] [place] [address] [place] Basic metabolic 2000 panelon 11-03-2021 Anion gap [Moles/Vol] 12 mmol/L Normal 9-[address] [facility] Comment on above: Order Comment: Speci men Type: BLOOD SPECIMEN Ordering Facility: [facility] Address: [address] [place] [address] Performed By: #### 2 4321-2 #### [facility] CLIA [id number] [address] [place] [address] [place] Calcium [Mass/Vol] 9.8 mg/dL Normal 8.5-10.2 [facility] Comment on above: Order Comment: Speci men Type: BLOOD SPECIMEN Ordering Facility: [facility] Address: [address] [place] [address] Performed By: #### 2 4321-2 #### [facility] CLIA [id number] [address] [place] [address] [place] Chloride [Moles/Vol] 103 mmol/L Normal 97-105 [facility] Comment on above: Order Comment: Speci men Type: BLOOD SPECIMEN Ordering Facility: [facility] Address: [address] [place] [address] Performed By: #### 2 4321-2 #### [facility] CLIA [id number] [address] [place] [address] [place] CO2 [Moles/Vol] 24 mmol/L Normal 22-30 [facility] Comment on above: Order Comment: Speci men Type: BLOOD SPECIMEN Ordering Facility: [facility] Address: [address] [place] [address] Performed By: #### 2 4321-2 #### [facility] CLIA [id number] [address] [place] [address] [place] Creatinine [Mass/Vol] 0.86 mg/dL Normal 0.58-0.[address] [facility] Comment on above: Order Comment: Speci men Type: BLOOD SPECIMEN Ordering Facility: [facility] Address: [address] [place] [address] Performed By: #### 2 4321-2 #### [facility] CLIA [id number] [address] [place] [address] [place] ESTIMATED GLOMERULAR FILTRATION RATE 71 mL/min/1.73m??? Normal >=60 [facility] Comment on above: Order Comment: Speci men Type: BLOOD SPECIMEN Ordering Facility: [facility] Address: [address] [place] [address] Result Comment: Renee mated Glomerular Filtration Rate [...] GFR. Performed By: #### 2 4321-2 #### [facility] CLIA [id number] [address] [place] [address] [place] Glucose [Mass/Vol] 83 mg/dL Normal 74-99 [facility] Comment on above: Order Comment: Speci men Type: BLOOD SPECIMEN Ordering Facility: [facility] Address: [address] [place] [address] Result Comment: The [place] [employer] (ADA) provides guidance for cutoff [...] Standards of Medical Care in Diabetes 2016, [place] [employer]. Diabetes Care. 2016.39(Suppl 1). Performed By: #### 2 4321-2 #### [facility] CLIA [id number] [address] [place] [address] [place] Potassium [Moles/Vol] 3.9 mmol/L Normal 3.7-5.[address] [facility] Comment on above: Order Comment: Speci men Type: BLOOD SPECIMEN Ordering Facility: [facility] Address: [address] [place], [place] [address] Performed By: #### 2 4321-2 #### [facility] CLIA [id number] [address] [place] [address] [place] Sodium [Moles/Vol] 139 mmol/L Normal 136-144 [facility] Comment on above: Order Comment: Speci men Type: BLOOD SPECIMEN Ordering Facility: [facility] Address: [address] [place], [place] [address] Performed By: #### 2 4321-2 #### [facility] CLIA [id number] [address] [place] [address] [place] Urea nitrogen [Mass/Vol] 22 mg/dL High 7-21 [facility] Comment on above: Order Comment: Speci men Type: BLOOD SPECIMEN Ordering Facility: [facility] Address: [address] [place] [address] Performed By: #### 2 4321-2 #### [facility] CLIA [id number] [address] [place] [address] [place] CBC panel Auto (Bld)on 11-03 Erythrocyte distribution width (RBC) [Ratio] 13.2 % Normal 11.5-15.0 [facility] Comment on above: Order Comment: Speci men Type: BLOOD SPECIMEN Ordering Facility: [facility] Address: [address] [place] [address] Performed By: #### 5 8410-2 #### [facility] CLIA [id number] [address] [place] [address] [place] Hematocrit (Bld) [Volume fraction] 39.2 % Normal 36.0-46.0 [facility] Comment on above: Order Comment: Speci men Type: BLOOD SPECIMEN Ordering Facility: [facility] Address: [address] [place] [address] Performed By: #### 5 8410-2 #### [facility] CLIA [id number] [address] [place] [address] [place] Hemoglobin (Bld) [Mass/Vol] 12.6 g/dL Normal 11.5-15.5 [facility] Comment on above: Order Comment: Speci men Type: BLOOD SPECIMEN Ordering Facility: [facility] Address: [address] [place], [place] [address] Performed By: #### 5 8410-2 #### [facility] CLIA [id number] [address] [place] [address] [place] MCH (RBC) [Entitic mass] 29.7 pg Normal 26.0-34.0 [facility] Comment on above: Order Comment: Speci men Type: BLOOD SPECIMEN Ordering Facility: [facility] Address: [address] [place], [place] [address] Performed By: #### 5 8410-2 #### [facility] CLIA [id number] [address] [place] [address] [place] MCHC (RBC) [Mass/Vol] 32.1 g/dL Normal 30.5-36.[address] [facility] Comment on above: Order Comment: Speci men Type: BLOOD SPECIMEN Ordering Facility: [facility] Address: [address] [place], [place] [address] Performed By: #### 5 8410-2 #### [facility] CLIA [id number] [address] [place] [address] [place] MCV (RBC) [Entitic vol] 92.5 fL Normal 80.0-100.0 [facility] Comment on above: Order Comment: Speci men Type: BLOOD SPECIMEN Ordering Facility: [facility] Address: [address] [place], [place] [address] Performed By: #### 5 8410-2 #### [facility] CLIA [id number] [address] [place] [address] [place] Nucleated RBC (Bld) [#/Vol] 10*3/uL Normal <0.01 [facility] Comment on above: Order Comment: Speci men Type: BLOOD SPECIMEN Ordering Facility: [facility] Address: [address] [place], [place] [address] Performed By: #### 5 8410-2 #### [facility] CLIA [id number] [address] [place] [address] [place] Platelet mean volume (Bld) [Entitic vol] 10.1 fL Normal 9.0-12.7 [facility] Comment on above: Order Comment: Speci men Type: BLOOD SPECIMEN Ordering Facility: [facility] Address: [address] [place] [address] Performed By: #### 5 8410-2 #### [facility] CLIA [id number] [address] [place] [address] [facility] [place] Platelets (Bld) [#/Vol] 361 10*3/uL Normal 150-400 [facility] Comment on above: Order Comment: Speci men Type: BLOOD SPECIMEN Ordering Facility: [facility] Address: [address] [place] [address] Performed By: #### 5 8410-2 #### [facility] CLIA [id number] [address] [place] [address] RBC (Bld) [#/Vol] 4.24 10*6/uL Normal 3.90-5.20 [facility] Comment on above: Order Comment: Speci men Type: BLOOD SPECIMEN Ordering Facility: [facility] Address: [address] [place] [address] Performed By: #### 5 8410-2 #### [facility] CLIA [id number] [address] [place] [address] WBC (Bld) [#/Vol] 6.03 10*3/uL Normal 3.70-11.00 [facility] Comment on above: Order Comment: Speci men Type: BLOOD SPECIMEN Ordering Facility: [facility] Address: [address] [place] [address] Performed By: #### 5 8410-2 #### [facility] CLIA [id number] [address] [place] [address] OF [place]I Dayanna 10-14-2021 BETO Telephone (INTMWS) AJ AREVALO ([id number]) 1945 F Date Time Provider Department 10/14/21 YADI HERNANDEZ During your visit today, we recorded the following information about you: Lani Claire RN 10/14/2021 8:15 AM Signed Pt called in and reports she is getting a mammogram at [facility] 10/21/21. Pt asking for orders to be sent to [facility] for mammogram. Orders sent to fax # [phone]. Allergies As of Date: 10/14/2021 Noted Allergy Reaction DARVOCET A500 (PROPOXYPHENE N-TERRY*08/11/2005 ERYTHROMYCIN 10/26/2004 4 - Hives MOTRIN (IBUPROFEN) 10/26/2004 Comments: RINGING IN EARS PENICILLINS 10/26/2004 VICODIN (HYDROCODONE-ACETAMINOP HE*09/19/2006 ZITHROMAX (AZITHROMYCIN) 10/26/2004 Date Reviewed: 11/04/2020 Reviewed by: Prabhakar Eason APRN.PLANOGRAMMER - Fully Assessed Reason for Visit: Orders [...] goal <130 [E78.5] 10/15/2015 Encounter Status:Closed by LANI CLAIRE on 10/14/21 Normal [facility] Vital Signs Date Time Vital Sign Value Performing Clinician Faci lity 11-12-2024 07:59-0400 Body height 157.[address] Joslyn Stanton DO Work Phone: [facility] 11-12-2024 07:59-0400 Body mass index (BMI) [Ratio] 26.2 kg/m2 Dr. Joslyn Stanton DO Work Phone: [facility] 11-12-2024 07:59-0400 Body temperature 98.9 [degF] Dr. Joslyn Stanton DO Work Phone: [facility] 11-12-2024 07:59-0400 Body weight 64.[address] Joslyn Stanton DO Work Phone: [facility] 11-12-2024 07:59-0400 Diastolic blood pressure 84 mm[Hg] Dr. Joslyn Stanton DO Work Phone: [facility] 11-12-2024 07:59-0400 Heart rate 72 /min Dr. Joslyn Stanton DO Work Phone: [facility] 11-12-2024 07:59-0400 Respiratory rate 16 /min Dr. Joslyn Stanton DO Work Phone: [facility] 11-12-2024 07:59-0400 SaO2% (BldA) [Mass fraction] 97 % Dr. Joslyn Stanton DO Work Phone: [facility] 11-12-2024 07:59-0400 Systolic blood pressure 144 mm[Hg] Dr. Joslyn Stanton DO Work Phone: [facility] 11-10-2022 08:42-0400 Body height 157.[address] Yadi Hernandez Work Phone: 2(002)859-557363 [address] 11-10-2022 08:42-0400 Body mass index (BMI) [Ratio] 24.8 kg/m2 Dr. Yadi Hernandez Work Phone: 3(592)[phone] [place] [address] 11-10-2022 08:42-0400 Body temperature 98.7 [degF] Dr. Yadi Hernandez Work Phone: 1(908)491-909460 [place] [address] 11-10-2022 08:42-0400 Body weight 61.[address] Yadi Hernandez Work Phone: 6(355)[phone] [address] 11-10-2022 08:42-0400 Diastolic blood pressure 78 mm[Hg] Dr. Yadi Hernandez Work Phone: 0(036)342-947363 [address] 11-10-2022 08:42-0400 Heart rate 67 /min Dr. Yadi Hernandez Work Phone: 5(854)916-902460 [place] [address] 11-10-2022 08:42-0400 Respiratory rate 16 /min Dr. Yadi Hernandez Work Phone: 3(785)253-964060 [place] [address] 11-10-2022 08:42-0400 SaO2% (BldA) [Mass fraction] 99 % Dr. Yadi Hernandez Work Phone: 5(847)631-156160 [place] [address] 11-10-2022 08:42-0400 Systolic blood pressure 128 mm[Hg] Dr. Yadi Hernandez Work Phone: 5(197)616-289460 [place] [address] 10-27-2022 15:46-0400 Body mass index (BMI) [Ratio] 24.7 kg/m2 Dr. Yadi Hernandez Work Phone: [facility] 10-27-2022 15:46-0400 Body weight 61.[address] Yadi Hernandez Work Phone: [facility] 10-27-2022 15:46-0400 Diastolic blood pressure 81 mm[Hg] Dr. Yadi Hernandez Work Phone: [facility] 10-27-2022 15:46-0400 Systolic blood pressure 146 mm[Hg] Dr. Yadi Hernandez Work Phone: [facility] 11-05-2021 08:37-0400 Body height 157 cm Yadi Hernandez MD Work Phone: [facility] 11-05-2021 08:37-0400 Body weight 58.97 kg Yadi Hernandez MD Work Phone: [facility] 11-05-2021 08:37-0400 Diastolic blood pressure 72 mm[Hg] Yadi Hernadnez MD Work Phone: [facility] 11-05-2021 08:37-0400 Heart rate 72 /min Yadi Hernandez MD Work Phone: [facility] 11-05-2021 08:37-0400 Respiratory rate 16 /min Yadi Hernandez MD Work Phone: [facility] 11-05-2021 08:37-0400 Systolic blood pressure 138 mm[Hg] Yadi Hernandez MD Work Phone: [facility] 10-21-2021 08:05-0400 Body height 157.[address] Yadi Hernandez Work Phone: [facility] Work Phone: 10-21-2021 08:05-0400 Body mass index (BMI) [Ratio] 23.9 kg/m2 Dr. Yadi Hernandez Work Phone: [facility] Work Phone: 10-21-2021 08:05-0400 Body weight 59.[address] Yadi Hernandez Work Phone: [facility] Work Phone: 10-21-2021 08:05-0400 Diastolic blood pressure 90 mm[Hg] Dr. Yadi Hernandez Work Phone: [facility] Work Phone: 10-21-2021 08:05-0400 Systolic blood pressure 138 mm[Hg] Dr. Yadi Hernandez Work Phone: [facility] Work Phone: Encounters Encounter Date Encounter Type Care Provider Facility Start: 11-12-2024 End: 11-12-[address] Joslyn Stanton DO Work Phone: -[facility] Start: 11-12-2024 End: 11-12-[address] Kym Del Rosario MD -[facility] Work Phone: Start: 10-24-2024 End: 10-24-[address] Joslyn Stanton DO Work Phone: -[facility] Start: 10-24-2024 End: 10-24-[address] Joslyn Stanton DO -[facility] Work Phone: Start: 10-24-2024 End: 10-24-2024 ambulatory Joslyn Stanton Facility:[facility] Start: 06-16-2024 End: 06-16-2024 ambulatory [facility] Facility:[facility] Start: 01-24-2024 End: 01-24-2024 ambulatory Kem MACE Facility:[facility] Start: 12-17-2023 End: 12-17-2023 ambulatory [facility] Facility:[facility] Start: 11-11-2023 End: 11-11-2023 ambulatory [facility] Facility:[facility] Start: 11-07-2023 Encounter for gynecological examination (general) (routine) without abnormal findings Joslyn Stanton [facility] Start: 11-07-2023 End: 11-07-2023 ambulatory Yadi Hernandez Facility:[facility] Start: 01-15-2023 End: 01-15-[address] Yadi Hernandez Work Phone: [facility] Work Phone: Start: 01-15-2023 End: 01-15-[address] Yadi Hernandez Work Phone: [facility]-Laboratory Work Phone: Start: 11-23-2022 End: 11-23-[address] Yadi Hernandez Work Phone: [facility] Work Phone: Start: 11-23-2022 End: 11-23-[address] Yadi Hernandez Work Phone: [facility]-Outpatient Bone Densitometry Work Phone: Start: 11-10-[address] Damari Hernandez Work Phone: [facility] Start: 11-10-2022 End: 11-10-2022 Encounter for general adult medical examination without abnormal findings Dr. Yadi Hernandez Work Phone: [facility] Start: 11-10-2022 End: 11-10-[address] Yadi Hernandez Work Phone: [facility] Work Phone: Start: 10-27-2022 End: 10-27-[address] Yadi Hernandez Work Phone: [facility] Work Phone: Start: 10-22-2022 End: 10-22-[address] Yadi Hernandez Work Phone: [facility]-Outpatient Breast Imaging Work Phone: Start: 09-16-2022 Non-patient / Non-visit Dr. Amy Hernandez Work Phone: [facility] Work Phone: Start: 11-05-2021 End: 11-05-2021 Patient encounter procedure Yadi Hernandez MD Work Phone: [facility] [place] Comment on above: Medicare annual well ness visit, subsequent (Primary Dx); Essential hypertension, benign Start: 11-03-2021 ambulatory Yadi Dee Work Phone: [facility] [place] Comment on above: Lipid Panel Test Res ults Start: 10-21-2021 End: 10-21-[address] Yadi Hernandez Work Phone: [facility] Work Phone: Start: 10-21-2021 End: 10-21-[address] Yadi Hernandez Work Phone: [facility] Start: 10-20-2021 ambulatory Yadi Dee Work Phone: [facility] [place] Start: 05-20-2021 ambulatory Bart (Nathan) Maria [facility] [place] Comment on above: Population Health Na vigation Outreach ([employer] Gaps) Procedures Date Procedure Procedure Detail Performing Clinician Start: 10-24-2024 Screening mammography Leila Stanton DO Work Phone: Start: 11-23-2022 Dual energy X-ray absorptiometry Dr. Yadi Hernandez Work Phone: Start: 10-22-2022 Screening mammography Leila Hernandez Work Phone: Start: 11-05-2021 Adult depression scr eening assessment Yadi Hernandez MD Work Phone: Start: 10-21-2021 Screening mammography Leila Hernandez Work Phone: Start: 10-21-2020 Adult depression scr eening assessment Bart Colon Start: 12-13-2016 Colonoscopy aBrt wilson Plan of Treatment Date Care Activity Detail Author Start: 09-10-2030 Urine microalbumin profile DTAP,TDAP ,TD (1 - Tdap) [facility] Comment on above: Postponed from 09/11 (Postponed To Appropriate Date) Start: 12-13-2026 Colonoscopy COLONOSCOPY [facility] Start: 12-13-2026 COLORECTAL CANCER SCREENING COLORECTAL CANCER SCREENING [facility] Start: 10-23-2025 LIPID SCREEN LIPID SCREEN [facility] Start: 11-03-2024 DIABETES SCREEN DIABETES SCREEN [facility] Start: 10-24-2023 DIABETES SCREEN DIABETES SCREEN [facility] Start: 11-05-2022 Adult depression scr eening assessment DEPRESSION SCREENING [facility] Start: 11-05-2022 ANNUAL PCP TEAM MILL OPERATOR HELPER NEIL DISEASE VISIT ANNUAL PCP TEAM CHRONIC DISEASE VISIT [facility] Start: 11-05-2021 End: 01-05-2022 Lipid 1996 panel - Serum or Plasma [facility] Work Phone: Comment on above: Expected: 11/05/2021 , Expires: 01/05/2022 Start: 11-04-2021 ANNUAL PCP TEAM MILL OPERATOR HELPER NEIL DISEASE VISIT ANNUAL PCP TEAM CHRONIC DISEASE VISIT [facility] Start: 10-29-2021 Influenza vaccination INFLUENZA (#1) [facility] Start: 10-21-2021 Adult depression scr eening assessment DEPRESSION SCREENING [facility] Start: 10-20-2021 End: 12-20-2021 Basic metabolic 2000 panel - Serum or Plasma BASIC METABOLIC [facility] Lab Routine Essential hypertension, benign Expected: 10/20/2021, Expires: 12/20/2021 [facility] Work Phone: Comment on above: Expected: 10/20/2021 , Expires: 12/20/2021 Start: 10-20-2021 End: 12-20-2021 CBC panel - Blood by Automated count CBC Lab Routine Medication management Expected: 10/20/2021, Expires: 12/20/2021 [facility] Work Phone: Comment on above: Expected: 10/20/2021 , Expires: 12/20/2021 Start: 10-20-2021 End: 12-20-2021 SCHEDULE LAB TESTING SCHEDULE LAB TESTING Lab Routine Expected: 10/20/2021, Expires: 12/20/2021 [facility] Work Phone: Comment on above: Expected: 10/20/2021 , Expires: 12/20/2021 Start: 10-01-2021 COVID-19 VACCINE (4 - Booster for Pfizer series) COVID-19 VACCINE (4 - Booster for Pfizer series) [facility] Start: 02-28-2021 ADVANCE DIRECTIVE DISCUSSION ADVANCE DIRECTIVE DISCUSSION [facility] Start: 1990 COLOGUARD (FIT-DNA) COLOGUARD (FIT-D NA) [facility] Start: [address] COLONOGRAPHY [facility] Start: 1990 FECAL OCCULT BLOOD FECAL OCCULT BLOO D [facility] Start: 1990 SIGMOIDOSCOPY SIGMOIDOSCOPY [facility] Alanine aminotransfe rase [Enzymatic activity/volume] in Serum or Plasma [facility] Albumin [Mass/volume ] in Serum or Plasma [facility] Alkaline phosphatase [Enzymatic activity/volume] in Serum or Plasma [facility] Anion gap in Serum o r Plasma [facility] Bilirubin, total measurement [facility] BUN/Creatinine ratio [facility] Calcium [Mass/volume ] in Serum or Plasma [facility] Carbon dioxide, tota l [Moles/volume] in Central venous blood [facility] CBC W Auto Different ial panel - Blood [facility] Cholesterol [Mass/vo lume] in Serum or Plasma [facility] Cholesterol in HDL [Mass/volume] in Serum or Plasma [facility] Creatinine [Mass/vol ume] in Serum or Plasma [facility] DXA Bone [Mass/Area] Bone density [facility] Erythrocyte mean corpuscular volume determination [facility] Glucose [Mass/volume ] in Serum or Plasma [facility] Hematocrit [Volume Fraction] of Blood [facility] Hemoglobin [Mass/vol ume] in Blood [facility] Leukocytes [#/volume ] in Blood [facility] Lipid 1996 panel - S hui or Plasma [facility] Low density lipoprot ein cholesterol measurement [facility] Mean corpuscular hemoglobin concentration determination [facility] Mean corpuscular hemoglobin determination [facility] Measurement of renal function [facility] Neutrophil count [facility] Neutrophil percent differential count [facility] Platelets [#/volume] in Blood [facility] Potassium measurement [facility] Red blood cell count [facility] Red cell distributio n width determination [facility] End: 06-19-2022 Screening mammography bi 2-view breast inc cad ALTHEA SCREENING Radiology Routine Breast cancer screening by mammogram 1 Occurrences starting 05/20/2021 until 06/19/2022 [facility] Work Phone: Comment on above: 1 Occurrences starti ng 05/20/2021 until 06/19/2022 Serum chloride measurement [facility] Sodium measurement [facility] Total cholesterol:HD L ratio measurement [facility] Total protein measurement [facility] Triglycerides measurement [facility] Urea nitrogen [Mass/volume] in Serum or Plasma [facility] Vitamin D, 25-hydrox y measurement [facility] Vitamin D, 25-hydrox y measurement [facility] VLDL cholesterol measurement [facility] Immunizations Immunization Date Immunization Notes Care Provider Kera clark 06-01-2021 COVID-19 vaccine, ag e 12+ yr (Food [employer] - LEE [employer]) Yadi Hernandez MD Work Phone: [facility] 11-28-2020 influenza, seasonal, injectable [facility] 09-10-2020 tetanus and diphther ia toxoids, adsorbed, preservative free, for adult use (5 Lf of tetanus toxoid and 2 Lf of diphtheria toxoid) [facility] Work Phone: 11-26-2019 influenza, high dose seasonal, preservative-free [facility] 01-15-2019 zoster vaccine recombinant [facility] 12-16-2018 influenza, high dose seasonal, preservative-free [facility] 10-18-2018 zoster vaccine recombinant [facility] 12-31-2017 influenza, injectabl e, quadrivalent, contains preservative Bart [facility] 01-01-2017 influenza, injectabl e, quadrivalent, contains preservative [facility] Work Phone: 12-20-2015 influenza, injectabl e, quadrivalent, contains preservative [facility] 12-07-2014 influenza, high dose seasonal, preservative-free [facility] Work Phone: 10-11-2014 pneumococcal conjuga te vaccine, 13 valent [facility] 12-12-2013 influenza, seasonal, injectable [facility] 12-30-2010 pneumococcal polysaccharide vaccine, 23 valent [facility] Work Phone: 11-28-2010 influenza virus vacc ine, unspecified formulation [facility] Work Phone: 02-25-2010 zoster vaccine, live [facility] Work Phone: 12-24-2009 tetanus and diphther ia toxoids, adsorbed, preservative free, for adult use (2 Lf of tetanus toxoid and 2 Lf of diphtheria toxoid) [facility] 12-02-2009 influenza virus vacc ine, unspecified formulation [facility] Work Phone: 11-23-2008 influenza virus vacc ine, unspecified formulation [facility] 01-03-2008 influenza virus vacc ine, unspecified formulation [facility] 12-28-2006 influenza virus vacc ine, unspecified formulation [facility] 12-20-2005 influenza virus vacc ine, unspecified formulation [facility] Work Phone: 12-24-2004 influenza virus vacc ine, unspecified formulation [facility] Work Phone: 01-10-1995 hepatitis B vaccine, adult dosage [facility] Work Phone: 07-22-1994 hepatitis B vaccine, adult dosage [facility] Work Phone: 06-14-1994 hepatitis B vaccine, adult dosage [facility] Work Phone: Payers Date Payer Category Payer Self-pay [id number] 2022 Private Health Insurance 101 [id number] 2010 Medicare [employer] MEDICARE A ETNA MEDICARE PPO [id number] 2010-Present [phone] [address] [place] [address] PPO [id number] 2010 Medicare [employer] MEDICARE A [employer]NA MEDICARE PPO [id number] 2010-Present [phone] [address] [place] [address] PPO [id number] Unknown [id number] 62 Unknown [id number] 62 Unknown [id number] 62 Unknown [id number] 62 Unknown [id number] 62 Unknown [id number] Social History Date Type Detail Facility Start: 01-03-2012 End: 11-12-2024 Tobacco smoking status NHIS Never smoked tobacco [facility] Start: 11-04-2020 End: 11-05-2021 Alcohol intake Current non-drinker of alcohol (finding) [facility] Start: 10-22-2020 End: 10-30-2021 History SDOH Alcohol Frequency 1 [facility] Start: 10-21-2019 History SDOH Alcohol Std Drinks 98 [facility] Start: 10-22-2020 End: 09-02-2022 History SDOH Social Connections Phone 5 [facility] Start: 10-22-2020 End: 10-30-2021 History SDOH Social Connections Restorationist 3 [facility] Start: 10-22-2020 History SDOH Physica l Activity MPS 6 [facility] Start: 10-22-2020 End: 10-30-2021 History SDOH Stress 2 [facility] Start: 10-21-2019 Education 18 [facility] Start: 1945 Sex Assigned At Female C [facility] Start: 05-10-2021 End: 11-05-2021 Exposure to SARS-CoV-2 (event) Not sure [facility] Start: 01-03-2012 End: 11-05-2021 Tobacco use and exposure Smokeless tobacco non-user [facility] Start: 10-21-2021 End: 11-10-2022 Tobacco smoking status NHIS Unknown if ever smoked [facility] Start: 10-30-2021 History SDOH Alcohol Std Drinks 0 [facility] Start: 10-30-2021 History SDOH Physica l Activity DPW 7 [facility] Start: 10-30-2021 History SDOH Physica l Activity MPS 9 [facility] Gender Identity Identifies as fe male gender (finding) [facility] Sexual Orientation Heterosexual (finding) [facility] Clinical Notes 09-19-2006 to 11-05-2021 Telephone Encounter - Yadi Hernandez MD - 11/05/2021 9:35 AM Katelynn Hernandez MD - 11/05/2021 8:50 AM Katelynn Hernandez MD - 05/20/2021 3:53 PM EDT Note Date & Type Note Facility 11-05-2021 Note HNO ID: [id number] Author: Yadi Hernandez MD Service: ? Author Type: Physician [...] she has an eye doctor- going to [place] for 3 weeks. End of Live Planning [...] patient: - Lipid panel - Glaucoma screening Yadi Hernandez MD Patient has white coat syndrome, her blood pressures is high today but at home she is around 127 systolic, Diastolic is any in the range of 72 [facility] 11-05-2021 Miscellaneous Notes Addressed in another visit documented in this encounter [facility] 11-05-2021 History of Present illness Narrative Medicare [...] UNI/BI OPEN REPAIR OF ROTATOR CUFF ACUTE / LEFT Rotator cuff repair OPEN REPAIR OF [...] she has an eye doctor- going to [place] for 3 weeks. End of Live Planning [...] patient: - Lipid panel - Glaucoma screening Yadi Hernandez MD Patient has white coat syndrome, her blood pressures is high today but at home she is around 127 systolic, Diastolic is any in the range of 72 documented in this encounter [facility] 10-20-2021 Note Patient Outreach (IN [facility]) AJ AREVALO ([id number]) 1945 F Date Time Provider Department 10/20/21 YADI HERNANDEZ During your visit today, we recorded the following information about you: Allergies As of Date: 10/20/2021 Noted Allergy Reaction DARVOCET A500 (PROPOXYPHENE N-TERRY*08/11/2005 ERYTHROMYCIN 10/26/2004 4 - Hives MOTRIN (IBUPROFEN) 10/26/2004 Comments: RINGING IN EARS PENICILLINS 10/26/2004 VICODIN (HYDROCODONE-ACETAMINOPHE*09/20/19 07 ZITHROMAX (AZITHROMYCIN) 10/26/2004 Date Reviewed: 11/04/2020 Reviewed by: Prabhakar Eason APRN.PLANOGRAMMER - Fully Assessed Visit Diagnoses:Essential hypertension, benign [I10] Medication management [Z79.899] Order(s):BASIC METABOLIC PNL [SQBMP] Order #: [id number] FUTURE CBC [SQCBC] Order #: [id number] FUTURE SCHEDULE LAB TESTING [[id number]] Order #: [id number] FUTURE Prescriptions as of 10/23/2021 - lisinopril [...] Encounter Status:Closed by NEEL KAUR on 10/23/21 [facility] 05-20-2021 History of Present illness Narrative POPULATION HEALTH NAVIGATION OUTREACH Action/FYI: [employer] Care Gaps Discuss/Due: Advance Directives, Medicare Wellness Outcome: Patient scheduled for Medicare Wellness 11/05/21 Patient requesting new screening mammogram order faxed to [facility] at [phone]. States she would like to be scheduled [...] Message Sent to Practice: Yes Navigation Signature: Bart Colon Population Health Navigator May 20, 2021 3:53 PM documented in this encounter [facility] 05-20-2021 Note Patient Outreach (NE TNAV) AJ AREVALO ([id number]) 1945 F Date Time Provider Department 05/20/21 BART COLON (PSS) SOFIENAV During your visit today, we recorded the following information about you: Yaid Hernandez MD 06/22/2021 3:00 AM Signed POPULATION HEALTH NAVIGATION OUTREACH Action/FYI: [employer] Care Gaps Discuss/Due: Advance Directives, Medicare Wellness Outcome: Patient scheduled for Medicare Wellness 11/05/21 - Patient requesting new screening mammogram order faxed to [facility] at [phone]. States she would like to be scheduled [...] Message Sent to Practice: Yes Navigation Signature: Bart Colon Population Health Navigator May 20, 2021 3:53 PM Allergies As of Date: 05/20/2021 Noted Allergy Reaction DARVOCET A500 (PROPOXYPHENE N-TERRY*08/11/2005 ERYTHROMYCIN 10/26/2004 4 - Hives MOTRIN (IBUPROFEN) 10/26/2004 Comments: RINGING IN EARS PENICILLINS 10/26/2004 VICODIN (HYDROCODONE-ACETAMINOPHE*09/20/19 07 ZITHROMAX (AZITHROMYCIN) 10/26/2004 Date Reviewed: 11/04/2020 Reviewed by: Prabhakar Eason APRN.PLANOGRAMMER - Fully Assessed Reason for Visit: Population Health Navigation Outreach [3910] Cmt: [employer] Care Gaps Primary Visit Diagnosis:Breast cancer screening by mammogram [Z12.31] Order(s):[facility] SCREENING [[id number]] Order #: [id number] FUTURE Prescriptions as of 06/22/2021 - lisinopril [...] Encounter Status:Closed by VINCENT PRODUSER on 06/22/21 [facility] 09-19-2006 History of Past i llness Narrative Problem Noted Date Resolved Date Dermatophytosis of nail 09/19/2006 10/18/19 18 ANEMIA NOS 10/11/2014 Esophageal reflux 10/17/2017 documented as of this encounter (statuses as of 06/22/2021) [address]23-2007 History of Past illness Narrative* Problem Noted Date Resolved Date Dermatophytosis of nail 09/19/2006 10/18/19 18 ANEMIA NOS 10/11/2014 Esophageal reflux 10/17/2017 documented as of this encounter (statuses as of 10/23/2021) [address]-2007 History of Past illness Narrative* Problem Noted Date Resolved Date Dermatophytosis of nail 09/19/2006 10/18/19 18 ANEMIA NOS 10/11/2014 Esophageal reflux 10/17/2017 documented as of this encounter (statuses as of 11/05/2021) [address]-2007 History of Past illness Narrative* Problem Noted Date Resolved Date Dermatophytosis of nail 09/19/2006 10/18/19 18 ANEMIA NOS 10/11/2014 Esophageal reflux 10/17/2017 documented as of this encounter (statuses as of 11/05/2021) [facility] note* Diagnosis Breast cancer screening by mammogram- Primary documented in this encounter [facility] note* Diagnosis Essential hypertension, benign Medication management Encounter for long-term (current) use of other medications documented in this encounter [facility] note* Diagnosis Onset Date Resolution Status Encounter for routine gynecological examination noneactive [facility] Work Phone: Evaluation note* Diagnosis Medicare annual wellness visit, subsequent- Primary Routine general medical examination at a health care facility Essential hypertension, benign documented in this encounter [facility] note* Diagnosis Onset Date Resolution Status Encounter for routine gynecological examination noneactive Health care maintenance acut e Hyperlipidemia chronic Hypertension chronic Osteopenia chronic [facility] Work Phone: Evaluation noteNo assessment information available [facility] Work Phone: Reason for referral (narrative)* Diagnostic Procedure Only (Routine) - Pending Review Specialty Diagnoses / Procedures Referred By Karol harry Referred To Contact [facility] Diagnoses Breast cancer screening by mammogram Procedures ALTHEA SCREENING SCREENING MAMMOGRAPHY BI 2-VIEW BREAST INC CAD Yadi Hernandez MD [address] [place] [address] [facility] [address] [place] [address] Referral ID Status Reason Start Date Expiration Date Visits Requested Visits Authorized [id number] Pending Review Auto-Generat ed Referral 05/20/2021 06/19/2022 1 [facility]ative[facility]No reason for referral information [facility] Work Phone: Advance Directives Documents on File Type Date Recorded Patient Diabetes Territory Manager Expl anation Advance Directive(s) 12/13/2016 10:01 AM Advance Directive(s) 11/17/2016 1:57 PM Chief Complaint and Reason for Visit Chief Complaint 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 CARE, C PT, CC CONSENT POST MENOPAUSAL E-ORDER Reason for Visit Encounter for routin e gynecological examination Health care maintenance Hyperlipidemia Hypertension Osteopenia Chief Complaint Admit Date SCREENING October 24, 2024 7: 03am Chief Complaint Admit Date SCREENING October 24, 2024 7: 03am yearly November 12, 2024 7:41am Family History Relationship Condition Age at Onset Recorded Date/T [...] or prosecute any alcohol or drug abuse patient.[facility] the event this information is protected by the Federal Confidentiality of Alcohol and Drug Abuse Patient Records regulations: The Federal rules restrict any use of the information to criminally investigate or prosecute any alcohol or drug abuse patient.[facility] Hospital[facility] the event this information is protected by the Federal Confidentiality of Alcohol and Drug Abuse Patient Records regulations: The Federal rules restrict any use of the information to criminally investigate or prosecute any alcohol or drug abuse patient.[facility] HospitalIn the event this information is protected by the Federal Confidentiality of Alcohol and Drug Abuse Patient Records regulations: The Federal rules restrict any use of the information to criminally investigate or prosecute any alcohol or drug abuse patient.[facility] Reason for Visit (unrecogniz ed section and content) Reason Onset Date Comments Population Health Navigation Outreach 05/20/2021 [employer] Care Gaps Reason Comments Medicare Wellness Exam Care Teams (unrecognized sec tion and content) Is Analyst Relationship Specialty Start Date End Date Yadi Hernandez MD [address] [facility] [place] [address] PCP - General Internal Medicine 11/04/20 Is Analyst Relationship Specialty Start Date End Date Yadi Hernandez MD [address] [facility] [place] [address] PCP - General Internal Medicine 11/04/20 Is Analyst Relationship Specialty Start Date End Date Yadi Hernandez MD [address] [place] [address] PCP - General Internal Medicine 11/04/20 Is Analyst Relationship Specialty Start Date End Date Yadi Hernandez MD [address] [facility] [place] [address] PCP - General Internal Medicine 11/04/20 Team Status: Active Member Role Status Dates Dr. Madhu Quinones III, MD Family Provider Active Dr. Yadi Hernandez MD Primary Care Provider Active Team Status: Inactive Member Role Status Dates Dr. Yadi Hernandez MD Primary Care Provider, Referring Provider Active Dr. Joslyn Stanton DO Attending Provider Activ e Team Status: Inactive Member Role Status Dates Dr. Yadi Hernandez MD Primary Care Provider, Referring Provider Active Dr. Kym Del Rosario MD Attending Provider Active Team Status: Active Member Role Status Dates Dr. Yadi Hernandez MD Primary Care Provider Active Leena Grande Attending Provider Active Team Status: Inactive Member Role Status Dates Dr. Yadi Hernandez MD Primary Care Provider Active Dr. Joslyn Stanton DO Attending Provider, Refe rring Provider Active Team Status: Inactive Member Role Status Dates Dr. Yadi Hernandez MD Primary Care Provider Active Dr. Kym Del Rosario MD Attending Provider, Referrin g Provider Active Team Status: Active Member Role/Relationship Status Dates Dr. Kym Del Rosario MD Primary Care Provider Active Team Status: Inactive Member Role/Relationship Status Dates Dr. Joslyn Stanton DO Attending Provider Activ e Start: October 24, 2024 End: October 24, 2024 Dr. Joslyn Vande Velde , DO Referring Provider Activ e Start: October 24, 2024 End: October 24, 2024 Dr. Kym Del Rosario MD Primary Care Provider Active Start: October 24, 2024 End: October 24, 2024 Team Status: Inactive Member Role/Relationship Status Dates Dr. Yadi Hernandez MD Referring Provider Active Start: November 12, 2024 End: November 12, 2024 Dr. Kym Del Rosario MD Primary Care Provider Active Start: November 12, 2024 End: November 12, 2024 Dr. Kym Del Rosario MD Attending Provider Active Start: November 12, 2024 End: November 12, 2024 Team Status: Active Member Role/Relationship Status Dates Dr. Kym Del Rosario MD Primary Care Provider Active Start: November 12, 2024 Dr. Kym Del Rosario MD Attending Provider Active Start: November 12, 2024 Dr. Kym Del Rosario MD Referring Provider Active Start: November 12, 2024 Goals (unrecognized section and content) Goals may be documented in a n alternate sectionGoals may be documented in an alternate sectionGoals may be documented in an alternate sectionGoals may be documented in an alternate sectionGoals may be documented in an alternate section INFORMATION SOURCE (unrecogn ized section and content) DATE CREATED AUTHOR 11/06/2021 [facility] DATE CREATED AUTHOR AUTHOR'S ALVARO SZYMANSKI 10/31/2024 [facility] FOR RECORDS PERTAINING TO PATIENTS WHO ARE [...] BE BASED ON THE PRIMARY CLINICAL RECORDS. [employer] provides no warranty or guarantee of the accuracy or completeness of information in this document.
[2024-11-12 12:13] LABS: Hematocrit 36.8 % (37-47); Hemoglobin 12.1 g/dL (12.0-15.0); Immature Granulocytes Count 0.020 X10^3/uL (0.0-0.0); Mean Corp Hgb Conc 32.9 g/dL (32-36); Mean Corpuscular Volume 90.4 fL (81-99); Mean Platelet Vol. 9.9 fl (6.2-12.0); NRBC Flagged by Analyzer 0 % (0-5); Platelet Count 369 K/mm3 (150-450); RBC Distribution Width CV 13.0 % (11.6-14.6); RBC Distribution Width SD 42.6 fl (35.1-43.9); Red Blood Count 4.07 M/mm3 (4.2-5.4); White Blood Count 8.3 K/mm3 (4.4-11.0)
[2024-11-12 13:24] LABS: AST(SGOT) 25 U/L (<=31); Alanine Aminotransfer ALT/SGPT 21 U/L (<=34); Albumin, Serum 4.2 g/dL (3.4-4.8); Alkaline Phosphatase 82 U/L (35-104); Anion Gap 12 (5-15); BUN 23 mg/dL (4-19); BUN/Creat Ratio 25.5 RATIO (10-20); Calcium,Total 9.4 mg/dL (7.6-11.0); Carbon Dioxide 23.9 mmol/L (21.0-32.0); Chloride 104 mmol/L (98-108); Cholesterol 211 mg/dL (<=200); Globulin 3.2 g/dL (2.2-4.2); Glucose 101 mg/dL (70-99); Low Density Lipoprotein Calc. 121 mg/dL; Potassium 4.0 mmol/L (3.3-5.1); Triglycerides 174 mg/dL; Very Low Density Lipoprotein 35 mg/dL (5-40); Vitamin D,25 Hydroxy 54.4 ng/mL (30-100); cholesterol:hdl ratio screen 3.80
== END | disposition home or self-care (01) ==
LOC: BIMLAB 08:26
PROVIDERS: PCP Internal Medicine; Referring Provider Internal Medicine; Visit Provider Internal Medicine
DX: E78.5 Hyperlipidemia, unspecified (principal); M85.80 Other specified disorders of bone density and structure, unspecified site
CPT/HCPCS: 36415; 80053; 80061; 82306; 85025

== ENCOUNTER → 2024-12-11 | Outpatient (CLI) | payer MEDICARE, SELFPAY ==
--- NOTE | 2024-12-11 07:45 | BD_ITS ---
PROCEDURE: DEXA BONE DENSITY STUDY 12/11/2024 REASON FOR EXAM: POST MENOPAUSAL F, age 78 y/o . Postmenopausal. TECHNIQUE: Procedure Code: BDDBD Modality: DX Procedure: DEXA BONE DENSITY STUDY COMPARISON: 11/03/2022 FINDINGS: BMD and T-SCORES Lumbar spine: 0.926 g/cm2, T-score -1.1 Levels: L1 through L4 Change from prior: Prior T-score of -1.4 representing a 3.3% increase. Left femoral neck: 0.753 g/cm2, T-score -0.9 Femoral neck comparison data not recommended for monitoring change. Prior T-score -1.1 Left total hip: 0.85 g/cm2, T-score -0.7 Change from prior: Prior T-score of -0.9 representing a 3.3% increase. Right femoral neck: 0.749 g/cm2, T-score -0.9 Femoral neck comparison data not recommended for monitoring change. Prior T-score -1.0 Right total hip: 0.848 g/cm2, T-score -0.8 Change from prior: Prior T-score of -0.6 representing a 2.4% decrease. The World Health Organization has defined the following categories based on bone density: Normal bone density: T-score equal to or greater than -1.0 Osteopenia: T-score between -1.0 and -2.5 Osteoporosis: T-score equal to or less than -2.5 FRAX (or Comparable) Fracture Risk Assessment: 10 Year Probability of Fracture: Major Osteoporotic Fracture: 11% Hip Fracture: 2% (Note: FRAX is not to be reported in setting of normal range bone density, osteoporosis on DEXA, known history of osteoporosis, prior osteoporotic hip or vertebral fracture, or for any patient undergoing pharmacological treatment for bone loss.) The National Osteoporosis Foundation (NOF) recommends pharmacological treatment for patients with a FRAX 10-year risk of 3% or higher for a hip fracture, or 20% or higher for a major osteoporotic fracture, to prevent osteoporosis and reduce fracture risk. The patient does meet the pharmacological treatment recommendations for prevention of osteoporosis. BD/Dexa Bone Density Study IMPRESSION: OSTEOPENIA. Recommend follow-up in 2 years. Reading Location: [facility]
== END | disposition home or self-care (01) ==
LOC: OPBD 07:38
PROVIDERS: PCP Internal Medicine; Referring Provider Internal Medicine; Visit Provider Internal Medicine
DX: Z78.0 Asymptomatic menopausal state (principal)
CPT/HCPCS: 77080